=== PATIENT | male | born 1945 | race Caucasian/White ===

== ENCOUNTER 2020-03-25 12:22 | Emergency (ER) | payer MEDICARE, SELFPAY ==
[2020-03-25 12:31] VITALS: BP 156/59; PULSE 69; RESP 18; TEMP 36.9; O2SAT 94; BMI 47.0
--- NOTE | 2020-03-25 12:41 | ED_ITS ---
HPI - Back Pain/Injury General Chief Complaint: Back Pain/Injury Stated Complaint: lower back pain Time Seen by Provider: 03/25/20 12:41 History of Present Illness HPI Narrative: Patient complains of back pain after a fall 1 week ago, he has pre-existing compression fractures at L2 and L3 in his back and his pain is now in the same area but is worse he has no numbness or weakness no incontinence no changes to bowel or bladder, no other injury in the fall He is having problems with activities of daily life he does have a walker and a cane at home but cannot manipulate the walker in the bathroom or into the kitchen so he says he is able to make do with the cane, he has not taken any medication for the pain yet and the pain is moderate and comfortable when he lays down, but painful when he tries to change position or bend Related Data Previous Rx's Medication Instructions Recorded oxycodone 5 mg PO Q6H PRN #14 cap 03/25/20 Allergies Allergy/AdvReac Type Severity Reaction Status Date / Time naproxen [From Naprosyn] Allergy Mild UNKNOWN Verified 03/25/20 12:35 Review of Systems Review of Systems: No numbness no weakness no radiation of pain no paresthesias no abdominal pain no dysuria no incontinence no chest pain no abdominal pain no vomiting Yes all other systems are reviewed and are negative [facility] Past Medical History [facility] Narrative: Patient has medical history of diabetes and longstanding back pain with a history of a compression fracture sometime ago, as well as hypertension Source: nursing notes reviewed Medical History (Updated 03/25/20 @ 14:43 by POORNIMA Alarcon) Back fracture Diabetes Social History Social History Advance Directives: No Advance Directives Information Provided: No Physical Exam Vital Signs: Vital Signs: Last Vital Signs Temp 98.4 F 03/25/20 12:31 Pulse 69 03/25/20 12:31 Resp 18 03/25/20 12:31 BP 156/59 H 03/25/20 12:31 Pulse Ox 94 03/25/20 12:31 Body Mass Index 47.0 Patient is A&O x3, no acute distress and comfortable laying in a comfortable position but uncomfortable with standing up or changing position in the bed He is normocephalic atraumatic Neck is supple and nontender Chest wall is nontender Abdomen is soft nontender The back has lower lumbar tenderness including midline tenderness around L1-L2 area, no bruising to the skin no wounds to the skin, no CVA tenderness Extremities are full range of motion x4 without swelling or deformity, gait is uncomfortable he is limping due to his back pain Neuro is motor is 5/5 x4, sensation is intact, cranial nerves intact as tested, balance is normal, verbal interaction is normal Course Course Course Narrative: A urine was initially ordered but patient denied any discomfort with urination and did not have to urinate during his visit so that urine was cancelled The patient was discharged with analgesics Percocet for his back pain When he called his she was upset with the disposition as she felt he needed to be admitted, I had already had a discussion with the patient about whether he felt he could do his activities of daily living or if he felt he needed to go to a rehab so we would have assistance and access to physical therapy the patient said with his walker and his cane he can safely navigate and he is able to rise up from the bed on his own and does not want to go to rehab and wants to go home he is willing to try the Percocet to see if it helps him be more comfortable at home It is made clear he could return any time and that we can facilitate him entering a rehab for assistance with his back pain if needed Discharge Plan Discharge Clinical Impression: Compression fracture of lumbar vertebra Qualifiers: Encounter type: sequela Lumbar vertebra fracture level: L2 Qualified Code(s): S32.020S - Wedge compression fracture of second lumbar vertebra, sequela Patient Disposition: Home, Self-Care Additional Instructions: X-ray showed old compression fracture which was probably aggravated in your fall, no new acute fracture was seen If you take the oxycodone for pain, make sure to take the Colace and drink plenty of fluids as it can cause constipation You can take Tylenol with this, use extra-strength Tylenol Follow with your doctor for physical therapy and possible referral to a back specialist Return any time any worse condition or concerns Prescriptions: New oxycodone 5 mg capsule 5 mg PO Q6H PRN (Reason: pain) Qty: 14 RF: 0 Interventions: ED Discharge Assessment Last Done: 03/25/20 15:09 Discharge Date/Time: 03/25/20 15:10
--- NOTE | 2020-03-25 12:42 | XR_ITS ---
EXAMINATION: XR LUMBOSACRAL SPINE CLINICAL INFORMATION: Low back pain. Fall. COMPARISON: None TECHNIQUE: Three views of the lumbosacral spine. FINDINGS: There is normal lumbar lordosis. There is loss of L2 and L3 vertebral heights likely chronic compression fractures.. Rest of vertebral heights are normal. There is loss of disc height with vacuum disc phenomena at L1-L2 and L2-L3 disc levels with ventral spondylosis. No lytic process seen. XR/XR lumbar spine 2-3V IMPRESSION: [Impression fractures L2 and L3 vertebra with moderate ventral spondylosis and degenerative disc changes with vacuum disc phenomena 1-2 and L2-L3 disc levels. No acute fracture or subluxation seen.
== END 2020-03-25 15:10 | disposition home or self-care (01) ==
PROVIDERS: Emergency Provider Emergency Medicine; PCP Internal Medicine
DX: M54.5 Low back pain (principal); R29.6 Repeated falls; Z79.899 Other long term (current) drug therapy
CPT/HCPCS: 72100; 99283

== ENCOUNTER → 2022-07-07 13:25 | Outpatient (BNVA) | payer OTHER, SELFPAY | PROVIDERS: PCP Internal Medicine; Visit Provider Internal Medicine | DX: Z01.810 Encounter for preprocedural cardiovascular examination (principal); I45.2 Bifascicular block; I25.2 Old myocardial infarction; E11.9 Type 2 diabetes mellitus without complications; Z79.4 Long term (current) use of insulin | CPT/HCPCS: 93005; 99202 ==

== ENCOUNTER → 2022-07-23 14:00 | Outpatient (REF) | payer MEDICARE, SELFPAY ==
--- NOTE | 2022-07-23 14:04 | CA_ITS ---
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 Study Quality: Technically Difficult/Contrast ECG Rhythm: Sinus Conclusions: - 1. Technically limited study despite use of contrast agent 2. Normal LV systolic function with mild LVH with impaired relaxation filling pattern 3. Limited visualization of cardiac valves with cardiac valvular Doppler within normal limits Findings Procedure Information Contrast agent, definity, is being given per protocol without apparent complications. The quality of the study was technically difficult. Left Ventricle Normal left ventricular size and systolic function. There is mildly increased left ventricular wall thickness. The visually estimated ejection fraction is between 60-65%. Spectral Doppler is indicative of an impaired relaxation filling pattern. Right Ventricle Mildly increased right ventricular cavity size. Atria The left atrium was not well visualized. Interatrial shunt cannot be excluded. The right atrium was not well visualized. Aortic Valve The aortic valve was not well visualized. There is no aortic valve stenosis. There is no aortic valve regurgitation. Mitral Valve The mitral valve was not well visualized. There is no mitral valve regurgitation. There is no mitral valve stenosis. Pulmonic Valve The pulmonic valve was not well visualized. Tricuspid Valve The tricuspid valve was not well visualized. Tricuspid regurgitation envelope is inadequate for calculation of right ventricular systolic pressure. Great Vessels The aorta was not well visualized. The pulmonary artery was not well visualized. Venous The inferior vena cava was not well visualized. Pericardium/Pleural The pericardium was not well visualized. Prior Study Comparison No significant change compared to prior study dated: 06/11/2018. Measurements 2D Linear Measurements IVSd: 1.41 0.6-0.9/0.6-1.0 cm LVIDd: 4.65 3.9-5.3/4.2-5.9 cm LVIDd Index: 2.00 2.4-3.2/2.2-3.1 cm/m2 LVIDs: 3.13 2.0-3.6 cm LVPWd: 1.11 0.7-1.1 cm LA Diam: 3.70 2.7-3.8/3.0-4.0 cm LAIDs Index: 1.59 1.5-2.3 cm/m2 LV Mass: 278.78 67-162/88-224 g LV Mass Index: 119.65 43-95/49-115 g/m2 LVOT Diam: 2.20 3.0+(-)1.3 cm Mitral Valve MV Pk E: 0.51 MV PK A: 0.88 MV Decel Time: 226.00 E/A: 0.60 E'Lateral: 4.03 E'Medial: 5.66 E/E' Med: 9.10 E/E' Lat: 12.80 PHT: 66.00 MVA PHT: 3.33 Decel [place]: 2.29 Aortic Valve AoV Pk Roe: 1.21 AoV Mn Roe: 0.84 AoV VTI: 0.22 AoV Pk Grad: 6.00 Aov Mn Grad: 3.00 GEOFF Cont.VTI: 2.71 LVOT LVOT Pk Roe: 0.78 LVOT Mn Roe: 0.51 LVOT VTI: 0.16 LVOT Pk Grad: 2.00 LVOT Mn Grad: 1.00 LVOT Diam: 2.20 LVOT Area: 3.80 Diastolic Function MV Pk E: 0.51 MV Pk A: 0.88 E/A: 0.60 E'Medial: 5.66 E/E' Med: 9.10 E' Laterial: 4.03 E/E' Lat: 12.80 Right Ventricle TAPSE (mm): 20.30 TVS' Roe: 10.50 Great Vessels Aorta Sinus of Valsalva: 3.99 2.0-3.[address] [place]: 2.78 1.7-3.4 cm Ao Asc: 3.90 2.1-3.4 cm Updated in Other Vendor System with Status of Final Fernando Moe MD electronically signed on 07/24/2022 5:20:39 PM with status of Final
== END ==
LOC: HO.CARD 14:00
PROVIDERS: PCP Internal Medicine; Visit Provider Internal Medicine
DX: Z01.810 Encounter for preprocedural cardiovascular examination (principal); I25.10 Atherosclerotic heart disease of native coronary artery without angina pectoris
CPT/HCPCS: 93306; Q9957

== ENCOUNTER 2022-09-22 12:40 | Outpatient (REF) | payer OTHER, SELFPAY ==
[2022-09-22 12:59] LABS: MANUAL DIFF FLAG NO
[2022-09-22 13:35] LABS: Basophils Absolute Auto 0.1 X10*3/uL (0.0-0.2); Basophils Percent Auto 0.6 % (0-2); Eosinophils Absolute Auto 0.2 X10*3/uL (0.0-0.4); Eosinophils Percent Auto 2.2 % (0-4); Hemoglobin 16.5 g/dl (14.0-18.0); Imm Gran Abs Auto 0.03 X10*3/uL (0.00-0.03); Imm Gran Pct Auto 0.3 % (0.0-0.4); Lymphocytes Absolute Auto 2.1 X10*3/uL (1.2-4.9); Lymphocytes Percent Auto 22.2 % (20-40); Mean Corpuscular Hemoglobin 30.8 pg (27.0-33.0); Mean Corpuscular Volume 93.5 fL (80.0-98.0); Mean Platelet Volume 10.6 fL (9.4-12.4); Monocytes Absolute Auto 0.7 X10*3/uL (0.1-1.2); Neutrophils Absolute Auto 6.2 x10*3/uL (2.0-8.3); Neutrophils Percent Auto 66.7 % (45-73); Platelet Count 244 X10*3/uL (160-400); Red Blood Count 5.35 X10*6/uL (4.60-5.80); Red Cell Distribution Width 13.1 % (11.0-16.0); White Blood Count 9.3 X10*3/uL (4.8-10.8)
[2022-09-22 13:58] LABS: INTERNATIONAL NORM RATIO 0.9 (0.9-1.1); Prothrombin Time 10.3 SEC (10.0-13.1)
[2022-09-22 14:23] LABS: Anion Gap 13 (12-20); Blood Urea Nitrogen 18 mg/dL (9-16); Calcium 9.5 mg/dL (8.4-10.2); Carbon Dioxide 24 mmol/L (22-29); Chloride 110 mmol/L (96-108); Estimated Glomerular Filt Rate > 60; Glucose Random 89 mg/dL (60-115); Potassium 4.7 mmol/L (3.3-5.1); Sodium 142 mmol/L (135-145)
== END 2022-09-22 12:41 | disposition home or self-care (01) ==
LOC: HO.LAB 12:40
PROVIDERS: PCP Internal Medicine; Visit Provider Internal Medicine
DX: E78.00 Pure hypercholesterolemia, unspecified (principal); I25.10 Atherosclerotic heart disease of native coronary artery without angina pectoris; I25.2 Old myocardial infarction
CPT/HCPCS: 36415; 80048; 85025; 85610

== ENCOUNTER → 2022-10-02 13:31 | Outpatient (BNVA) | payer OTHER, SELFPAY | PROVIDERS: PCP Internal Medicine; Visit Provider Internal Medicine | DX: Z01.810 Encounter for preprocedural cardiovascular examination (principal); I45.2 Bifascicular block; I25.10 Atherosclerotic heart disease of native coronary artery without angina pectoris; I10 Essential (primary) hypertension; I25.2 Old myocardial infarction; E11.9 Type 2 diabetes mellitus without complications; E78.5 Hyperlipidemia, unspecified; E78.00 Pure hypercholesterolemia, unspecified | CPT/HCPCS: 99212 ==

== ENCOUNTER 2022-11-17 13:40 | Outpatient (REF) | payer OTHER, SELFPAY ==
[2022-11-17 15:41] LABS: Alanine Aminotransferase 22 U/L (0-40); Albumin Level 3.7 g/dL (3.5-5.0); Alkaline Phosphatase 68 U/L (39-117); Aspartate Amino Transferase 17 U/L (5-37); Bilirubin Direct 0.2 mg/dL (0.0-0.5); Bilirubin Total 0.5 mg/dL (0.0-1.0); Cholesterol 115 mg/dL; HDL Cholesterol 44 mg/dL; LDL Cholesterol Calculated 48 mg/dl; Total Protein 6.5 g/dL (6.5-8.0); Triglycerides 119 mg/dL
== END 2022-11-17 13:41 | disposition home or self-care (01) ==
LOC: HO.LAB 13:40
PROVIDERS: PCP Internal Medicine; Visit Provider Internal Medicine
DX: I25.10 Atherosclerotic heart disease of native coronary artery without angina pectoris (principal); E78.5 Hyperlipidemia, unspecified; E78.00 Pure hypercholesterolemia, unspecified
CPT/HCPCS: 36415; 80061; 80076

== ENCOUNTER 2022-12-31 16:09 | Outpatient (REF) | payer OTHER, SELFPAY ==
[2022-12-31 18:14] LABS: Anion Gap 13 (12-20); Blood Urea Nitrogen 18 mg/dL (9-16); Calcium 9.4 mg/dL (8.4-10.2); Carbon Dioxide 25 mmol/L (22-29); Chloride 109 mmol/L (96-108); Estimated Glomerular Filt Rate > 60; Glucose Random 86 mg/dL (60-115); Potassium 4.6 mmol/L (3.3-5.1); Sodium 142 mmol/L (135-145)
[2023-01-01 11:47] LABS: Basophils Absolute Auto 0.1 X10*3/uL (0.0-0.2); Basophils Percent Auto 0.7 % (0-2); Eosinophils Absolute Auto 0.2 X10*3/uL (0.0-0.4); Eosinophils Percent Auto 2.3 % (0-4); Hematocrit 50.9 % (42.0-52.0); Hemoglobin 16.1 g/dl (14.0-18.0); Imm Gran Abs Auto 0.03 X10*3/uL (0.00-0.03); Imm Gran Pct Auto 0.3 % (0.0-0.4); Lymphocytes Absolute Auto 1.9 X10*3/uL (1.2-4.9); Lymphocytes Percent Auto 22.2 % (20-40); MANUAL DIFF FLAG NO; Mean Corpuscular HGB Conc 31.6 g/dl (31.0-36.0); Mean Corpuscular Hemoglobin 30.4 pg (27.0-33.0); Mean Platelet Volume 10.6 fL (9.4-12.4); Monocytes Absolute Auto 0.8 X10*3/uL (0.1-1.2); Monocytes Percent Auto 9.4 % (2-11); Neutrophils Absolute Auto 5.6 x10*3/uL (2.0-8.3); Neutrophils Percent Auto 65.1 % (45-73); Platelet Count 252 X10*3/uL (160-400); Red Cell Distribution Width 14.1 % (11.0-16.0); White Blood Count 8.6 X10*3/uL (4.8-10.8)
[2023-01-01 11:51] LABS: INTERNATIONAL NORM RATIO 0.9 (0.9-1.1)
== END 2022-12-31 16:10 | disposition home or self-care (01) ==
LOC: HO.HHCL 16:09
PROVIDERS: Visit Provider General Practice
DX: Z01.818 Encounter for other preprocedural examination (principal); I10 Essential (primary) hypertension
CPT/HCPCS: 36415; 80048; 85025; 85610

== ENCOUNTER 2023-03-11 15:00 | Outpatient (RCR) | payer OTHER, SELFPAY | END 2023-04-22 12:43 | disposition home or self-care (01) | LOC: HO.PT 15:00 | PROVIDERS: PCP Internal Medicine; Visit Provider Physician Assistant | DX: M53.3 Sacrococcygeal disorders, not elsewhere classified (principal) | CPT/HCPCS: 97110; 97162 ==

== ENCOUNTER 2023-05-12 13:54 | Outpatient (AMB) | payer OTHER, SELFPAY ==
--- NOTE | 2023-05-12 13:56 | MHC.OFFVIS ---
Intake Vital Signs 05/12/23 13:59 Height 5 ft 9 in Weight 266 lb 12.149 oz BMI 39.4 BP 118/68 Blood Pressure Location Lt brachial Position Sitting Pulse 103 H Intake Visit Reasons: R/S 6 month follow up Intake Note: 6 month follow up w/ EKG Accompanied by: Spouse Allergies naproxen [From Naprosyn] Allergy (Mild, Verified 05/12/23 13:59) UNKNOWN Medication List - Last Reconciled 05/12/23 by Man Fragoso MD aspirin (Adult Low Dose Aspirin) 81 mg PO DAILY finasteride 5 mg PO DAILY insulin NPH and regular human 100 unit/mL (70-30) (Novolin 70-30 FlexPen U-100 Insulin) 80 units subcut BID lisinopril 5 mg PO DAILY metformin 500 mg PO DAILY oxycodone 5 mg PO Q6H PRN rosuvastatin 40 mg PO DAILY HPI HPI Comments History of Present Illness Details Arnol returns for follow-up. Originally, seen in consultation regarding preoperative risk stratification for SI joint stabilization surgery. Based on prior documentation, history of non ST elevation myocardial infarction in 2007. At that time, stress testing had shown a possible inferior wall reversible defect. However, did not undergo cardiac catheterization. Multiple risk factors including obesity, sedentary lifestyle, diabetes on insulin. He is on lisinopril apparently for renal protection and not hypertension according to him. Due to back issues, cannot walk much. Minimal ambulation. Within that limitation, does not have any clear-cut cardiac symptoms like angina. Overall, he states that he feels fine from cardiac. Main issue still difficulty in the low back. [facility], [facility] Medical History (Updated 07/07/22 @ 16:12 by Man Fragoso MD) History of non-ST elevation myocardial infarction (NSTEMI) Bifascicular block Back fracture Diabetes Surgical History (Updated 05/12/23 @ 14:00 by Inocencia Childs) History of right hip replacement History of appendectomy H/O hernia repair Family History Mother Cancer Father Cancer Social History Alcohol intake: former Patient Tobacco Use Status: Former Tobacco user Quit Date: 2012 Years Smoked: 50 +/- Review of Systems Const All systems reviewed & are unremarkable except as noted in HPI and below Reports as per HPI and Reports no additional complaints Eyes Reports as per HPI and Denies no additional complaints ENT Denies no additional complaints and Reports as per HPI Card Reports as per HPI, Reports no additional complaints, Denies acrocyanosis, Denies chest pain, Denies leg edema, Denies lightheadedness, Denies palpitations and Denies dyspnea Resp Reports as per HPI, Denies no additional complaints and Denies dyspnea GI Reports as per HPI and Denies no additional complaints Reports no additional complaints and Reports as per HPI Musc Reports no additional complaints and Reports as per HPI Skin/Breast Reports system reviewed and no additional complaints, except as documented Neuro Reports no additional complaints and Reports as per HPI Psych Reports no additional complaints and Reports as per HPI Endo Reports no additional complaints, Reports as per HPI and Denies palpitations Hans/Lymph Reports no additional complaints and Reports as per HPI Aller/Immun Reports no additional complaints and Reports as per HPI Physical Exam Vital Signs: Last Vital Signs Pulse 103 H 05/12/23 13:59 BP 118/68 05/12/23 13:59 BMI result Body Mass Index 39.4 Const General: comfortable and no acute distress Orientation/consciousness: patient oriented x3 HEENT Other: Unremarkable Head: Yes normal to inspection Neck Neck: Yes normal visual inspection Chest Chest palpation & inspection: normal inspection of the chest Resp Auscultation: clear to auscultation bilaterally Cardio Palpation: normal PMI Heart sounds: S1 normal heart sound present, S2 normal heart sound present, no gallops, no murmurs and no rubs GI Palpation (GI): Soft to palpation Back/Spine/Pelvis Other: unremarkable Skin General skin exam: no rashes or lesions noted Neuro General: patient oriented x3 Extrem General: Yes normal to inspection Psych Mental Status: mental status grossly normal Office Procedures EKG Details: EKG with sinus tachycardia at 01:03/Min; right bundle-branch block pattern left anterior fascicular block. Similar to prior. [id number], Complete Assessment & Plan Assessment & Plan (1) Coronary artery disease: Code(s): I25.10 - Atherosclerotic heart disease of [place] coronary artery without angina pectoris (2) History of non-ST elevation myocardial infarction (NSTEMI): Code(s): I25.2 - Old myocardial infarction (3) Bifascicular block: Code(s): I45.2 - Bifascicular block Plan EKG with chronic bifascicular block. Echocardiogram with LVEF of 60-65%. No significant valvular issues. Cardiac catheterization with chronic total occlusion of the dominant proximal RCA. Bridging collaterals filling distal RCA to PDA. Mild to moderate disease in the LAD. [id number] collaterals filling PDA/PLV. Overall, stable coronary disease. No ongoing symptoms. Continue long-term aspirin. Continue statins. Cholesterol level seems well controlled. We discussed any symptoms from progressive heart block in case it happens including presyncope extra and he understands. Discussed with family who came for appointment. Coding Level of Care Code Est Pt Level 4 (98495) Diagnoses Coronary artery disease I25.10 History of non-ST elevation myocardial infarction (NSTEMI) I25.2 Bifascicular block I45.2 CPT Codes EKG - CPT: 18865-[id number], Complete ([id number])
[2023-05-12 13:59] VITALS: BP 118/68; PULSE 103; BMI 39.4
== END 2023-05-12 14:17 | disposition home or self-care (01) ==
PROVIDERS: PCP Internal Medicine; Visit Provider Internal Medicine
DX: I25.10 Atherosclerotic heart disease of native coronary artery without angina pectoris (principal); I25.2 Old myocardial infarction; I45.2 Bifascicular block
CPT/HCPCS: 93010; 99214

== ENCOUNTER → 2023-05-12 13:54 | Outpatient (BNVA) | payer OTHER, SELFPAY | PROVIDERS: PCP Internal Medicine; Visit Provider Internal Medicine | DX: I25.10 Atherosclerotic heart disease of native coronary artery without angina pectoris (principal); I45.2 Bifascicular block; I25.2 Old myocardial infarction; Z79.82 Long term (current) use of aspirin; Z79.899 Other long term (current) drug therapy | CPT/HCPCS: 93005; 99212 ==

== ENCOUNTER 2024-05-26 13:06 | Outpatient (AMB) | payer OTHER, SELFPAY ==
--- NOTE | 2024-05-26 13:09 | MHC.OFFVIS ---
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 Required: No Allergies naproxen [From Naprosyn] Allergy (Mild, Verified 05/26/24 13:15) UNKNOWN Medication List - Last Reconciled 05/26/24 by Ernestina Hassan, [employer] aspirin (Adult Low Dose Aspirin) 81 mg PO DAILY finasteride 5 mg PO DAILY insulin NPH and regular human 100 unit/mL (70-30) (Novolin 70-30 FlexPen U-100 Insulin) 80 units subcut BID lisinopril 5 mg PO DAILY metformin 500 mg PO DAILY naproxen 500 mg PO BID PRN nitroglycerin mg sublingual rosuvastatin 40 mg PO DAILY HPI HPI HS pt - pre op hip fusion/ [facility]: Details: Arnol is a 78-year-old male with past medical history morbid obesity, diabetes, hyperlipidemia, CAD with NSTEMI 2007, cardiac catheterization 09/2022 with EVENT MARKETING SPECIALIST of the proximal RCA with collaterals who presents for follow-up and preop cardiovascular clearance. Today he reports he has been feeling generally well. He does have chronic pain in his R hip and plans to have surgery to stabilize his SI joint next month. He had the same surgery on his left SI joint January 2023 without any known cardiac complications. He said he was hospitalized overnight then discharged. He ambulates with a cane. He admits to being mostly sedentary. When he walks or stands he can only tolerate 5 minutes at a time then has to sit due to pain. He has no cardiac concerns at this time. He denies chest discomfort at rest or during activity. No shortness of breath, PND, orthopnea or edema. No heart palpitations, presyncope, syncope. He has had issues with a blocked ear. He quit smoking in 2011. He has not drank any alcohol He reports compliance with all his meds. [facility] Medical History History of non-ST elevation myocardial infarction (NSTEMI) Bifascicular block Back fracture Diabetes Surgical History History of right hip replacement History of appendectomy H/O hernia repair Family History Mother Cancer Father Cancer Social History Alcohol intake: former Patient Tobacco Use Status: Former Tobacco user Years Smoked: 50 +/- Review of Systems Const All systems reviewed & are unremarkable except as noted in HPI and below ENT Details: blocked ear Denies dizziness Card Denies chest pain, Denies chest pain at rest, Denies chest pain with activity, Denies rapid heart rate, Denies pedal edema, Denies edema, Denies leg edema, Denies lightheadedness, Denies palpitations, Denies dyspnea, Denies dyspnea on exertion and Denies orthopnea Resp Denies cough, Denies dyspnea and Denies dyspnea on exertion GI Denies hematochezia and Denies change in stool character Musc Details: chronic back pain and uses cane Reports abnormal gait, Denies muscle weakness, Denies numbness, Denies radiating pain into limb, Denies stiffness and Denies tingling Neuro Reports abnormal gait, Denies dizziness, Denies numbness and Denies tingling Endo Denies palpitations Physical Exam Vital Signs: BMI result Body Mass Index 41.3 Const General: cooperative, healthy appearing, comfortable and no acute distress Orientation/consciousness: patient oriented x3 Neck Neck: Yes normal visual inspection Resp Effort & Inspection: normal respiratory effort Auscultation: clear to auscultation bilaterally, no rales, no rhonchi and no wheezes Cardio Rate: regular rate Rhythm: regular rhythm Heart sounds: S1 normal heart sound present, S2 normal heart sound present, no murmurs and no rubs Peripheral pulses: Peripheral pulses 2+ throughout GI Inspection: Yes normal to inspection Skin General skin exam: no rashes or lesions noted Neuro General: patient oriented x3 Extrem General: Yes normal to inspection, No no pedal edema and No calf tenderness Psych Appearance: grossly normal Mental Status: mental status grossly normal Speech and movement: Normal speech and movement present Office Procedures EKG Details: Today, read by me, SR, RBBB, LAFB, rate 97, QTc 482ms [id number], Complete Assessment & Plan Assessment & Plan (1) Coronary artery disease: Code(s): I25.10 - Atherosclerotic heart disease of [place] coronary artery without angina pectoris Category: Medical Plan: Hx CAD with NSTEMI 2007. He started following with our office in 2022 since preop cardiovascular clearance was needed. EKGs show chronic bifascicular block. Echocardiogram 07/23/22 with LVEF of 60-65%. No significant valvular issues. Cardiac catheterization 09/25/22 with chronic total occlusion of the dominant proximal RCA. Bridging collaterals filling distal RCA to PDA. Mild to moderate disease in the LAD. [id number] collaterals filling PDA/PLV. Today he reports no anginal symptoms. He is sedentary due to chronic right hip pain and ambulates with a cane. EKG done today showing normal sinus rhythm, right bundle branch block, left anterior fascicular block, rate 97, no significant change from prior EKG. Will continue med management for stable CAD. Continue aspirin indefinitely. Continue rosuvastatin with ideal LDL goal less than 70. He is not on beta-monty due to bifascicular block. He is on lisinopril for blood pressure control. Blood pressure today 114/62. Signs and symptoms of angina reviewed. Cardiology follow-up in 1 year, sooner if needed. (2) Bifascicular block: Code(s): I45.2 - Bifascicular block Category: Medical Plan: Chronic bifascicular block. EKG done today showing no significant change. Finding of bifascicular block discussed with him. He was asking about potential for future pacemaker. We did discuss this can not be excluded. (3) High cholesterol: Code(s): E78.00 - Pure hypercholesterolemia, unspecified Category: Medical Plan: [place] LDL goal less than 70. Labs done 11/17/2022 had shown LDL 48. He tells me that labs are followed by his PCP. Continue rosuvastatin. 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 He is hoping to be more ambulatory once his 2nd surgery is completed. (6) Preoperative cardiovascular examination: Code(s): Z01.810 - Encounter for preprocedural cardiovascular examination Category: Medical Plan: Preop for SI joint fusion at [facility] with Dr. Dennis. He can proceed with intermediate cardiac risk. Aspirin can be held if needed for the procedure then restart as soon as cleared by surgeon to do so. Continue rosuvastatin. Call/consult Cardiology if needed. Plan Time spent on chart review, documentation, interview assessment Coding Level of Care Code Est Pt Level 4 (74719) Complex EM visit Add On G2211 Diagnoses Coronary artery disease I25.10 Bifascicular block I45.2 High cholesterol E78.00 Diabetes mellitus with insulin therapy E11.9; Z79.4 Obesity E66.9 Preoperative cardiovascular examination Z01.810 CPT Codes EKG - CPT: 76286-[id number], Complete ([id number]) Time Spent (min) 30
[2024-05-26 13:10] VITALS: BP 114/62; PULSE 97; BMI 41.3
--- OUTSIDE RECORDS SUMMARY | 2024-05-26 13:12 | XMS_ITS | Encounter Summary ---
Author Organization [facility] Address [address] [place] [address] Care Team Providers Care Hotel Maintenance Worker Name Role Phone Kamilah Kincaid MD Primary Care Provide r Nathan Duvall MD Unavailable [phone] Man Fragoso MD Unavailable [phone] Encounter Details Date Type Department Care Team (Late st Contact Info) Description 01/12/2023 Scanned Document [facility] Neurosurgery [address] [phone] Social History Tobacco Use Types Packs/Day Years Used Date Smoking Tobacco: Former Cigarettes Q uit: 2012 Smokeless Tobacco: Never Alcohol Use Standard Drinks/Week Comments Never 0 (1 standard drink = 0.6 oz pur e alcohol) AUDIT-C Answer Date Recorded Q1: How often do you have a drink containing alcohol? Never 01/01/2023 Q2: How many drinks containi ng alcohol do you have on a typical day when you are drinking? Patient does not drink Q3: How often do you have si x or more drinks on one occasion? Never 01/01/2023 PHQ-2 Answer Date Recorded PHQ-2 Total Score 0 01/14/2023 Sex and Gender Information Value Date Recorded Sex Assigned at Male 11/27/2022 9:30 AM EDT Gender Identity Male 11/27/2022 9:30 AM EDT Sexual Orientation Heterosexual (straight) 11/27 9:30 AM EDT documented as of this encounter Plan of Treatment Upcoming Encounters Date Type Department Care Team (Late st Contact Info) Description 06/03/2024 1:00 PM EST Office Visit [facility] Neurosurgery [address] [phone] Shane Henriquez PA-C [address] [address] 06/21/2024 11:15 AM EDT Hospital Encounter [facility] Perioperative Surgical Services [address] [place] [address], [place] [phone] Kenny Dennis MD [address] [address] 06/21/2024 11:15 AM EDT - 06/21/2024 2:30 PM EDT Surgery [facility] Perioperative Surgical Services [address] [place] [address], [place] [phone] Kenny Dennis MD [address] [address] FIXATION SACRO ILLIAC JOINT-LEFT 07/08/2024 1:00 PM EDT Office Visit [facility] Neurosurgery [address] [phone] Shane Henriquez PA-C [address] [place] [phone] 09/23/2024 1:00 PM EDT Office Visit [facility] Neurosurgery [address] [phone] Shane Henriquez PA-C [address] [place] [phone] Scheduled Procedures Name Priority Associated Diagnoses Date/Ti me FIXATION SACRO ILLIAC JOINT Sacroiliac joint dysfunction 06/21/2024 11:15 AM EDT documented as of this encounter Visit Diagnoses Not on filedocumented in this encounter Care Teams Hotel Maintenance Worker Relationship Specialty Start Date End Date Kamilah Kincaid MD [address] [place] [address] PCP - General Internal Medicine 03/05/22 Nathan Duvall MD [address] [place] [address] Physician Psychiatry, General 03/05/22 Man Fragoso MD [address] [place] [address] Internal Medicine 04/12/24 documented as of this encounter
--- OUTSIDE RECORDS SUMMARY | 2024-05-26 13:12 | XMS_ITS ---
Author Name [facility] Organization Unknown History of Medication Use Medication Directions Dispensed Refills Start Date End Date Stat us finasteride (PROSCAR) 5 MG tablet Take 1 tablet (5 mg total) by mouth every morning. active Insulin Syringe-Needle U-100 (INSULIN SYRINGE 1CC/31GX5/16 ) 31G X 5/16 1 ML Misc 2 times a day. as directed 05/08/2021 active senna-docusate (SENNA-S) 8.6-50 MG Take 2 tablets by mouth nightly. 01/15/2023 02/15/2023 active lisinopril (PRINIVIL,ZeSTRIL) 10 MG tablet Take 1 tablet (10 mg total) by mouth every morning. 03/17/2022 active melatonin 3 MG Tab tablet Take 4 tablets (12 mg total) by mouth nightly. active finasteride (PROPECIA) 1 MG tablet Take 1 tablet (1 mg total) by mouth daily. 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
--- OUTSIDE RECORDS SUMMARY | 2024-05-26 13:12 | XMS_ITS | Encounter Summary ---
Author Organization [employer] Address [address] [facility] 7[address] [place] [address] Care Team Providers Care Supervisor Chassis Assembly Name Role Phone Kamilah Kincaid MD Primary Care Provide r Encounter Details Date Type Department Care Team (Late Contact Info) Description 08/12/2022 Telephone [facility] MEDICINE [address] [place] [phone] Kamilah Kincaid MD [address] [place] [address] [phone] Social History Tobacco Use Types Packs/Day Years Used Date Smoking Tobacco: Former Cigarettes Smokeless Tobacco: Never Alcohol Use Standard Drinks/Week Comments Never 0 (1 standard drink = 0.6 oz pur e alcohol) PHQ-2 Answer Date Recorded Patient Health Questionnaire-2 Score 0 04/17/2022 Depression Answer Date Recorded Patient Health Questionnaire-2 Score 0 04/17/2022 Sex and Gender Information Value Date Recorded Sex Assigned at Male 02/10/2022 10:22 AM EDT Legal Sex Male 10:22 AM EDT Gender Identity Male 02/10/2022 10:22 AM EDT Sexual Orientation Straight 02/10/2022 10 :22 AM EDT documented as of this encounter Plan of Treatment Upcoming Encounters Date Type Department Care Team (Late st Contact Info) Description 06/08/2024 2:15 PM EST Office Visit [facility] MEDICINE [address] [place] [phone] Kamilah Kincaid MD [address] [place] [address] [phone] documented as of this encounter Visit Diagnoses Not on filedocumented in this encounter Care Teams Supervisor Chassis Assembly Relationship Specialty Start Date End Date Kamilah Kincaid MD [address] [place] [address] PCP - General Family Medicine 12/23/17 documented as of this encounter
--- OUTSIDE RECORDS SUMMARY | 2024-05-26 13:12 | XMS_ITS | Clinical Summary ---
Author Organization [employer] Address [address] [facility] 7[address] [place] [address] Care Team Providers Care House Piping Inspector Name Role Phone Kamilah Kincaid MD Primary Care Provide r Allergies No known active allergies Medications Lidocaine 4 % patch use one daily 021 Active finasteride (Proscar) 5 MG tablet Take 5 mg by mouth daily. 016 Active BinaxNOW COVID-19 Ag Home Test kit TEST DIRECTED TODAY 022 Active bisacodyl (Dulcolax) 5 MG EC tablet take 2 tablet by oral route every day 018 Active acetaminophen (Tylenol 8 Hour) 650 MG ER tablet Take 650 mg by mouth as needed. 022 Active glucose 4 g chewable tabletIndicatio ns:Type 2 diabetes mellitus with hypoglycemia without coma, with long-term current use of insulin (CMS/[facility]) Chew 4 tablets (16 g) if needed for low blood sugar. 50 tablet 12 023 Active metFORMIN (Glucophage) 500 MG tablet TAKE 1 TABLET BY MOUTH EVERY MORNING AND 2 TABLETS EVERY EVENING 270 tablet 1 023 Active rosuvastatin (Crestor) 40 MG tablet Take 40 mg by mouth in the morning. 023 Active aspirin 81 MG EC tablet Take 81 mg by mouth. 023 Active Blood Glucose Monitoring Suppl (FreeStyle Lite) deviceIndicatio ns:Type 2 diabetes mellitus with hypoglycemia without coma, with long-term current use of insulin (CMS/HCC) Inject under the skin 2 times daily. Use to monitor blood glucose twice daily 1 each 023 Active naproxen (Naprosyn) 500 MG tablet TAKE 1 TABLET BY MOUTH TWICE DAILY NEEDED FOR PAIN 180 tablet 024 Active insulin NPH-insulin regular (HumuLIN 70/30) (70-30) 100 UNIT/ML injectionIndica tions:Type 2 diabetes mellitus without complication, with long-term current use of insulin (CMS/HCC) ADMINISTER 65 UNITS SUBCUTANEOUSLY TWICE DAILY WITH BREAKFAST AND WITH DINNER 40 mL 1 024 Active insulin syringe-needle U-100 (BD Insulin Syringe U/F) 31G X 5/16 1 mL misc Use twice a day as instructed 100 each 12 024 2024 Active FREESTYLE LITE test strip TEST BLOOD SUGAR TWICE DAILY BEFORE MEALS 50 strip 11 024 Active NovoLIN 70/30 (70-30) 100 UNIT/ML injectionIndica tions:Type 2 diabetes mellitus without complication, with long-term current use of insulin (CMS/HCC) ADMINISTER 65 UNITS UNDER THE SKIN TWICE DAILY WITH BREAKFAST AND WITH DINNER 40 mL 1 024 Active lisinopril 10 MG tablet TAKE 1 TABLET(10 MG) BY MOUTH EVERY DAY IN THE MORNING 90 tablet 1 024 Active nitroglycerin (Nitrostat) 0.4 MG SL tabletIndicatio ns:History of [place] (myocardial infarction) PLACE 1 TABLET (0.4MG) BY SUNLINGUAL ROUTE AT 1ST SIGN OF ATTACK; MAY REPEAT EVERY 5 MINUTES UNTIL RELIEF; IF PAIN PERSISTS AFTER 3 TABLETS IN 15 MINUTES, PROMPT MEDICAL ATTENTION IS RECOMMENDED. 25 tablet 1 025 Active nitroglycerin (Nitrostat) 0.4 MG SL tabletIndicatio ns:History of [place] (my[place] infarction) PLACE 1 TABLET (0.4MG) BY SUNLINGUAL ROUTE AT 1ST SIGN OF ATTACK; MAY REPEAT EVERY 5 MINUTES UNTIL RELIEF; IF PAIN PERSISTS AFTER 3 TABLETS IN 15 MINUTES, PROMPT MEDICAL ATTENTION IS RECOMMENDED. 25 tablet 1 023 2024 Discontinued(R eorder (will not trigger notification to Pharmacy)) Active Problems Problem Noted Date Diagnosed Date Clogged ear, left 12/08/2023 Assessment & Plan (12/08/2023 3:46 PM EDT): Patient reports he has an appointment on 02/2024, I advise not to miss his appointment Excessive ear wax, bilateral 06/10/2023 Pre-operative exam 12/31/2022 Assessment & Plan (01/04/2023 7:37 PM EDT): Pt is moderate risk for orthopedic surgery. EKG with stable bifasicular block. Hold insulin day of surgery, hold Lisinopril day of surgery Pain management per ortho team, not on any chronic opioids History of [place] (my[place] infarction) 06/26/2022 Diabetes mellitus 05/15/2022 Assessment & Plan (12/08/2023 11:47 AM EDT): Diabetes is: controlled - Lab Results Component Value Date HGBA1C 6.0 06/10/2023 HGBA1C 5.6 06/26/2022 HGBA1C 4.8 10/15/2021 HGBA1C 4.8 10/15/2021 - Lab Results Component Value Date CREATININE 0.82 12/31/2022 -Changes: None - Diabetic eye exam:pending - Diabetic foot exam:pending - Continue lifestyle modifications - Continue current medications - Follow up: 3 months Assessment & Plan (06/12/2023 5:09 PM EST): Diabetes is: controlled - Lab Results Component Value Date HGBA1C 6.0 06/10/2023 HGBA1C 5.6 06/26/2022 HGBA1C 4.8 10/15/2021 HGBA1C 4.8 10/15/2021 - Lab Results Component Value Date CREATININE 0.82 12/31/2022 -Changes: none - Diabetic eye exam:up to date - Diabetic foot exam:up to date - Continue lifestyle modifications - Continue current medications - Follow up: 3 months Disorder of sacrum 04/25/2021 Assessment & Plan (06/18/2022 9:14 AM EST): Surgery planned for later in the month, sacral fusion Attend pre-op June 26, 2022 Medication list revised to remove out of date and duplicate medications Polyp of colon 08/24/2017 Overview (12/31/2022): repeat screening colonoscopy in 2020 repeat screening colonoscopy in 2020 repeat screening colonoscopy in 2020 Hypertension 03/02/2012 Assessment & Plan (12/08/2023 3:46 PM EDT): Patient reports BP 120/75mmhg C/w same medication regimen and interventions Assessment & Plan (06/12/2023 5:08 PM EST): - Aerobic exercise to reduce BP. Initial goal of 30 min walk 3-5x/week. Increase as tolerated. - low-sodium diet (goal: <2g/day) and heart healthy diet such as DASH to reduce BP and prevent ASCVD. - Home BP monitoring 1-2 x day with goal of <140/90. - Seek immediate medical attention for chest pain, palpitations, SOB, syncope, or sudden changes in mental status. - Do not change or discontinue current prescriptions without first consulting health care provider Chronic low back pain 10/13/2011 Erectile dysfunction 10/13/2011 Severe obesity (BMI 35.0-39.9) with comorbidity 10/13/2011 Resolved Problems Problem Noted Date Diagnosed Date Resolved Date Occult blood in stools 04/17/202206/18 Shoulder joint pain 09/14/2017 01/01/20 23 Hyperlipidemia 06/04/2012 06/18/2022 Diabetes mellitus type 2, uncomplicated 10/13/2011 06/26/2022 Assessment & Plan (06/18/2022 9:14 AM EST): Fasting blood glucoses reportedly < 120 Continue current insulin regimen plus Metformin Encounters Date Type Department Care Team Description 05/05/2024 Refill [facility] [address] [place] [address] Kamilah Kincaid MD History of [place] (my[place] infarction) 05/03/2024 Telephone [facility] [address] [place], [place] [phone] Kamilah Kincaid MD PRE-OP 04/09/2024 Refill [facility] [address] [place], [place] [phone] Kamilah Kincaid MD 03/28/2024 Telephone [facility] [address] [place] [phone] Kamilah Kincaid MD FYI 03/25/2024 Refill [facility] [address] [place], [place] [phone] Kamilah Kincaid MD Type 2 diabetes mellitus without complication, with long-term current use of insulin ([facility]) from Last 3 Months Immunizations Name Administration Dates Next Due Influenza, High Dose Seasona l, Preservative Free 02/02/2019,02/21/2018,03/23/2017,01/19 Influenza, IIV3, injectable 03/06/2014,1 04/16/2010,01/14/2010,02/07,01/27/2007 Influenza, Split (incl. colby fied surface antigen) 03/09/2013,03/02/2012 Nicole SARS-CoV-2 Vaccination 06/27/2020 Novel [id number], preservative-free 02/23/2009 Pneumococcal Conjugate PCV 13 05/13/2016 Pneumococcal Polysaccharide PPSV23 12/07/2012 Rabies, intramuscular 03/24/2014 Tdap 09/01/2012 Zoster, live 02/01/2014 Social History Tobacco Use Types Packs/Day Years Used Date Smoking Tobacco: Former Cigarettes Smokeless Tobacco: Never Tobacco Cessation:Counseling Given: Not Answered Alcohol Use Standard Drinks/Week Comments Never 0 (1 standard drink = 0.6 oz pur e alcohol) PHQ-2 Answer Date Recorded Patient Health Questionnaire-2 Score 0 04/17/2022 Housing Stability Answer Date Recorded What is your housing situation today? I have ric cristhian 01/28/[address] you li ve. Do you have problems with any of the following? None of the above 01/28/2023 Food Insecurity Answer Date Recorded Within the past 12 months, y ou worried that your food would run out before you got money to buy more: Never True 01/28/2023 Within the past 12 months,th e food you bought just didn't last and you didn't have enough money to get more: Never True Transportation Answer Date Recorded In the past 12 months, has l ack of transportation kept you from medical appts, meetings, work or from getting things needed for daily living? No 01/28/2023 Utilities Answer Date Recorded In the past 12 months, has t he electric, gas, oil or water company threatened to shut off services in your home? No 01/28/2023 Depression Answer Date Recorded Patient Health Questionnaire-2 Score 0 04/17/2022 Sex and Gender Information Value Date Recorded Sex Assigned at Male 02/10/2022 10:22 AM EDT Legal Sex Male 10:22 AM EDT Gender Identity Male 02/10/2022 10:22 AM EDT Sexual Orientation Straight 02/10/2022 10 :22 AM EDT Last Filed Vital Signs Vital Sign Reading Time Taken Comments Blood Pressure 151/81 06/10/2023 3:05 PM EST Pulse 89 06/10/2023 3:05 PM EST Temperature 36.1 ??C (97 ??F) 06/10/2023 3:05 PM EST Respiratory Rate 16 06/10/2023 3:05 PM EST Oxygen Saturation 98% 06/10/2023 3:05 PM EST Inhaled Oxygen Concentration - - Weight 123 kg (270 lb 3.2 oz) 06/10/2023 3:05 PM EST Height 175.3 cm (5' 9 ) 06/10/2023 3:05 PM EST Body Mass Index 39.9 06/10/2023 3:05 PM EST Plan of Treatment Upcoming Encounters Date Type Department Care Team (Late st Contact Info) Description 06/08/2024 2:15 PM EST Office Visit [facility] [address] [place] [address] Kamilah Kincaid MD [address] [place] [address] Health Maintenance Due Date Last Done Comments Diabetes: Foot Exam 10/20/1955 Eye Exam 10/20/1955 Alcohol/Substance Use Screening 1957 Hepatitis C Screening 10/20/1963 Diabetes: Urine Protein Screening 1964 Zoster Vaccines (2 of 3) 03/29/2014 02/01/2014 RSV Patients and Patients Aged 60 years or older (1 - 1-dose 75+ series) 2020 DTaP/Tdap/Td Vaccines (2 - Td or Tdap) 09/01/2022 09/01/2012 Depression Screening 04/17/2023 04/17/2022, 04/17/19 SDOH Screening 04/17/2023 04/17/2022 Lipid Panel 11/18/2023 11/17/2022, 06/11, 10/15/2021 Diabetes: Hemoglobin A1C 12/09/2023 024, 06/26/2022, 10/15/2021 COVID-19 Vaccine ( season) 2023 04/11/2021, 06/27/2020 Influenza Vaccine (#1) 2023 9, 02/21/2018, 03/23/2017, Additional history exists Tobacco Screening 01/01/2024 12/31/2022 Pneumococcal Vaccine: 50+ Years Completed 05/13/2016, 12/07/2012 HIB Vaccines Aged Out No longer eligi ble based on patient's age to complete this topic HPV Vaccines Aged Out No longer eligi ble based on patient's age to complete this topic Hepatitis A Vaccines Aged Out No long er eligible based on patient's age to complete this topic Hepatitis B Vaccines Aged Out No long er eligible based on patient's age to complete this topic IPV Vaccines Aged Out No longer eligi ble based on patient's age to complete this topic Meningococcal Vaccine Aged Out No jeevan tomás eligible based on patient's age to complete this topic RSV under 20 months Aged Out No longe r eligible based on patient's age to complete this topic Rotavirus Vaccines Aged Out No longer eligible based on patient's age to complete this topic Procedures Procedure Name Priority Date/Time Associated Diagnosis Comments POCT GLYCATED HEMOGLOBIN, TOTAL Routine 06/10/2023 3:07 PM EST Type 2 diabetes mellitus with hypoglycemia without coma, with long-term current use of insulin ([facility]) LIPID PANEL, STANDARD Routine 11/17/2022 1:55 PM EDT from Last 3 Months or Most Recently Relevant to Health Maintenance Results * POCT HGB A1C (06/10/2023 3:07 PM EST) Hemoglobin A1C 6.0 4.0 - 6.0 % QC Media Lot # [id number] Lot# Expiration Date Blood 06/10/2023 3:07 PM EST us Kamilah Gtz MD POINT OF CARE TEST EN TER/EDIT ORDERABLES Final Result * Lipid Panel, Standard (11/17/2022 1:55 PM EDT) Triglycerides 119 mg/dL [facility] Comment:Desirable Triglyceri de: less than 150 mg/dLBorderline High Triglyceride 150-199 mg/dLHigh Triglyceride: 200-499 mg/dLVery High Triglyceride: greater than or equal to 5OO mg/dL Cholesterol 115 mg/dL [facility] Comment:Desirable Cholestero l: less than 200 mg/dLBorderline High Cholesterol: 200-239 mg/dLHigh Cholesterol: greater than 239 mg/dL LDL Cholesterol Calculated 48 mg/dl [facility] Comment:Desirable LDL: less than 100 mg/dLNear Optimal/Above Optimal LDL: 110- 129 mg/dLBorderline High LDL: 130-159 mg/dLHigh LDL: 160-189 mg/dLVery High LDL: greater than or equal to 190 mg/dL HDL Cholesterol 44 mg/dL [facility] Comment:Desirable HDL: great er than 40 mg/dL Note: This HDL assay may give artificially low results in patients with liver disease. 11/17/2022 1:55 PM EDT 11/17/2022 1:55 PM EDT us Generic External Data Provider LAB BLOOD ORDERAB LES Final Result [facility] [address] [place] [phone] from Last 3 Months or Most Recently Relevant to Health Maintenance Insurance [facility] Care Teams House Piping Inspector Relationship Specialty Start Date End Date Kamilah Kincaid MD [address] [place] [id number] PCP - General Family Medicine 12/23/17
--- OUTSIDE RECORDS SUMMARY | 2024-05-26 13:12 | XMS_ITS | Encounter Summary ---
Author Organization [facility] Address [address] [place] [address] Care Team Providers Care Reel Hooker Name Role Phone Kamilah Kincaid MD Primary Care Provide r Nathan Duvall MD Unavailable [phone] Man Fragoso MD Unavailable [phone] Encounter Details Date Type Department Care Team (Late Contact Info) Description 01/09/[address] [facility] Neurosurgery [address] [phone] Social History Tobacco Use Types [...] more drinks on one occasion? Never 01/01/2023 Sex and Gender Information Value Date Recorded Sex Assigned at Male 11/27/2022 9:30 AM EDT Gender Identity Male 11/27/2022 9:30 AM EDT Sexual Orientation Heterosexual (straight) 11/27 9:30 AM EDT documented as of this encounter Plan of Treatment Upcoming Encounters Date Type Department Care Team (Late Contact Info) Description 06/03/2024 1:00 PM EST Office Visit [facility] Neurosurgery [address] [phone] Shane Henriquez PA-C [address] [address] 06/21/2024 11:15 AM EDT Hospital Encounter [facility] Services [address] [place] [address], [place] [phone] Kenny Dennis MD [address] [address] 06/21/2024 11:15 AM EDT - 06/21/2024 2:30 PM EDT Surgery [facility] Services [address] [place] [address], [place] [phone] Kenny Dennis MD [address] [address] FIXATION SACRO ILLIAC JOINT-LEFT 07/08/2024 1:00 PM EDT Office Visit [facility] Neurosurgery [address] [phone] Shane Henriquez PA-C [address] [address] 09/23/2024 1:00 PM EDT Office Visit [facility] Neurosurgery [address] [phone] Shane Henriquez PA-C [address] [place] [phone] Scheduled Procedures Name Priority Associated Diagnoses Date/Ti me FIXATION SACRO ILLIAC JOINT Sacroiliac joint dysfunction 06/21/2024 11:15 AM EDT documented as of this encounter Visit Diagnoses Not on filedocumented in this encounter Care Teams Reel Hooker Relationship Specialty Start Date End Date Kamilah Kincaid MD [address] [place] [address] PCP - General Internal Medicine 03/05/22 Nathan Duvall MD [address] [place] [address] Physician Psychiatry, General 03/05/22 Man Fragoso MD [address] [place] [address] Internal Medicine 04/12/24 documented as of this encounter
--- OUTSIDE RECORDS SUMMARY | 2024-05-26 13:13 | XMS_ITS | Encounter Summary ---
Author Organization [facility] Address [address] [place] [address] Care Team Providers Care Estimate Clerk Name Role Phone Kamilah Kincaid MD Primary Care Provide r Nathan Duvall MD Unavailable [phone] Man Fragoso MD Unavailable [phone] Encounter Details Date Type Department Care Team (Late st Contact Info) Description 03/07/2024 Scanned Document [facility] Neurosurgery [address] [phone] [place] [address] Social History Tobacco Use Types Packs/Day Years [...] Description 06/03/2024 1:00 PM EST Office Visit [facility] Neurosurgery [address] [phone] Shane Henriquez PA-C [address] [address] 06/21/2024 11:15 AM EDT Hospital Encounter [facility] Perioperative Surgical Services [address] [place] [phone] Kenny Dennis MD [address] [phone] 06/21/2024 11:15 AM EDT - 06/21/2024 2:30 PM EDT Surgery [facility] Perioperative Surgical Services [address] [place] [address], [place] [phone] Kenny Dennis MD [address] [place] [address] [phone] FIXATION SACRO ILLIAC JOINT-LEFT 07/08/2024 1:00 PM EDT Office Visit [facility] Neurosurgery [address] [phone] Shane Henriquez PA-C [address] [address] 09/23/2024 1:00 PM EDT Office Visit [facility] Neurosurgery [address] [phone] Shane Henriquez PA-C [address] [address] Scheduled Procedures Name Priority Associated Diagnoses Date/Ti me FIXATION SACRO ILLIAC JOINT Sacroiliac joint dysfunction 06/21/2024 11:15 AM EDT documented as of this encounter Visit Diagnoses Not on filedocumented in this encounter Care Teams Estimate Clerk Relationship Specialty Start Date End Date Kamilah Kincaid MD [address] [place] [address] PCP - General Internal Medicine 03/05/22 Nathan Duvall MD [address] [place] [address] Physician Psychiatry, General 03/05/22 Man Fragoso MD [address] [place] [address] Internal Medicine 04/12/24 documented as of this encounter
--- OUTSIDE RECORDS SUMMARY | 2024-05-26 13:13 | XMS_ITS | Encounter Summary ---
Author Organization [facility] Address [address] [place] [address] Care Team Providers Care Braille Coder Name Role Phone Kamilah Kincaid MD Primary Care Provide r Nathan Duvall MD Unavailable [phone] Man Fragoso MD Unavailable [phone] Encounter Details Date Type Department Care Team (Late st Contact Info) Description 03/16/2023 Scanned Document [facility] Neurosurgery [address] [phone] Social History Tobacco Use Types [...] Description 06/03/2024 1:00 PM EST Office Visit [facility] Neurosurgery [address] [phone] Shane Henriquez PA-C [address] [address] 06/21/2024 11:15 AM EDT Hospital Encounter [facility] Perioperative Surgical Services [address] [place] [address], [place] [phone] Kenny Dennis MD [address] [address] 06/21/2024 11:15 AM EDT - 06/21/2024 2:30 PM EDT Surgery [facility] Perioperative Surgical Services [address] [place] [address], [place] [phone] Kenny Dennis MD [address] [address] FIXATION SACRO ILLIAC JOINT-LEFT 07/08/2024 1:00 PM EDT Office Visit [facility] Neurosurgery [address] [phone] Shane Henriquez PA-C [address] [place] [address] 09/23/2024 1:00 PM EDT Office Visit [facility] Neurosurgery [address] [phone] Shane Henriquez PA-C [address] [place] [address] [phone] Scheduled Procedures Name Priority Associated Diagnoses Date/Ti me FIXATION SACRO ILLIAC JOINT Sacroiliac joint dysfunction 06/21/2024 11:15 AM EDT documented as of this encounter Visit Diagnoses Not on filedocumented in this encounter Care Teams Braille Coder Relationship Specialty Start Date End Date Kamilah Kincaid MD [address] [place] [address] PCP - General Internal Medicine 03/05/22 Nathan Duvall MD [address] [place] [address] Physician Psychiatry, General 03/05/22 Man Fragoso MD [address] [place] [address] Internal Medicine 04/12/24 documented as of this encounter
--- OUTSIDE RECORDS SUMMARY | 2024-05-26 13:13 | XMS_ITS | Encounter Summary ---
Author Organization [facility] Address [address] [place] [address] Care Team Providers Care 4Th Grade Math Teacher Name Role Phone Kamilah Kincaid MD Primary Care Provide r Nathan Duvall MD Unavailable [phone] Man Fragoso MD Unavailable [phone] Encounter Details Date Type Department Care Team (Late st Contact Info) Description 03/14/2024 Scanned Document [facility] Neurosurgery [address] [phone] [place] [address] Social History Tobacco Use Types Packs/Day Years [...] Description 06/03/2024 1:00 PM EST Office Visit [facility] Neurosurgery [address] [phone] Shane Henriquez PA-C [address] [address] 06/21/2024 11:15 AM EDT Hospital Encounter [facility] Perioperative Surgical Services [address] [place] [address] [phone] Kenny Dennis MD [address] [phone] 06/21/2024 11:15 AM EDT - 06/21/2024 2:30 PM EDT Surgery [facility] Perioperative Surgical Services [address] [place] [address], [place] [phone] Kenny Dennis MD [address] [place] [address] [phone] FIXATION SACRO ILLIAC JOINT-LEFT 07/08/2024 1:00 PM EDT Office Visit [facility] Neurosurgery [address] [phone] Shane Henriquez PA-C [address] [address] 09/23/2024 1:00 PM EDT Office Visit [facility] Neurosurgery [address] [phone] Shane Henriquez PA-C [address] [address] Scheduled Procedures Name Priority Associated Diagnoses Date/Ti me FIXATION SACRO ILLIAC JOINT Sacroiliac joint dysfunction 06/21/2024 11:15 AM EDT documented as of this encounter Visit Diagnoses Not on filedocumented in this encounter Care Teams 4Th Grade Math Teacher Relationship Specialty Start Date End Date Kamilah Kincaid MD [address] [place] [address] PCP - General Internal Medicine 03/05/22 Nathan Duvall MD [address] [place] [address] Physician Psychiatry, General 03/05/22 Man Fragoso MD [address] [place] [address] Internal Medicine 04/12/24 documented as of this encounter
--- OUTSIDE RECORDS SUMMARY | 2024-05-26 13:13 | XMS_ITS | Encounter Summary ---
Author Organization [facility] Address [address] [place] [address] Care Team Providers Care Hospice Volunteer Name Role Phone Kamilah Kincaid MD Primary Care Provide r Nathan Duvall MD Unavailable [phone] Man Fragoos MD Unavailable [phone] Encounter Details Date Type Department Care Team (Late st Contact Info) Description 04/22/2023 Scanned Document [facility] Neurosurgery [address] [phone] Social History Tobacco Use Types [...] Description 06/03/2024 1:00 PM EST Office Visit [facility] Neurosurgery [address] [phone] Shane Henriquez PA-C [address] [address] 06/21/2024 11:15 AM EDT Hospital Encounter [facility] Perioperative Surgical Services [address] [place] [address], [place] [phone] Kenny Dennis MD [address] [address] 06/21/2024 11:15 AM EDT - 06/21/2024 2:30 PM EDT Surgery [facility] Perioperative Surgical Services [address] [place] [address], [place] [phone] Kenny Dennis MD [address] [address] FIXATION SACRO ILLIAC JOINT-LEFT 07/08/2024 1:00 PM EDT Office Visit [facility] Neurosurgery [address] [phone] Shane Henriquez PA-C [address] [place] [address] 09/23/2024 1:00 PM EDT Office Visit [facility] Neurosurgery [address] [phone] Shane Henriquez PA-C [address] [place] [address] [phone] Scheduled Procedures Name Priority Associated Diagnoses Date/Ti me FIXATION SACRO ILLIAC JOINT Sacroiliac joint dysfunction 06/21/2024 11:15 AM EDT documented as of this encounter Visit Diagnoses Not on filedocumented in this encounter Care Teams Hospice Volunteer Relationship Specialty Start Date End Date Kamilah Kincaid MD [address] [place] [address] PCP - General Internal Medicine 03/05/22 Nathan Duvall MD [address] [place] [address] Physician Psychiatry, General 03/05/22 Man Fragoso MD [address] [place] [address] Internal Medicine 04/12/24 documented as of this encounter
--- OUTSIDE RECORDS SUMMARY | 2024-05-26 13:13 | XMS_ITS | Encounter Summary ---
Author Organization [employer] Address [address] [facility] 7t [place] [address] Care Team Providers Care Business Banking Sales Assistant Name Role Phone Kamilah Kincaid MD Primary Care Provide r Reason for Visit * Reason Onset Date Comments Paperwork/Forms 07/07/2022 Encounter Details Date Type Department Care Team ([facility] st Contact Info) Description 07/07/2022 Telephone [facility] MEDICINE [address] [place] [address] Kamilah Kincaid MD [address] [place] [address] Paperwork/Forms Social History Tobacco Use Types Packs/Day Years [...] Orientation Straight 02/10/2022 10 :22 AM EDT COVID-19 Exposure Response Date Recorded In the last 10 days, have yo u been in contact with someone who was confirmed or suspected to have Coronavirus/COVID-19? No / Unsure 06/25/2022 7:25 PM EDT documented as of this encounter Miscellaneous Notes * Telephone Encounter - Mary Eubanks - 07/07/2022 3:26 PM EDT Tc from pt requesting a call regarding paperwork regarding visit on 06/26/[address] Sulma De Santiago. Pt states that Paperwork of that visit were never fax over for his appt with [facility] today. Please contact pt at [phone] documented in this encounter Plan of Treatment Upcoming Encounters Date Type Department Care Team (Late st Contact Info) Description 06/08/2024 2:15 PM EST Office Visit [facility] MEDICINE [address] [place] [address] Kamilah Kincaid MD [address] [place] [address] documented as of this encounter Visit Diagnoses Not on filedocumented in this encounter Care Teams Business Banking Sales Assistant Relationship Specialty Start Date End Date Kamilah Kincaid MD [address] [place] [address] [phone] PCP - General Family Medicine 12/23/17 documented as of this encounter
--- OUTSIDE RECORDS SUMMARY | 2024-05-26 13:13 | XMS_ITS | Encounter Summary ---
Author Organization [facility] Address [address] [place] [address] Care Team Providers Care Director Of Programming Name Role Phone Kamilah Kincaid MD Primary Care Provide r Nathan Duvall MD Unavailable [phone] Man Fragoso MD Unavailable [phone] Encounter Details Date Type Department Care Team (Late st Contact Info) Description 03/14/2024 Scanned Document [facility] Neurosurgery [address] [phone] [place] [address] Social History Tobacco Use Types Packs/Day Years [...] Description 06/03/2024 1:00 PM EST Office Visit [facility] Neurosurgery [address] [phone] Shane Henriquez PA-C [address] [address] 06/21/2024 11:15 AM EDT Hospital Encounter [facility] Perioperative Surgical Services [address] [place] [phone] Kenny Dennis MD [address] [phone] 06/21/2024 11:15 AM EDT - 06/21/2024 2:30 PM EDT Surgery [facility] Perioperative Surgical Services [address] [place] [address], [place] [phone] Kenny Dennis MD [address] [place] [address] [phone] FIXATION SACRO ILLIAC JOINT-LEFT 07/08/2024 1:00 PM EDT Office Visit [facility] Neurosurgery [address] [phone] Shane Henriquez PA-C [address] [address] 09/23/2024 1:00 PM EDT Office Visit [facility] Neurosurgery [address] [phone] Shane Henriquez PA-C [address] [address] Scheduled Procedures Name Priority Associated Diagnoses Date/Ti me FIXATION SACRO ILLIAC JOINT Sacroiliac joint dysfunction 06/21/2024 11:15 AM EDT documented as of this encounter Visit Diagnoses Not on filedocumented in this encounter Care Teams Director Of Programming Relationship Specialty Start Date End Date Kamilah Kincaid MD [address] [place] [address] PCP - General Internal Medicine 03/05/22 Nathan Duvall MD [address] [place] [address] Physician Psychiatry, General 03/05/22 Man Fragoso MD [address] [place] [address] Internal Medicine 04/12/24 documented as of this encounter
--- OUTSIDE RECORDS SUMMARY | 2024-05-26 13:13 | XMS_ITS | Data Portability ---
Author Organization [place] - [facility] Address [address] [place] [phone] Care Team Providers Care Speech Pathology Assistant Name Role Phone DANNY TOLBERT Primary Care Provider [phone] Assessment Encounter Date Assessment Date Assessment LastModified by Organization Details LastModified Time 02/18/2024 02/18/2024 Audiometric testing today was compared to his last audiogram from 1 year ago. This shows moderate to moderately severe sensorineural hearing loss bilaterally with minimal asymmetry. His speech discrimination is still in pretty good shape overall. He should be doing quite well with properly fitted amplification. His current devices did not appear to fit in his ears very well. Patient may benefit from different hearing aid dome tip, or perhaps even consideration of a custom fit earmold. His amplification technology is very good quality and is unlikely to need to be changed. Patient's asked whether she should they should just come to our office to get amplification technology. We currently do not have the means for programming Nabor devices. I have recommended that they do what they can with their current hearing stenographer and if they are unable to get good results they could either find another audiology group that services Nabor devices or they could consider getting new technology through our audiology group. They are in agreement with this plan. [email or web address] Not available 02/18/2024 17:59:01 Plan of Treatment Reminders Order Date Submit Date Provider Last Modified By Organization Details Last Modified Time Details Appointments None record ed. Lab None record ed. Referral None record ed. Procedures None record ed. Surgeries None record ed. Imaging None record ed. Medication Orders None record ed. Patient TargetsNo targets recorded. Patient InstructionsNo instructions recorded. Reason for Referral None Reported. Results Created Date Observation Date Name Description Value Unit Range Abnormal Flag Note LastModifiedBy Organization Detail LastModifiedTime 02/22/20 audio gram No observ ation record ed. BARCODE Not Available 2023 14:20:00 02/23/2003/03/2023 audio gram No observ ation record ed. [email or web address] Not Available 02/11 13:39:45 Result Notes None recorded. Problems Name Problem SNOMED Code Status Onset Date Resolution Date Notes Provider Name and Address Organization Details Recorded Time Sensorineur al hearing loss of bilateral ears 265224623 Active 2023 Dorcas alcaraz [place] - [facility] 16:30:42 Impacted cerumen in left ear [id number] 101 Active 2023 NIRAJ HANNAH MD [address] [place] [address], [phone], [facility] - [facility] 17:59:39 Problem Notes None recorded. Procedures Surgical History Date Name Laterality Status Provider Name and Address Organization Details Recorded Time Comp Audio with Tymps (30854 & 53618) completed Dorcas Collazo [place] - [facility] 02/18/2024 16:30:36 Cerumen removal with microscope left completed NIRAJ HANNAH MD [address] [place] [address], [phone], [facility] - [facility] 02/18/2024 17:57:01 Imaging Results Imaging Date Name Status LastModified by Organiz ation Details LastModified Time 02/22/2024 audiogram completed BAR[facility] Information no t available 02/22/2024 14:20:00 03/03/2023 audiogram completed [email or web address] Information n ot available 02/23/2024 13:39:45 Procedure Notes None recorded. Medical Equipment None Reported. Allergies No known drug allergies Medications Name Sig Start Date Stop Date Status Note LastModified by Organization Details LastModified Time neomycin-po lymyxin-hyd rocort 3.5 mg/mL-10,00 0 unit/mL-1 % ear solution INSTILL 5 DROPS IN THE LEFT EAR DAILY 02/17 completed Not Available Not Available Not Available Novolin 70/30 U-100 Insulin 100 unit/mL subcutaneou s suspension ADMINISTE R 65 UNITS UNDER THE SKIN TWICE DAILY WITH BREAKFAST AND WITH DINNER active Not Available Not Available No t Available Ear Wax Removal Drops 6.5 % INSTILL 5 DROPS INTO EACH EAR TWICE DAILY FOR 5 DAYS 02/17 completed Not Available Not Available Not Available lisinopril 10 mg tablet active Not Available Not Available Not Available insulin syringe U-100 with needle 1 mL 31 gauge x 08/26 USE TWICE DAILY DIRECTED active Not Available Not Available No t Available naproxen 500 mg tablet TAKE 1 TABLET BY MOUTH TWICE DAILY NEEDED FOR PAIN active Not Available Not Available No t Available neomycin-po lymyxin-hyd rocort 3.5 mg-10,000 unit/mL-1 % ear drops,susp INSTILL 5 DROPS IN THE LEFT EAR EVERY DAY 02/17 completed Not Available Not Available Not Available rosuvastati n 40 mg tablet TAKE 1 TABLET BY MOUTH DAILY active Not Available Not Available No t Available FreeStyle Lite Strips TEST BLOOD SUGAR TWICE DAILY BEFORE MEALS active Not Available Not Available No t Available Vitals Date Recorded Body height Body mass index (BMI) Body weight Provider Name and Address Organization Details Last Updated DateTime 02/18/2024 175.26 cm 39.9 kg/m2 842015.94 g Jazmin Benjamin [place] - [facility] 02/18/2024 15:56:04 Social History None recorded. Functional Status None recorded. Mental Status None recorded. Family History Nothing Reported. Medical History Condition Response Diabetes Y Hyperlipidemia Y Hypertension Y Past Encounters Encounter ID Performer Location Encounter Start Date Encounter Closed Date Diagnosis/Indication Diagnosis SNOMED-CT Code Diagnosis ICD10 Code Diagnosis Note [id number] NIRAJ HANNAH MD [facility] [address] [phone] 02/18/2024 15:32:56 02/19/2024 07:45:49 Sensorineural hearing loss of bilateral ears 355140868 H90.3 Audiologic al evaluation results: Right ear: {{Normal N ormal through 2 kHz Mild* Moderate M oderately- severe Sev ere Profou nd}} {{hearing sloping to a mild slopi ng to a moderate s loping to moderately severe slo ping to severe* sl oping to profound f lat high frequency low frequency mid frequency cookie bite smith curve}} {{with sen sorineural hearing loss with* cond uctive hearing loss with mixed hearing loss with}} {{excellen t* good fa ir poor no measurable }} word recognitio n. Left ear: {{Normal N ormal through 2 kHz Mild* Moderate M oderately- severe Sev ere Profou nd}} {{hearing sloping to a mild slopi ng to a moderate s loping to moderately severe slo ping to severe* sl oping to profound f lat high frequency low frequency mid frequency cookie bite smith curve}} {{with sen sorineural hearing loss with* cond uctive hearing loss with mixed hearing loss with}} {{excellen t good* fa ir poor no measurable }} word recognitio n. Tympanomet ry: Right Ear:{{Type A* Type As Type Ad Type C Type C, shallow & rounded Ty pe B Type B with large volume Cou ld not maintain a hermetic seal}} Left Ear:{{Type A* Type As Type Ad Type C Type C, shallow & rounded Ty pe B Type B with large volume Cou ld not maintain a hermetic seal}} Impacted c erumen in left ear [id number] 698515 H61.22 Health Concerns Section Related Observation LastModified by Organization Detai ls LastModified Time None Recorded Concern Status LastModified by Organization Details LastModified Time None Recorded Advance Directives Directive None Recorded Payers Encounter Date Sequence Insurance Name Policy Number Policy Flores Covered Member ID Flores Member ID Guarantor Name 02/18/2024 1 [facility] - DOS ON OR AFTER 2022 - [employer] OPTIONS AND ONE CARE (MEDICARE REPLACEMENT/ADV ANTAGE - PPO) Arnol Rhodes [id number] Arnol Rhodes Notes Date Note Type Note Provider Name and Address Organization Details Recorded Time 02/18/2024 text/html 78-year-old male who comes in today accompanied by his for evaluation of his hearing. He began noticing worsening hearing loss about a year ago and was seen by Dr. Holliday. He was noted to have bilateral moderate sensorineural hearing loss. He ended up getting a pair of BTE Nabor hearing aids from a planogrammer in [facility]. He has been very unhappy with the amplification results. He has been back for 1 attempt at reprogramming without much success. He is frustrated by the continued problems with hearing. NIRAJ HANNAH MD [address] [place] [address], [place], [phone], [facility] - [facility] 02/18/2024 17:59:58
--- OUTSIDE RECORDS SUMMARY | 2024-05-26 13:13 | XMS_ITS | Clinical Summary ---
Author Organization [facility] Address [address] [place] [address] Care Team Providers Care Metal Machinist Name Role Phone Kamilah Kincaid MD Primary Care Provide r Nathan Duvall MD Unavailable [phone] Man Fragoso MD Unavailable Allergies No known active allergies Medications Medication Sig Dispensed Refills Start Date End Date Status NovoLIN 70/30 (70-30) 100 UNIT/ML injection 0.8 mL (80 Units total) every morning before breakfast. Took 75 units this AM 04/16/2022 Active lisinopril (PRINIVIL,ZeSTRIL ) 10 MG tablet Take 1 tablet (10 mg total) by mouth every morning. 03/17/2022 Active metFORMIN (GLUCOPHAGE-XR) 500 MG 24 hr tablet 1 tablet (500 mg total) nightly. 03/16/2022 Active FREESTYLE LITE strip USE DIRECTED TO CHECK BLOOD SUGAR TWICE DAILY BEFORE MEALS. 05/04/2022 Active glucose blood (FREESTYLE LITE) test strip 05/08/2021 Active glucose blood (FREESTYLE LITE) test strip USE DIRECTED TO CHECK BLOOD SUGAR TWICE DAILY BEFORE MEALS. 04/07/2022 Active glucose 4 GM chewable tablet Chew 4 tablets (16 g total). 05/11/2022 Active COVID-19 At Home Antigen Test (BinaxNOW COVID-19 Ag Home Test) Kit TEST DIRECTED TODAY 10/23/2021 Active Continuous Blood Gluc Sensor (FreeStyle Cb 2 Sensor) Misc Use per package instructions 05/11/2022 Active Continuous Blood Gluc Loom Fixer (FreeStyle Cb 2 [place]) Device Use per package instruction 05/11/2022 Active acetaminophen (TYLENOL) 650 MG CR tablet Take 1 tablet (650 mg total) by mouth 3 times daily (every 8 hours) as needed. 08/20/2021 Active finasteride (PROSCAR) 5 MG tablet Take 1 tablet (5 mg total) by mouth every morning. Active rosuvastatin (CRESTOR) 40 MG tablet Take 1 tablet (40 mg total) by mouth nightly. Active melatonin 3 MG Tab tablet Take 4 tablets (12 mg total) by mouth nightly. Active aspirin enteric coated (ECOTRIN LOW STRENGTH) 81 MG EC tabletIndications :Sacroiliac instability Take 1 tablet (81 mg total) by mouth daily. Do not start before January 24, 2023. 1 tablet 01/24/2023 Active oxyCODONE (ROXICODONE) 5 MG immediate release tabletIndications :Sacroiliac instability Take 1 tablet (5 mg total) by mouth every 4 (four) hours as needed for severe pain or moderate pain. Max Daily Amount: 30 mg 42 tablet 01/15/2023 Active senna-docusate (SENNA-S) 8.6-50 MGIndications:Sac roiliac instability Take 2 tablets by mouth nightly. 60 tablet 01/15/2023 Active Insulin Syringe-Needle U-100 (INSULIN SYRINGE 1CC/31GX5/16 ) 31G X 5/16 1 ML Misc 2 times a day. as directed 02/18/2024 Active naproxen (NAPROSYN) 500 MG tablet Take 1 tablet (500 mg total) by mouth 2 (two) times a day as needed. Active FINASTERIDE PO Take 5 mg by mouth 4 (four) times a week. 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 Diabetes mellitus 05/15/2022 Occult blood in stools 04/17/2022 Disorder of sacrum 04/25/2021 Shoulder joint pain 09/14/2017 Polyp of colon 08/24/2017 Overview (05/15/2022): repeat screening colonoscopy in 2020 repeat screening colonoscopy in 2020 Hyperlipidemia 06/04/2012 Hypertension 03/02/2012 Chronic low back pain 10/13/2011 Diabetes mellitus type 2, uncomplicated 10/13/19 12 Erectile dysfunction 10/13/2011 Obesity 10/13/2011 Encounters Date Type Department Care Team Description 05/20/2024 Telephone [facility] Neurosurgery [address] [place] [address] Kenny Dennis MD 05/03/2024 Scanned Document [facility] Neurosurgery [address] [place] [address] Kenny Dennis MD 05/03/2024 Scanned Document [facility] Neurosurgery [address] [place] [address] Kenny Dennis MD 04/25/2024 Telephone [facility] Neurosurgery [address] [place] [address] Kenny Dennis MD 04/21/2024 Telephone [facility] Neurosurgery [address] [place] [address] Kenny Dennis MD 04/18/2024 Orders Only [facility] Neurosurgery [address] [place] [address] Kenny Dennis MD 04/12/2024 2:30 PM EST Ancillary Procedure [facility] Radiology [address] [place] [address] Provider, File Room 04/12/2024 Telephone [facility] Neurosurgery [address] [place] [address] Kenny Dennis MD Advice Only 04/12/2024 Orders Only [facility] Neurosurgery [address] [place] [address] ProviderCooper MD 03/21/2024 Telephone [facility] [address] [place] [address] Rocky Mcgovern MA Advice Only 03/18/2024 Scanned Document [facility] Neurosurgery [address] [place] [address] Neurosurgery, Scan 03/14/2024 Scanned Document [facility] Neurosurgery [address] [place] [address] Rocky Mcgovern MA 03/14/2024 Telephone [facility] Neurosurgery [address] [place] [address] Rocky Mcgovern MA Advice Only 03/14/2024 Scanned Document [facility] Neurosurgery [address] [place] [address] Rocky Mcgovern MA 03/07/2024 Scanned Document [facility] Neurosurgery [address] [place] [address] Jazmin Jeffrey MA 03/01/2024 6:45 AM EST Ancillary Procedure [facility] Radiology [address] [place] [address] Provider, File Room 02/29/2024 3:30 PM EST Office Visit [facility] Neurosurgery [address] [place] [address] Kenny Dennis MD Sacroiliac instability (Primary Dx) 02/29/2024 Travel from Last 3 Months Social History Tobacco Use Types Packs/Day Years Used Date Smoking Tobacco: Former Cigarettes Q uit: 2012 Smokeless Tobacco: Never Tobacco Cessation:Counseling Given: Not [...] Orientation Heterosexual (straight) 11/27 9:30 AM EDT Last Filed Vital Signs Vital Sign Reading Time Taken Comments Blood Pressure 115/71 02/29/2024 3:44 PM EST Pulse 94 02/29/2024 3:44 PM EST Temperature 36.5 ??C (97.7 ??F) 01/15/2023 10:00 AM E DT Respiratory Rate 17 01/15/2023 10:00 AM EDT Oxygen Saturation 94% 02/29/2024 3:44 PM EST Inhaled Oxygen Concentration - - Weight 122 kg (270 lb) 02/29/2024 3:44 PM EST Height 175.3 cm (5' 9 ) 02/29/2024 3:44 PM EST Body Mass Index 39.87 02/29/2024 3:44 PM EST Plan of Treatment Upcoming Encounters Date Type Department Care Team (Late st Contact Info) Description 06/03/2024 1:00 PM EST Office Visit [facility] Neurosurgery [address] [address] Shane Henriquez PA-C [address] [place] [address] 06/21/2024 11:15 AM EDT Hospital Encounter [facility] Perioperative Surgical Services [address] [place] [phone] Kenny Dennis MD [address] [place] [address] 06/21/2024 11:15 AM EDT - 06/21/2024 2:30 PM EDT Surgery [facility] Perioperative Surgical Services [address] [place] [address] Kenny Dennis MD [address] [address] FIXATION SACRO ILLIAC JOINT-LEFT 07/08/2024 1:00 PM EDT Office Visit [facility] Neurosurgery [address] [address] Shane Henriquez PA-C [address] [address] 09/23/2024 1:00 PM EDT Office Visit [facility] Neurosurgery [address] [phone] Shane Henriquez PA-C [address] [address] Scheduled Procedures Name Priority Associated Diagnoses Date/Ti me FIXATION SACRO ILLIAC JOINT Sacroiliac joint dysfunction 06/21/2024 11:15 AM EDT Health Maintenance Due Date Last Done Comments Hepatitis C Virus Screening 1945 Creatinine with GFR 10/20/1955 Foot Exam 10/20/1955 Lipid Panel 10/20/1955 Ophthalmology Exam 10/20/1955 Microalbumin/Creatinine Ratio Urine 10/20/1963 DTaP/Tdap/Td Vaccines (1 - Tdap) 1964 Pneumococcal Vaccines 50+ (1 of 2 - PCV) 1964 Zoster (Shingles) Vaccine (1 of 2) 10/20/1995 RSV Vaccine 60 years and older and Patients (1 - 1-dose 75+ series) 2020 Hemoglobin A1C 07/17/2023 01/15/2023 Influenza Vaccine 11/12/2023 02/02/2019, , 03/23/2017, Additional history exists COVID-19 Vaccine (2 - season) 2023 06/27/2020 Hepatitis B Vaccines Aged Out No long er eligible based on patient's age to complete this topic Medical Devices Implanted Type Area Jinriksha Driver Device Identifier Shelf Expiration Date Model / Serial / Lot [id number] System Spinal Fixation 55mm 7mm Ifuse Implant Sys 3ang - [id number] Implanted:Qty: 1 on 01/14/2023 by Kenny Dennis MD at [facility] Spine Right: Sacrum [employer] 06/14/2027 [id number] / / [id number] Ifuse- Torq Implanted:Qty: 1 on 01/14/2023 by Kenny Dennis MD at [facility] Right: Sacrum [employer] [id number] / / Ifuse- Torq Implanted:Qty: 1 on 01/14/2023 by Kenny Dennis MD at [facility] Right: Sacrum [employer] [id number] / / Procedures Procedure Name Priority Date/Time Associated Diagnosis Comments CT PELVIS W/O CONTRAST Routine 04/12/2024 4:[address] PELVIS W W/O CONTRAST Routine 04/12/2024 4:[address] PELVIS W/O CONTRAST Routine 04/12/2024 4:08 PM EST OBI ARCHIVE FOR REFERENCE ONLY CT Routine 04/12/2024 2:30 PM EST OBI ARCHIVE FOR REFERENCE ONLY MR Routine 03/01/2024 6:45 AM EST HEMOGLOBIN A1C WITH ESTIMATED AVERAGE GLUCOSE Routine 01/15/2023 5:46 AM EDT from Last 3 Months or Most Recently Relevant to Health Maintenance Results * CT Pelvis without IV contrast (04/12/2024 4:08 PM EST) Only the most recent of2 resultswithin the time period is included. Anatomical Region Laterality Modality Pelvis Computed Tomogra phy External Provider MD [facility]ARY CT ORDERABLES * CT Pelvis with and without IV contrast (04/12/2024 4:08 PM EST) Anatomical Region Laterality Modality Pelvis Computed Tomogra phy External Provider MD CLEARY CT ORDERABLES * OBI Archive for reference only CT (04/12/2024 2:30 PM EST) Narrative ELVA - 04/12/2024 2:29 PM EST This order has been auto-finalized and does not contain a result. File Room Provider IMG DIGITIZE FILMS Performing Organization Address City/[facility] Co de Phone Number ELVA [phone] * OBI Archive for reference only MR (03/01/2024 6:45 AM EST) Narrative ELVA - 03/01/2024 6:44 AM EST This order has been auto-finalized and does not contain a result. File Room Provider IMG DIGITIZE FILMS Performing Organization Address [facility] de Phone Number ELVA [phone] * Hemoglobin A1c with Estimated Average Glucose (01/15/2023 5:46 AM EDT) Hemoglobin A1C 5.5 <5.7 % 01/15/2023 7:19 AM EDT [facility] Comment: A1c% ? Interpretation 5.7 - 6.0 ?Increase risk of diabetes 6.1 - 6.4 ?Higher risk of diabetes > or = 6.5 ?? Consistent with diabetes Diabetes Care, 33(Supp 1):S1-S61, 2010 Estimated Average Glucose 111 mg/dL 01/15/2023 7:19 AM EDT [facility] Blood specimen (specimen) Blood specimen / Unknown 01/15/2023 5:46 AM EDT 01/15/2023 6:14 AM EDT [facility] BLOOD ORDERABLES Performing Organization Address City/[facility] Co de Phone Number HOSPITAL LAB See Below [facility] [address] [place] [address] from Last 3 Months or Most Recently Relevant to Health Maintenance Advance Directives * Full Code (Latest Code Status on File) Date Activated Date Inactivated Comments 01/14/2023 7:54 PM * Full Code Date Activated Date Inactivated Comments 01/14/2023 11:39 AM 01/14/2023 7:54 PM Care Teams Metal Machinist Relationship Specialty Start Date End Date Kamilah Kincaid MD [address] [place] [address] PCP - General Internal Medicine 03/05/22 Nathan Duvall MD [address] [place] [address] Physician Psychiatry, General 03/05/22 Man Fragoso MD [address] [place] [address] Internal Medicine 04/12/24
--- OUTSIDE RECORDS SUMMARY | 2024-05-26 13:13 | XMS_ITS | Encounter Summary ---
Author Organization [facility] Address [address] [place] [address] Care Team Providers Care Lunch Wagon Operator Name Role Phone Kamilah Kincaid MD Primary Care Provide r Nathan Duvall MD Unavailable Man Fragoso MD Unavailable [phone] Encounter Details Date Type Department Care Team (Late st Contact Info) Description 05/03/2024 Scanned Document [facility] Neurosurgery [address] [phone] Kenny Dennis MD [address] [place], [place] [phone] Social History Tobacco Use Types Packs/Day Years [...] Description 06/03/2024 1:00 PM EST Office Visit [facility] Neurosurgery [address] [address] Shane Henriquez PA-C [address] [address] 06/21/2024 11:15 AM EDT Hospital Encounter [facility] Perioperative Surgical Services [address] [place] [phone] Kenny Dennis MD [address] [phone] 06/21/2024 11:15 AM EDT - 06/21/2024 2:30 PM EDT Surgery [facility] Perioperative Surgical Services [address] [place] [phone] Kenny Dennis MD [address] [place] [address] FIXATION SACRO ILLIAC JOINT-LEFT 07/08/2024 1:00 PM EDT Office Visit [facility] Neurosurgery [address] [phone] Shane Henriquez PA-C [address] [phone] 09/23/2024 1:00 PM EDT Office Visit [facility] Neurosurgery [address] [address] Shane Henriquez PA-C [address] [address] Scheduled Procedures Name Priority Associated Diagnoses Date/Ti me FIXATION SACRO ILLIAC JOINT Sacroiliac joint dysfunction 06/21/2024 11:15 AM EDT documented as of this encounter Visit Diagnoses Not on filedocumented in this encounter Care Teams Lunch Wagon Operator Relationship Specialty Start Date End Date Kamilah Kincaid MD [address] [place] [address] PCP - General Internal Medicine 03/05/22 Nathan Duvall MD [address] [place] [address] Physician Psychiatry, General 03/05/22 Man Fragoso MD [address] [place] [address] Internal Medicine 04/12/24 documented as of this encounter
--- OUTSIDE RECORDS SUMMARY | 2024-05-26 13:13 | XMS_ITS | Encounter Summary ---
Author Organization [facility] Address [address] [place] [address] Care Team Providers Care Urgent Care Physician Name Role Phone Kamilah Kincaid MD Primary Care Provide r Nathan Duvall MD Unavailable [phone] Man Fragoso MD Unavailable [phone] Encounter Details Date Type Department Care Team (Late st Contact Info) Description 05/03/2024 Scanned Document [facility] Neurosurgery [address] [phone] Kenny Dennis MD [address] [place], [place] [phone] Social History Tobacco Use Types Packs/Day Years [...] Description 06/03/2024 1:00 PM EST Office Visit [facility] Neurosurgery [address] [address] Shane Henriquez PA-C [address] [address] 06/21/2024 11:15 AM EDT Hospital Encounter [facility] Perioperative Surgical Services [address] [place] [phone] Kenny Dennis MD [address] [phone] 06/21/2024 11:15 AM EDT - 06/21/2024 2:30 PM EDT Surgery [facility] Perioperative Surgical Services [address] [place] [phone] Kenny Dennis MD [address] [place] [address] FIXATION SACRO ILLIAC JOINT-LEFT 07/08/2024 1:00 PM EDT Office Visit [facility] Neurosurgery [address] [phone] Shane Henriquez PA-C [address] [phone] 09/23/2024 1:00 PM EDT Office Visit [facility] Neurosurgery [address] [phone] Shane Henriquez PA-C [address] [address] Scheduled Procedures Name Priority Associated Diagnoses Date/Ti me FIXATION SACRO ILLIAC JOINT Sacroiliac joint dysfunction 06/21/2024 11:15 AM EDT documented as of this encounter Visit Diagnoses Not on filedocumented in this encounter Care Teams Urgent Care Physician Relationship Specialty Start Date End Date Kamilah Kincaid MD [address] [place] [address] PCP - General Internal Medicine 03/05/22 Nathan Duvall MD [address] [place] [address] Physician Psychiatry, General 03/05/22 Man Fragoso MD [address] [place] [address] Internal Medicine 04/12/24 documented as of this encounter
--- OUTSIDE RECORDS SUMMARY | 2024-05-26 13:13 | XMS_ITS | Encounter Summary ---
Author Organization [employer] [facility] Address [address] [facility] 7[address] [place] [address] Care Team Providers Care Neuro Ophthalmologist Name Role Phone Kamilah Kincaid MD Primary Care Provide r Reason for Visit * Reason Onset Date Comments Med Refill 05/05/2024 Encounter Details Date Type Department Care Team (Late st Contact Info) Description 05/05/2024 Refill [facility] CHC MED & PEDS [address] [place] [address] Kamilah Kincaid MD [address] [place] [address] History of [place] (myocardial infarction) Social History Tobacco Use Types Packs/Day Years Used Date Smoking Tobacco: Former Cigarettes Smokeless Tobacco: Never Alcohol Use Standard Drinks/Week Comments Never 0 (1 standard drink = 0.6 oz pur e alcohol) PHQ-2 Answer Date Recorded Patient Health Questionnaire-2 Score 0 04/17/2022 Housing Stability Answer Date Recorded What is your housing situation today? I have ric morrow 01/28/[address] you li [...] Description 06/08/2024 2:15 PM EST Office Visit [facility] MEDICINE [address] [place] [address] Kamilah Kincaid MD [address] [place] [address] documented as of this encounter Visit Diagnoses Diagnosis History of [place] (myocardial infarction) Old myocardial infarction documented in this encounter Care Teams Neuro Ophthalmologist Relationship Specialty Start Date End Date Kamilah Kincaid MD [address] [place] [address] [phone] PCP - General Family Medicine 12/23/17 documented as of this encounter
--- OUTSIDE RECORDS SUMMARY | 2024-05-26 13:13 | XMS_ITS | Encounter Summary ---
Author Organization [facility] [facility] Address [address] [facility] 7t [place] [address] Care Team Providers Care Firesetter Name Role Phone Kamilah Kincaid MD Primary Care Provide r Reason for Visit * Reason Onset Date Comments PRE-OP 05/03/2024 Encounter Details Date Type Department Care Team ([facility] st Contact Info) Description 05/03/2024 Telephone [facility] MEDICINE [address] [place] [address] Kamilah Kincaid MD [address] [place] [address] PRE-OP Social History Tobacco Use Types Packs/Day Years [...] AM EDT documented as of this encounter Miscellaneous Notes * Telephone Encounter - Mackenzie Hunter - 05/04/2024 2:06 PM EST Facility agreed to inform pt of pre op appointment scheduled on 06/08/24 with PCP Teddy Appointment reminder letter mailed * Telephone Encounter - Nicky Silvestre - 05/03/2024 11:09 AM EST Date of Surgery: 06/22 Surgical procedure being done: Left sacroiliac joint fixation Type of anesthesia: general anesthesia Lab needed: Yes EKG: No Surgeon's name: Kenny Dennis Facility name: [facility] Surgeon's office number: Surgeon's office fax number: [phone] Contact name (person you spoke with): Serge Last office note from surgeon requested: Yes documented in this encounter Plan of Treatment Upcoming Encounters Date Type Department Care Team (Late st Contact Info) Description 06/08/2024 2:15 PM EST Office Visit [facility] MEDICINE [address] [place], [place] [phone] Kamilah Kincaid MD [address] [place] [address] documented as of this encounter Visit Diagnoses Not on filedocumented in this encounter Care Teams Firesetter Relationship Specialty Start Date End Date Kamilah Kincaid MD [address] [place] [address] PCP - General Family Medicine 12/23/17 documented as of this encounter
--- OUTSIDE RECORDS SUMMARY | 2024-05-26 13:13 | XMS_ITS | Encounter Summary ---
Author Organization [facility] Address [address] [place] [address] Care Team Providers Care Machine Precision Etcher Name Role Phone Kamilah Kincaid MD Primary Care Provide r Nathan Duvall MD Unavailable [phone] Man Fragoso MD Unavailable [phone] Encounter Details Date Type Department Care Team (Late st Contact Info) Description 10/15/2022 Scanned Document [facility] Neurosurgery [address] [phone] Social History Tobacco Use Types Packs/Day Years Used Date Smoking Tobacco: Former Cigarettes Q uit: 2012 Smokeless Tobacco: Never Alcohol Use Standard Drinks/Week Comments Never 0 (1 standard drink = 0.6 oz pur e alcohol) Sex and Gender Information Value Date Recorded Sex Assigned at Male 11/27/2022 9:30 AM EDT Gender Identity Male 11/27/2022 9:30 AM EDT Sexual Orientation Heterosexual (straight) 11/27 9:30 AM EDT documented as of this encounter Plan of Treatment Upcoming Encounters Date Type Department Care Team (Late st Contact Info) Description 06/03/2024 1:00 PM EST Office Visit [facility] Neurosurgery [address] [phone] Shane Henriquez PA-C [address] [place] [phone] 06/21/2024 11:15 AM EDT Hospital Encounter [facility] Perioperative Surgical Services [address] [facility] [address] Kenny Dennis MD [address] [address] 06/21/2024 11:15 AM EDT - 06/21/2024 2:30 PM EDT Surgery [facility] Perioperative Surgical Services [address] [facility] [address] Kenny Dennis MD 35 [facility] [address] [place] [address] FIXATION SACRO ILLIAC JOINT-LEFT 07/08/2024 1:00 PM EDT Office Visit [facility] Neurosurgery [address] [phone] Shane Henriquez PA-C [address] [address] 09/23/2024 1:00 PM EDT Office Visit [facility] Neurosurgery [address] [place] [address] Shane Henriquez PA-C [address] [place] [address] Scheduled Procedures Name Priority Associated Diagnoses Date/Ti me FIXATION SACRO ILLIAC JOINT Sacroiliac joint dysfunction 06/21/2024 11:15 AM EDT documented as of this encounter Visit Diagnoses Not on filedocumented in this encounter Care Teams Machine Precision Etcher Relationship Specialty Start Date End Date Kamilah Kincaid MD [address] [place] [address] PCP - General Internal Medicine 03/05/22 Nathan Duvall MD [address] [place] [address] Physician Psychiatry, General 03/05/22 Man Fragoso MD [address] [place] [address] Internal Medicine 04/12/24 documented as of this encounter
--- OUTSIDE RECORDS SUMMARY | 2024-05-26 13:13 | XMS_ITS | Encounter Summary ---
Author Organization [facility] Address [address] [place] [address] Care Team Providers Care Marine Engineering Consultant Name Role Phone Kamilah Kincaid MD Primary Care Provide r Nathan Duvall MD Unavailable [phone] Man Fragoso MD Unavailable [phone] Encounter Details Date Type Department Care Team (Late st Contact Info) Description 05/20/2024 Telephone [facility] Neurosurgery [address] [phone] Kenny Dennis MD [address] [place] [address] Social History Tobacco Use Types Packs/Day Years [...] encounter Miscellaneous Notes * Telephone Encounter - Sisi Valerio - 05/20/2024 10:53 AM EST Contacted patient and advised him that we need to move his surgery date to 06/21/24. Patient verbalized understanding. documented in this encounter Plan of Treatment Upcoming Encounters Date Type Department Care Team (Late st Contact Info) Description 06/03/2024 1:00 PM EST Office Visit [facility] Neurosurgery [address] [phone] Shane Henriquez PA-C [address] [place] [address] 06/21/2024 11:15 AM EDT Hospital Encounter [facility] Perioperative Surgical Services [address] [place] [phone] Kenny Dennis MD [address] [place] [address] 06/21/2024 11:15 AM EDT - 06/21/2024 2:30 PM EDT Surgery [facility] Perioperative Surgical Services [address] [place] [phone] Kenny [place] MD [address] [place] [address] FIXATION SACRO ILLIAC JOINT-LEFT 07/08/2024 1:00 PM EDT Office Visit [facility] Neurosurgery [address] [phone] Shane Henriquez PA-C [address] [address] 09/23/2024 1:00 PM EDT Office Visit [facility] Neurosurgery [place] 35 [facility] [address] [place] [address] Shane Henriquez PA-C 35 [facility] 5 [place] [address] Scheduled Procedures Name Priority Associated Diagnoses Date/Ti me FIXATION SACRO ILLIAC JOINT Sacroiliac joint dysfunction 06/21/2024 11:15 AM EDT documented as of this encounter Visit Diagnoses Not on filedocumented in this encounter Care Teams Marine Engineering Consultant Relationship Specialty Start Date End Date Kamilah Kincaid MD [address] [place] [address] PCP - General Internal Medicine 03/05/22 Nathan Duvall MD [address] [place] [address] Physician Psychiatry, General 03/05/22 Man Fragoso MD [address] [place] [address] Internal Medicine 04/12/24 documented as of this encounter
--- OUTSIDE RECORDS SUMMARY | 2024-05-26 13:13 | XMS_ITS | Encounter Summary ---
Author Organization [facility] Address [address] [place] [address] Care Team Providers Care Brush Operator Name Role Phone Kamilah Kincaid MD Primary Care Provide r Nathan Duvall MD Unavailable [phone] Man Fragoso MD Unavailable [phone] Encounter Details Date Type Department Care Team (Late Contact Info) Description 03/18/2024 Scanned Document [facility] Neurosurgery [address] [place] [phone] Neurosurgery, Scan Social History Tobacco Use Types Packs/Day Years [...] [facility] Neurosurgery [address] [phone] Shane Henriquez PA-C [address] 353996 06/21/2024 11:15 AM EDT Hospital Encounter [facility] Perioperative Surgical Services [address] [place] [address], [place] [phone] Kenny [place] MD [address] [address] 06/21/2024 11:15 AM EDT - 06/21/2024 2:30 PM EDT Surgery [facility] Perioperative Surgical Services [address] [place] [address], [place] [address] Kenny [place] MD [address] 359186 FIXATION SACRO ILLIAC JOINT-LEFT 07/08/2024 1:00 PM EDT Office Visit [facility] Neurosurgery [address] [phone] Shane Henriquez PA-C [address] [phone] 09/23/2024 1:00 PM EDT Office Visit [facility] Neurosurgery [address] [phone] Shane Henriquez PA-C [address] [phone] Scheduled Procedures Name Priority Associated Diagnoses Date/Ti me FIXATION SACRO ILLIAC JOINT Sacroiliac joint dysfunction 06/21/2024 11:15 AM EDT documented as of this encounter Visit Diagnoses Not on filedocumented in this encounter Care Teams Brush Operator Relationship Specialty Start Date End Date Kamilah Kincaid MD [address] [place] [address] PCP - General Internal Medicine 03/05/22 Nathan Duvall MD [address] [place] [address] Physician Psychiatry, General 03/05/22 Man Fragoso MD [address] [place] [address] Internal Medicine 04/12/24 documented as of this encounter
--- OUTSIDE RECORDS SUMMARY | 2024-05-26 13:13 | XMS_ITS | Encounter Summary ---
Author Organization [facility] Address [address] [place] [address] Care Team Providers Care Technical Sales Representatives Name Role Phone Kamilah Kincaid MD Primary Care Provide r Nathan Duvall MD Unavailable [phone] Man Fragoso MD Unavailable [phone] Encounter Details Date Type Department Care Team (Late st Contact Info) Description 04/29/2023 Scanned Document [facility] Neurosurgery [address] [phone] Social History Tobacco Use Types [...] Description 06/03/2024 1:00 PM EST Office Visit [facility] Neurosurgery [address] [phone] Shane Henriquez PA-C [address] [address] 06/21/2024 11:15 AM EDT Hospital Encounter [facility] Perioperative Surgical Services [address] [place] [address], [place] [phone] Kenny [place] MD [address] [address] 06/21/2024 11:15 AM EDT - 06/21/2024 2:30 PM EDT Surgery [facility] Perioperative Surgical Services [address] [place] [address], [place] [phone] Kenny [place] MD [address] [address] FIXATION SACRO ILLIAC JOINT-LEFT 07/08/2024 1:00 PM EDT Office Visit [facility] Neurosurgery [address] [phone] Shane Henriquez PA-C [address] [place] [address] 09/23/2024 1:00 PM EDT Office Visit [facility] Neurosurgery [address] [phone] Shane Henriquez PA-C [address] [place] [address] 368446 Scheduled Procedures Name Priority Associated Diagnoses Date/Ti me FIXATION SACRO ILLIAC JOINT Sacroiliac joint dysfunction 06/21/2024 11:15 AM EDT documented as of this encounter Visit Diagnoses Not on filedocumented in this encounter Care Teams Technical Sales Representatives Relationship Specialty Start Date End Date Kamilah Kincaid MD [address] [place] [address] PCP - General Internal Medicine 03/05/22 Nathan Duvall MD [address] [place] [address] Physician Psychiatry, General 03/05/22 Man Fragoso MD [address] [place] [address] Internal Medicine 04/12/24 documented as of this encounter
--- OUTSIDE RECORDS SUMMARY | 2024-05-26 13:13 | XMS_ITS | Encounter Summary ---
Author Organization [facility] Address [address] [place] [address] Care Team Providers Care Commercial Maintenance Technician Name Role Phone Kamilah Kincaid MD Primary Care Provide r Nathan Duvall MD Unavailable [phone] Man Fragoso MD Unavailable [phone] Encounter Details Date Type Department Care Team (Late Contact Info) Description 06/20/2022 Scanned Document [facility] Neurosurgery [address] [phone] Neurosurgery, Scan Social History Tobacco Use Types [...] Orientation Heterosexual (straight) 11/27 9:30 AM EDT COVID-19 Exposure Response Date Recorded In the last 10 days, have yo u been in contact with someone who was confirmed or suspected to have Coronavirus/COVID-19? No / Unsure 06/23/2022 4:30 PM EDT documented as of this encounter Plan of Treatment Upcoming Encounters Date Type Department Care Team (Late Contact Info) Description 06/03/2024 1:00 PM EST Office Visit [facility] Neurosurgery [address] [phone] Shane Henriquez PA-C 35 [facility] 5 [place] [address] 06/21/2024 11:15 AM EDT Hospital Encounter [facility] Perioperative Surgical Services 80 [facility] [phone] Kenny [place] MD [address] [address] 06/21/2024 11:15 AM EDT - 06/21/2024 2:30 PM EDT Surgery [facility] Perioperative Surgical Services [address] [place] [address], [place] [address] Kenny [place] MD [address] [address] FIXATION SACRO ILLIAC JOINT-LEFT 07/08/2024 1:00 PM EDT Office Visit [facility] Neurosurgery [address] [phone] Shane Henriquez PA-C [address] [address] 09/23/2024 1:00 PM EDT Office Visit [facility] Neurosurgery [address] [place] [address] [phone] Shane Henriquez PA-C 35 [facility] 5 [place] [address] Scheduled Procedures Name Priority Associated Diagnoses Date/Ti me FIXATION SACRO ILLIAC JOINT Sacroiliac joint dysfunction 06/21/2024 11:15 AM EDT documented as of this encounter Visit Diagnoses Not on filedocumented in this encounter Care Teams Commercial Maintenance Technician Relationship Specialty Start Date End Date Kamilah Kincaid MD [address] [place] [address] PCP - General Internal Medicine 03/05/22 Nathan Duvall MD [address] [place] [address] Physician Psychiatry, General 03/05/22 Man Fragoso MD [address] [place] [address] Internal Medicine 04/12/24 documented as of this encounter
== END 2024-05-26 13:45 | disposition home or self-care (01) ==
PROVIDERS: PCP Internal Medicine; Visit Provider Nurse Practitioner Family
DX: I25.10 Atherosclerotic heart disease of native coronary artery without angina pectoris (principal); I45.2 Bifascicular block; E78.00 Pure hypercholesterolemia, unspecified; E11.9 Type 2 diabetes mellitus without complications; Z79.4 Long term (current) use of insulin; E66.9 Obesity, unspecified; Z01.810 Encounter for preprocedural cardiovascular examination
CPT/HCPCS: 93010; 99214; G2211

== ENCOUNTER → 2024-05-26 13:06 | Outpatient (BNVA) | payer OTHER, SELFPAY | PROVIDERS: PCP Internal Medicine; Visit Provider Nurse Practitioner Family | DX: Z01.810 Encounter for preprocedural cardiovascular examination (principal); I25.10 Atherosclerotic heart disease of native coronary artery without angina pectoris; I45.2 Bifascicular block; E78.00 Pure hypercholesterolemia, unspecified; E11.9 Type 2 diabetes mellitus without complications; E66.9 Obesity, unspecified; Z79.4 Long term (current) use of insulin; Z68.41 Body mass index [BMI] 40.0-44.9, adult | CPT/HCPCS: 93005; 99212 ==

== ENCOUNTER 2024-06-08 15:28 | Outpatient (REF) | payer OTHER, SELFPAY ==
[2024-06-08 16:18] LABS: MANUAL DIFF FLAG NO
[2024-06-08 16:19] LABS: Basophils Absolute Auto 0.1 X10*3/uL (0.0-0.2); Basophils Percent Auto 0.5 % (0-2); Eosinophils Absolute Auto 0.2 X10*3/uL (0.0-0.4); Eosinophils Percent Auto 1.5 % (0-4); Hematocrit 47.2 % (42.0-52.0); Hemoglobin 15.8 g/dl (14.0-18.0); Imm Gran Abs Auto 0.04 X10*3/uL (0.00-0.03); Imm Gran Pct Auto 0.4 % (0.0-0.4); Lymphocytes Absolute Auto 1.7 X10*3/uL (1.2-4.9); Lymphocytes Percent Auto 16.5 % (20-40); Mean Corpuscular HGB Conc 33.5 g/dl (31.0-36.0); Mean Corpuscular Hemoglobin 30.7 pg (27.0-33.0); Mean Corpuscular Volume 91.8 fL (80.0-98.0); Mean Platelet Volume 9.8 fL (9.4-12.4); Monocytes Absolute Auto 0.9 X10*3/uL (0.1-1.2); Monocytes Percent Auto 8.5 % (2-11); Neutrophils Absolute Auto 7.6 x10*3/uL (2.0-8.3); Neutrophils Percent Auto 72.6 % (45-73); Platelet Count 259 X10*3/uL (160-400); Red Blood Count 5.14 X10*6/uL (4.60-5.80); Red Cell Distribution Width 13.2 % (11.0-16.0); White Blood Count 10.5 X10*3/uL (4.8-10.8)
[2024-06-08 16:29] LABS: INTERNATIONAL NORM RATIO 0.9 (0.9-1.1); Prothrombin Time 10.7 SEC (10.9-12.4)
[2024-06-08 16:30] LABS: Anion Gap 11 (12-20); Blood Urea Nitrogen 23 mg/dL (9-16); Calcium 9.3 mg/dL (8.4-10.2); Carbon Dioxide 22 mmol/L (22-29); Chloride 113 mmol/L (96-108); Cholesterol 125 mg/dL (<200); Estimated Glomerular Filt Rate > 60; Glucose Random 65 mg/dL (60-115); HDL Cholesterol 40 mg/dL (>40); LDL Cholesterol Calculated 55 mg/dL (<100); Potassium 4.4 mmol/L (3.3-5.1); Sodium 142 mmol/L (135-145); Triglycerides 152 mg/dL (<150)
[2024-06-08 16:31] LABS: Partial Thromboplastin Time 28.9 SEC (26.0-36.8)
[2024-06-08 16:42] LABS: Estimated Average Glucose 126 mg/dL; Hemoglobin A1C 173.9661 umol/L
[2024-06-08 17:27] LABS: Reflex LDLD? No
--- OUTSIDE RECORDS SUMMARY | 2024-06-08 19:00 | XMS_ITS | Encounter Summary ---
Author Organization [facility] Address [address] [place] [address] Care Team Providers Care Detonator Assembler Name Role Phone Kamilah Kincaid MD Primary Care Provide r Nathan Duvall MD Unavailable [phone] Man Fragoso MD Unavailable Marquis Luo RN Unavailable Encounter Details Date Type Department Care Team ([facility] Contact Info) Description 01/12/2023 Scanned Document [facility] Neurosurgery [address] [phone] Social History Tobacco Use Types [...] Upcoming Encounters Date Type Department Care Team (Paulette Contact Info) Description 06/21/2024 11:15 AM EDT Hospital Encounter Perioperative Surgical Services 80 [facility] [place] [address] Kenny [place] MD 35 [facility] 5 [place] [address] 06/21/2024 11:15 AM EDT - 06/21/2024 2:30 PM EDT Surgery Perioperative Surgical Services 80 [facility] [place] [address] Kenny [place] MD 35 [facility] 5 [place], [place] [phone] FIXATION SACRO ILLIAC JOINT-LEFT 07/05/2024 11:00 AM EDT Office Visit [facility] Neurosurgery [address] 5 [place] [phone] Cele Jean PA-C 35 [facility] 5 [place], [place] [phone] 09/27/2024 2:30 PM EDT Office Visit [facility] Neurosurgery [address] [phone] Cele Jean PA-C [address] [place] [address] Scheduled Procedures Name Priority Associated Diagnoses Date/Ti me FIXATION SACRO ILLIAC JOINT Sacroiliac joint dysfunction 06/21/2024 11:15 AM EDT documented as of this encounter Visit Diagnoses Not on filedocumented in this encounter Care Teams Detonator Assembler Relationship Specialty Start Date End Date Kamilah Kincaid MD [address] [place] [address] PCP - General Internal Medicine 03/05/22 Nathan Duvall MD [address] [place] [address] Physician Psychiatry, General 03/05/22 Man Fragoso MD [address] [address] Internal Medicine 04/12/24 Marquis Luo, RN 35 [place] [address] Nurse Navigator Surgery, Neurosurgery 06/03/24 documented as of this encounter
--- OUTSIDE RECORDS SUMMARY | 2024-06-08 19:00 | XMS_ITS | Encounter Summary ---
Author Organization [employer] Address 75 [facility] 7t [place] [address] Care Team Providers Care Transfer Station Operator Name Role Phone Kamilah Kincaid MD Primary Care Provide r Encounter Details Date Type Department Care Team (Late Contact Info) Description 08/12/2022 Telephone [facility] MEDICINE [address] [place] [address] [phone] Kamilah Kincaid MD [address] [place] [address] [phone] Social History Tobacco Use Types Packs/Day Years [...] Care Team (Late st Contact Info) Description 09/07/2024 2:00 PM EDT Telemedicine [facility] MEDICINE [address] [place] [phone] Kamilah Kincaid MD [address] [place] [address] [phone] documented as of this encounter Visit Diagnoses Not on filedocumented in this encounter Care Teams Transfer Station Operator Relationship Specialty Start Date End Date Kamilah Kincaid MD 230 [place] [address] PCP - General Family Medicine 12/23/17 documented as of this encounter
--- OUTSIDE RECORDS SUMMARY | 2024-06-08 19:01 | XMS_ITS | Encounter Summary ---
Author Organization [facility] Address [address] [place] [address] Care Team Providers Care Electricity Trading Analyst Name Role Phone Kamilah Kincaid MD Primary Care Provide r Nathan Duvall MD Unavailable Man Fragoso MD Unavailable [phone] Marquis Luo RN Unavailable Encounter Details Date Type Department Care Team (Late st Contact Info) Description 01/09/2023 Scanned Document [facility] Neurosurgery [address] [phone] Social History Tobacco Use Types [...] Care Team (Late st Contact Info) Description 06/21/2024 11:15 AM EDT Hospital Encounter [facility] Perioperative Surgical Services 80 [place] [phone] Kenny [place] MD [address] [address] 06/21/2024 11:15 AM EDT - 06/21/2024 2:30 PM EDT Surgery [facility] Perioperative Surgical Services 80 [place] [address] Kenny [place] MD 35 [facility] 5 [place] [address] FIXATION SACRO ILLIAC JOINT-LEFT 07/05/2024 11:00 AM EDT Office Visit [facility] Neurosurgery [address] [phone] Cele Jean PA-C [address] [address] 09/27/2024 2:30 PM EDT Office Visit [facility] Neurosurgery [address] 5 [place] [address] Cele Jean PA-C [address] [place] [address] Scheduled Procedures Name Priority Associated Diagnoses Date/Ti me FIXATION SACRO ILLIAC JOINT Sacroiliac joint dysfunction 06/21/2024 11:15 AM EDT documented as of this encounter Visit Diagnoses Not on filedocumented in this encounter Care Teams Electricity Trading Analyst Relationship Specialty Start Date End Date Kamilah Kincaid MD [address] [place] [address] PCP - General Internal Medicine 03/05/22 Nathan Duvall MD 76 [place] [address] Physician Psychiatry, General 03/05/22 Man Fragoso MD [address] [place] [address] Internal Medicine 04/12/24 Marquis Luo, RN [address] [place] [address] Nurse Navigator Surgery, Neurosurgery 06/03/24 documented as of this encounter
--- OUTSIDE RECORDS SUMMARY | 2024-06-08 19:01 | XMS_ITS | Encounter Summary ---
Author Organization [employer] Address 75 [facility] 7t [place] [address] Care Team Providers Care Appraiser Name Role Phone Kamilah Kincaid MD Primary Care Provide r Encounter Details Date Type Department Care Team (Latest Contact Info) Description 06/08/2024 Travel Social History Tobacco Use Types Packs/Day Years Used Date Smoking Tobacco: Former Cigarettes Passive Smoke Exposure: Past Smokeless Tobacco: Never Alcohol Use Standard Drinks/Week Comments Never 0 (1 standard drink = 0.6 oz pur e alcohol) PHQ-2 Answer Date Recorded Patient Health Questionnaire-2 Score 0 04/17/2022 Housing Stability Answer Date Recorded What is your housing situation today? I have ric morrow 06/08/[address] you li ve. Do you have problems with any of the following? None of the above 06/08/2024 Food Insecurity Answer Date Recorded Within the past 12 months, y ou worried that your food would run out before you got money to buy more: Never True 06/08/2024 Within the past 12 months,th e food you bought just didn't last and you didn't have enough money to get more: Never True Transportation Answer Date Recorded In the past 12 months, has l ack of transportation kept you from medical appts, meetings, work or from getting things needed for daily living? No 06/08/2024 Utilities Answer Date Recorded In the past 12 months, has t he electric, gas, oil or water company threatened to shut off services in your home? No 06/08/2024 Depression Answer Date Recorded Patient Health Questionnaire-2 Score 0 04/17/2022 Internet Access Answer Date Recorded Internet Access Q1 No 06/08/2024 Internet Access Q2 I do not want or need it 05/15 Sex and Gender Information Value Date Recorded Sex Assigned at Male 02/10/2022 10:22 AM EDT Legal Sex Male 10:22 AM EDT Gender Identity Male 02/10/2022 10:22 AM EDT Sexual Orientation Straight 02/10/2022 10 :22 AM EDT documented as of this encounter Plan of Treatment Upcoming Encounters Date Type Department Care Team (Late st Contact Info) Description 09/07/2024 2:00 PM EDT Telemedicine [facility] MEDICINE [address] [place] [address] Kamilah Kincaid MD [address] [place] [address] documented as of this encounter Visit Diagnoses Not on filedocumented in this encounter Care Teams Appraiser Relationship Specialty Start Date End Date Kamilah Kincaid MD [address] [place] [address] PCP - General Family Medicine 12/23/17 documented as of this encounter
--- OUTSIDE RECORDS SUMMARY | 2024-06-08 19:01 | XMS_ITS | Encounter Summary ---
Author Organization [facility] Address [address] [place] [address] Care Team Providers Care Manager Demand Name Role Phone Kamilah Kincaid MD Primary Care Provide r Nathan Duvall MD Unavailable [phone] Man Fragoso MD Unavailable [phone] Marquis Luo RN Unavailable Encounter Details Date Type Department Care Team (Late st Contact Info) Description 10/15/2022 Scanned Document [facility] Neurosurgery [address] [place] [phone] Social History Tobacco Use Types Packs/Day [...] 06/21/2024 11:15 AM EDT Hospital Encounter [facility] Perioperative Surgical Services 80 [place] [phone] Kenny [place] MD 35 [facility] 5 [place] [address] 06/21/2024 11:15 AM EDT - 06/21/2024 2:30 PM EDT Surgery [facility] Perioperative Surgical Services [address] [place] [phone] Kenny [place] MD 35 [facility] [address] [place] [address] FIXATION SACRO ILLIAC JOINT-LEFT 07/05/2024 11:00 AM EDT Office Visit [facility] Neurosurgery [address] [place] [address] Cele Jean PA-C 35 [facility] [address] 5 [place] [address] 09/27/2024 2:30 PM EDT Office Visit [facility] Neurosurgery [address] [address] Cele Jean PA-C 35 [facility] [address] 5 [place] [address] Scheduled Procedures Name Priority Associated Diagnoses Date/Ti me FIXATION SACRO ILLIAC JOINT Sacroiliac joint dysfunction 06/21/2024 11:15 AM EDT documented as of this encounter Visit Diagnoses Not on filedocumented in this encounter Care Teams Manager Demand Relationship Specialty Start Date End Date Kamilah Kincaid MD [address] [place] [address] PCP - General Internal Medicine 03/05/22 Nathan Duvall MD [address] [place] [address] Physician Psychiatry, General 03/05/22 Man Fragoso MD [address] [place] [address] Internal Medicine 04/12/24 Marquis Luo RN [address] [place] [address] Nurse Navigator Surgery, Neurosurgery 06/03/24 documented as of this encounter
--- OUTSIDE RECORDS SUMMARY | 2024-06-08 19:01 | XMS_ITS | Encounter Summary ---
Author Organization [facility] Address [address] [place] [address] Care Team Providers Care Contact Center Rep Name Role Phone Kamilah Kincaid MD Primary Care Provide r Nathan Duvall MD Unavailable [phone] Man Fragoso MD Unavailable [phone] aMrquis Luo RN Unavailable Encounter Details Date Type Department Care Team (Late st Contact Info) Description 05/03/[address] [facility] Neurosurgery [address] 5 [place] [phone] Kenny [place] MD 35 [facility] 5 [place] [address] Social History Tobacco Use Types Packs/Day Years [...] [facility] [address] [place] [address], [place] [address] Kenny [place] MD 35 [facility] [address] 5 [place] [address] 06/21/2024 11:15 AM EDT - 06/21/2024 2:30 PM EDT Surgery [facility] Perioperative Surgical Services [address] [place] [address], [place] [address] Kenny [place] MD 35 [facility] [address] 5 [place] [address] FIXATION SACRO ILLIAC JOINT-LEFT 07/05/2024 11:00 AM EDT Office Visit [facility] Neurosurgery [address] 5 [place] [phone] Cele Jean PA-C 35 [facility] [address] 5 [place] [address] 09/27/2024 2:30 PM EDT Office Visit [facility] Neurosurgery [address] 5 [place] [address] Cele Jean PA-C 35 [facility] 5 [place] [address] Scheduled Procedures Name Priority Associated Diagnoses Date/Ti me FIXATION SACRO ILLIAC JOINT Sacroiliac joint dysfunction 06/21/2024 11:15 AM EDT documented as of this encounter Visit Diagnoses Not on filedocumented in this encounter Care Teams Contact Center Rep Relationship Specialty Start Date End Date Kamilah Kincaid MD [address] [place] [address] PCP - General Internal Medicine 03/05/22 Nathan Duvall MD [address] [place] [address] Physician Psychiatry, General 03/05/22 Man Fragoso MD [address] [place] [address] Internal Medicine 04/12/24 Marquis Luo, RN [address] [place] [address] Nurse Navigator Surgery, Neurosurgery 06/03/24 documented as of this encounter
--- OUTSIDE RECORDS SUMMARY | 2024-06-08 19:01 | XMS_ITS | Encounter Summary ---
Author Organization Formerly [facility] Address [address] [place] [address] Care Team Providers Care Adult Secondary Education Instructor Name Role Phone Kamilah Kincaid MD Primary Care Provide r Nathan Duvall MD Unavailable [phone] Man Fragoso MD Unavailable [phone] Encounter Details Date Type Department Care Team (Late st Contact Info) Description 05/20/2024 Telephone [facility] Neurosurgery [address] [phone] Kenny Dennis MD [address] [place] [address] Social History Tobacco Use Types Packs/Day Years [...] Miscellaneous Notes * Telephone Encounter - Sisi Swetha Valerio - 05/20/2024 10:53 AM EST Contacted patient and advised him that we need to move his surgery date to 06/21/24. Patient verbalized understanding. documented in this encounter Plan of Treatment Upcoming Encounters Date Type Department Care Team (Late st Contact Info) Description 06/21/2024 11:15 AM EDT Hospital Encounter [facility] Perioperative Surgical Services [address] [place] [address] [phone] Kenny Dennis MD [address] [address] 06/21/2024 11:15 AM EDT - 06/21/2024 2:30 PM EDT Surgery [facility]ioperative Surgical Services [address] [place] [address], [place] [phone] Kenny Dennis MD [address] [place] [address] FIXATION SACRO ILLIAC JOINT-LEFT 07/05/2024 11:00 AM EDT Office Visit [facility] Neurosurgery [address] [phone] Cele Jean PA-C [address] [address] 09/27/2024 2:30 PM EDT Office Visit [facility] Neurosurgery [address] [phone] Cele Jean PA-C [address] [place] [address] Scheduled Procedures Name Priority Associated Diagnoses Date/Ti me FIXATION SACRO ILLIAC JOINT Sacroiliac joint dysfunction 06/21/2024 11:15 AM EDT documented as of this encounter Visit Diagnoses Not on filedocumented in this encounter Care Teams Adult Secondary Education Instructor Relationship Specialty Start Date End Date Kamilah Kincaid MD [address] [place] [phone] PCP - General Internal Medicine 03/05/22 Nathan Duvall MD [address] [place] [address] Physician Psychiatry, General 03/05/22 Man Fragoso MD [address] [place] [address] Internal Medicine 04/12/24 documented as of this encounter
--- OUTSIDE RECORDS SUMMARY | 2024-06-08 19:01 | XMS_ITS | Encounter Summary ---
Author Organization [facility] Address [address] [place] [address] Care Team Providers Care Chest Pain Coordinator Name Role Phone Kamilah Kincaid MD Primary Care Provide r Nathan Duvall MD Unavailable [phone] Man Fragoso MD Unavailable [phone] Marquis Luo RN Unavailable Encounter Details Date Type Department Care Team ([facility] st Contact Info) Description 03/14/2024 Scanned Document [facility] Neurosurgery [address] [phone] Rocky Mcgovern MA [address] [place] [phone] Social History Tobacco Use Types Packs/Day Years [...] Description 06/21/2024 11:15 AM EDT Hospital Encounter [facility] Perioperative Surgical Services [address] [place] [address], [place] [phone] Kenny Dennis MD 35 [facility] [address] [place] [address] 06/21/2024 11:15 AM EDT - 06/21/2024 2:30 PM EDT Surgery [facility]operative [facility] Services [address] [place] [address], [place] [address] Kenny Dennis MD 35 [facility] [address] [place] [address] FIXATION SACRO ILLIAC JOINT-LEFT 07/05/2024 11:00 AM EDT Office Visit [facility] Neurosurgery [address] [place] [phone] Cele Jean PA-C 35 [facility] [address] [place] [address] 09/27/2024 2:30 PM EDT Office Visit [facility] Neurosurgery [address] [place] [address] Cele Jean PA-C 35 [facility] [address] [place] [address] Scheduled Procedures Name Priority Associated Diagnoses Date/Ti me FIXATION SACRO ILLIAC JOINT Sacroiliac joint dysfunction 06/21/2024 11:15 AM EDT documented as of this encounter Visit Diagnoses Not on filedocumented in this encounter Care Teams Chest Pain Coordinator Relationship Specialty Start Date End Date Barciona Gtz, Melanie, MD [address] [place] [phone] PCP - General Internal Medicine 03/05/22 Nathan Duvall MD [address] [place] [address] Physician Psychiatry, General 03/05/22 Man Fragoso MD [address] [place] [address] Internal Medicine 04/12/24 Marquis Luo, RN [address] [place] [phone] Nurse Navigator Surgery, Neurosurgery 06/03/24 documented as of this encounter
--- OUTSIDE RECORDS SUMMARY | 2024-06-08 19:01 | XMS_ITS | Encounter Summary ---
Author Organization [facility] Address [address] [place] [address] Care Team Providers Care New Order Clerk Name Role Phone Kamilah Kincaid MD Primary Care Provide r Nathan Duvall MD Unavailable [phone] Man Fragoso MD Unavailable Marquis Luo RN Unavailable Encounter Details Date Type Department Care Team (Late st Contact Info) Description 05/03/2024 Scanned Document [facility] Neurosurgery [address] [place] [phone] Kenny Dennis MD 35 [facility] [address] [place] [address] Social History Tobacco Use Types Packs/Day Years [...] Description 06/21/2024 11:15 AM EDT Hospital Encounter [facility] Perioperative Surgical Services [address] [place] [address], [place] [phone] Kenny Dennis MD 35 [facility] [address] [place] [address] 06/21/2024 11:15 AM EDT - 06/21/2024 2:30 PM EDT Surgery [facility] Perioperative Surgical Services [address] [place] [address], [place] [address] Kenny Dennis MD 35 [facility] [address] [place] [address] FIXATION SACRO ILLIAC JOINT-LEFT 07/05/2024 11:00 AM EDT Office Visit [facility] Neurosurgery [address] [place] [phone] Cele Jean PA-C 35 [facility] [address] [place] [address] 09/27/2024 2:30 PM EDT Office Visit [facility] Neurosurgery [address] [place] [address] Cele Jean PA-C 35 [facility] [address] [place] [address] Scheduled Procedures Name Priority Associated Diagnoses Date/Ti me FIXATION SACRO ILLIAC JOINT Sacroiliac joint dysfunction 06/21/2024 11:15 AM EDT documented as of this encounter Visit Diagnoses Not on filedocumented in this encounter Care Teams New Order Clerk Relationship Specialty Start Date End Date Kamilah Kincaid MD [address] [place] [address] PCP - General Internal Medicine 03/05/22 Nathan Duvall MD [address] [place] [address] Physician Psychiatry, General 03/05/22 Man Fragoso MD [address] [place] [address] Internal Medicine 04/12/24 Marquis Luo, RN [address] [place] [phone] Nurse Navigator Surgery, Neurosurgery 06/03/24 documented as of this encounter
--- OUTSIDE RECORDS SUMMARY | 2024-06-08 19:01 | XMS_ITS | Clinical Summary ---
Author Organization [employer] Address [address] [facility] [address] [place] [address] Care Team Providers Care Planning And Analysis Manager Name Role Phone Kamilah Kincaid MD Primary [...] coma, with long-term current use of insulin (CMS/[facility]) Chew 4 tablets (16 g) if [...] TWICE DAILY BEFORE MEALS 50 strip 11 Active lisinopril 10 MG tablet TAKE 1 TABLET(10 MG) BY MOUTH EVERY DAY IN THE MORNING 90 tablet 1 024 Active nitroglycerin (Nitrostat) 0.4 MG SL tabletIndicatio ns:History of VT (myocardial infarction) PLACE 1 TABLET (0.4MG) BY SUNLINGUAL ROUTE AT 1ST SIGN OF ATTACK; MAY REPEAT EVERY 5 MINUTES UNTIL RELIEF; IF PAIN PERSISTS AFTER 3 TABLETS IN 15 MINUTES, PROMPT MEDICAL ATTENTION IS RECOMMENDED. 25 tablet 1 025 Active NovoLIN 70/30 (70-30) 100 UNIT/ML injectionIndica tions:Type 2 diabetes mellitus without complication, with long-term current use of insulin (CMS/HCC) ADMINISTER 65 UNITS UNDER THE SKIN TWICE DAILY WITH BREAKFAST AND WITH DINNER 40 mL 1 025 Active semaglutide (Ozempic) 2 MG/1.5ML solution pen-injectorInd ications:Type 2 diabetes mellitus with hyperglycemia, with long-term current use of insulin (CMS/HCC) Inject 0.25 mg under the skin 1 (one) time per week. 1 each 12 025 Active NovoLIN 70/30 (70-30) 100 UNIT/ML injectionIndica tions:Type 2 diabetes mellitus without complication, with long-term current use of insulin (CMS/HCC) ADMINISTER 65 UNITS UNDER THE SKIN TWICE DAILY WITH BREAKFAST AND WITH DINNER 40 mL 1 024 2024 Discontinued Active Problems Problem Noted Date Diagnosed Date Preop cardiovascular exam 06/08/2024 Assessment & Plan (06/08/2024 4:47 PM EST): RCRI score is 0 which means at 3.9% risk Surgery should proceed as scheduled Patient should be n.p.o. before the procedure Insulin dose should be reduced at least to half of the dose before the procedure Patient should take his blood pressure medication the day of the procedure with a small sip of water Clogged ear, left 12/08/2023 Assessment & Plan [...] not on any chronic opioids History of VT (myocardial infarction) 06/26/2022 Diabetes mellitus 05/15/2022 Assessment & Plan (06/08/2024 4:46 PM EST): Diabetes is: controlled - Lab Results Component Value Date HGBA1C 6.0 06/08/2024 HGBA1C 6.2 (A) 06/08/2024 HGBA1C 6.0 06/10/2023 - Lab Results Component Value Date CREATININE 0.81 06/08/2024 -Changes: I will start patient on Ozempic with the goal of lowering his insulin dose and then discontinue it - Diabetic eye exam: Up-to-date - Diabetic foot exam: Pending - Continue lifestyle modifications - Continue current medications - Follow up: 3 months Assessment & Plan (12/08/2023 11:47 AM EDT): [...] in 2020 Hypertension 03/02/2012 Assessment & Plan (06/08/2024 4:44 PM EST): I advised: - low-sodium diet (goal: <2g/day) and heart healthy diet such as DASH to reduce BP and prevent ASCVD. - Home BP monitoring 1-2 x day with goal of <140/90. - Seek immediate medical attention for chest pain, palpitations, SOB, syncope, or sudden changes in mental status. - Do not change or discontinue current prescriptions without first consulting health care provider Assessment & Plan (12/08/2023 3:46 PM EDT): [...] stools 04/17/202206/18 Shoulder joint pain 09/14/2017 01/01/20 Hyperlipidemia 06/04/2012 06/18/2022 Diabetes mellitus type 2, uncomplicated 10/13/2011 06/26/2022 Assessment & Plan (06/18/2022 9:14 AM EST): Fasting blood glucoses reportedly < 120 Continue current insulin regimen plus Metformin Encounters Date Type Department Care Team Description 06/08/2024 2:15 PM EST Office Visit [facility] [address] [place] [phone] Kamilah Kincaid MD Preop cardiovascular exam (Primary Dx); Type 2 diabetes mellitus with hyperglycemia, with long-term current use of insulin ([facility]); Primary hypertension 06/08/2024 Travel 06/08/2024 Telephone [facility] [address] [place] [address] [phone] Kamilah Kincaid MD 05/30/2024 Refill [facility] [address], [place] [phone] Kamilah Kincaid MD Type 2 diabetes mellitus without complication, with long-term current use of insulin (CMS/HCC) 05/05/2024 Refill [facility] [address], [place] [phone] Kamilah Kincaid MD History of VT (myocardial infarction) 05/03/2024 Telephone [facility] [address] [facility], [place] [phone] Kamilah Kincaid MD PRE-OP 04/09/2024 Refill [facility] [address], [place] [phone] Kamilah Kincaid MD 03/28/2024 Telephone [facility] [address] [facility], [place] [phone] Kamilah Kincaid MD FYI 03/25/2024 Refill [facility] [address], [place] [phone] Kamilah Kincaid MD Type 2 diabetes mellitus without complication, with long-term current use of insulin ([facility]) from Last 3 Months Immunizations Name Administration Dates Next Due Influenza, High Dose Seasona l, Preservative Free 02/02/2019,02/21/2018,03/23/2017,01/19 Influenza, IIV3, injectable 03/06/2014,1 04/16/2010,01/14/2010,02/07,01/27/2007 Influenza, Split (incl. colby fied surface antigen) 03/09/2013,03/02/2012 Nicole SARS-CoV-2 Vaccination 06/27/2020 Novel [id number], preservative-free 02/23/2009 Pneumococcal Conjugate PCV 13 05/13/2016 Pneumococcal Polysaccharide PPSV23 12/07/2012 Rabies, intramuscular 03/24/2014 Tdap 09/01/2012 Zoster, live 02/01/2014 Social History Tobacco Use Types Packs/Day Years Used Date Smoking Tobacco: Former Cigarettes Passive Smoke Exposure: Past Smokeless Tobacco: Never Tobacco Cessation:Counseling Given: Not [...] Sign Reading Time Taken Comments Blood Pressure 133/75 06/08/2024 2:31 PM EST Pulse 96 06/08/2024 2:31 PM EST Temperature 36.5 ??C (97.7 ??F) 06/08/2024 2:31 PM ES T Respiratory Rate 16 06/08/2024 2:31 PM EST Oxygen Saturation 98% 06/10/2023 3:05 PM EST Inhaled Oxygen Concentration - - Weight 128 kg (283 lb) 06/08/2024 2:31 PM EST Height 175.3 cm (5' 9 ) 06/08/2024 2:31 PM EST Body Mass Index 41.79 06/08/2024 2:31 PM EST Plan of Treatment Upcoming Encounters Date Type Department Care Team (Late st Contact Info) Description 09/07/2024 2:00 PM EDT Telemedicine [facility] [address] [place] [phone] Kamilah Kincaid MD [address] [place] [phone] Health Maintenance Due Date Last Done Comments Diabetes: Foot Exam 10/20/1955 Eye Exam 10/20/1955 Alcohol/Substance Use Screening 1957 Hepatitis C Screening 10/20/1963 Zoster Vaccines (2 of 3) 03/29/2014 02/01/2014 RSV Patients and Patients Aged 60 years or older (1 - 1-dose 75+ series) 2020 DTaP/Tdap/Td Vaccines (2 - Td or Tdap) 09/01/2022 09/01/2012 Depression Screening 04/17/2023 04/17/2022, 04/17/19 23 COVID-19 Vaccine (3 - season) 2023 04/11/2021, 06/27/2020 Influenza Vaccine (#1) 2023 9, 02/21/2018, 03/23/2017, Additional history exists Diabetes: Hemoglobin A1C 12/06/2024 025, 06/08/2024, 06/10/2023, Additional history exists Diabetes: Urine Protein Screening 06/08/2025 06/08/2024 Lipid Panel 06/08/2025 06/08/2024, 08/0 10/2022, 06/26/2022, Additional history exists SDOH Screening 06/08/2025 06/08/2024 Tobacco Screening 06/08/2025 06/08/2024 Pneumococcal Vaccine: 50+ Years Completed 05/13/2016, 12/07/2012 [...] Procedure Name Priority Date/Time Associated Diagnosis Comments ALBUMIN, RANDOM URINE W/CREATININE Routine 06/08/2024 3:31 PM EST Type 2 diabetes mellitus with hyperglycemia, with long-term current use of insulin ([facility]) LIPID PANEL, STANDARD Routine 06/08/2024 3:31 PM EST Type 2 diabetes mellitus with hyperglycemia, with long-term current use of insulin ([facility]) APTT Routine 06/08/2024 3:31 PM EST Preop cardiovascular exam PROTHROMBIN TIME-INR Routine 06/08/2024 3:31 PM EST Preop cardiovascular exam BASIC METABOLIC PANEL Routine 06/08/2024 3:31 PM EST Preop cardiovascular exam CBC WITH AUTO DIFFERENTIAL Routine 06/08/2024 3:31 PM EST Preop cardiovascular exam HEMOGLOBIN A1C Routine 06/08/2024 3:31 PM EST Type 2 diabetes mellitus with hyperglycemia, with long-term current use of insulin ([facility]) POCT GLYCATED HEMOGLOBIN, TOTAL Routine 06/08/2024 2:36 PM EST Type 2 diabetes mellitus with hyperglycemia, with long-term current use of insulin ([facility]) POCT GLUCOSE Routine 06/08/2024 2:35 PM EST Type 2 diabetes mellitus with hyperglycemia, with long-term current use of insulin ([facility]) from Last 3 Months Results * Albumin, Random Urine W/Creatinine (06/08/2024 3:31 PM EST) Creatinine, Urine 188.70 mg/dL [facility] Microalbumin Urine 17.0 mg/L [facility] Microalbum Creatinine Ratio Ur 9.0 <30 ug/mg cr [facility] Comment:Albumin/Creatinine R atio Reference Ranges: Normal: < 30 ug/mg creatinine Microalbuminuria: 30 - 300 ug/mg creatinineClinical Albuminuria: > 300 ug/mg creatinine Urine (Urine, Random) 06/08/2024 3:31 PM EST 06/08/2024 4:20 PM EST us Kamilah Gtz MD LAB URINE ORDERABLES Final Result [facility] [address] [place] [phone] * (ABNORMAL) CBC auto differential (06/08/2024 3:31 PM EST) White Blood Count 10.5 4.8 - 10.8 X10*3/uL [facility] Red Blood Count 5.14 4.60 - 5.80 X10*6/uL [facility] Hemoglobin 15.8 14.0 - 18.0 g/dl [facility] Hematocrit 47.2 42.0 - 52.0 % [facility] Mean Corpuscular Volume 91.8 80.0 - 98.0 fL [facility] Mean Corpuscular Hemoglobin 30.7 27.0 - 33.0 pg [facility] Mean Corpuscular HGB Conc 33.5 31.0 - 36.0 g/dl [facility] Red Cell Distribution Width 13.2 11.0 - 16.0 % [facility] Platelet Count 259 160 - 400 X10*3/uL [facility] Mean Platelet Volume 9.8 9.4 - 12.4 fL [facility] Neutrophils Percent Auto 72.6 45 - 73 % [facility] Imm Gran Pct Auto 0.4 0.0 - 0.4 % [facility] Lymphocytes Percent Auto 16.5(L) 20 - 40 % [facility] Monocytes Percent Auto 8.5 2 - 11 % [facility] Eosinophils Percent Auto 1.5 0 - 4 % [facility] Basophils Percent Auto 0.5 0 - 2 % [facility] NRBC Pct Auto 0.0 0.0 - 0.2 /100WBC [facility] Neutrophils Absolute Auto 7.6 2.0 - 8.3 x10*3/uL [facility] Imm Gran Abs Auto 0.04(H) 0.00 - 0.03 X10*3/uL [facility] Lymphocytes Absolute Auto 1.7 1.2 - 4.9 X10*3/uL [facility] Monocytes Absolute Auto 0.9 0.1 - 1.2 X10*3/uL [facility] Eosinophils Absolute Auto 0.2 0.0 - 0.4 X10*3/uL [facility] Basophils Absolute Auto 0.1 0.0 - 0.2 X10*3/uL [facility] NRBC Abs Auto 0.000 0.0 - 0.012 X10*3/uL [facility] Blood Venous blood specimen / Unknown 06/08/2024 3:31 PM EST 06/08/2024 4:15 PM EST us Kamilah Gtz MD LAB BLOOD ORDERABLES Final Result Performing Organization Address City/[facility]/ZIP Co de Phone Number [facility] [address] [place] [phone] * Partial Thromboplastin Time, Activated (APTT) (06/08/2024 3:31 PM EST) Partial Thromboplastin Time 28.9 26.0 - 36.8 SEC [facility] Comment:For information rega rding the monitoring of direct thrombininhibitors, please refer to Pharmacy. Blood Venous blood specimen / Unknown 06/08/2024 3:31 PM EST 06/08/2024 4:15 PM EST us Kamilah Gtz MD LAB BLOOD ORDERABLES Final Result Performing Organization Address [facility] Co de Phone Number [facility] [address] [place] [address] [phone] * (ABNORMAL) Prothrombin Time-INR (06/08/2024 3:31 PM EST) Prothrombin Time 10.7(L) 10.9 - 12.4 SEC [facility] INTERNATIONAL NORM RATIO 0.9 0.9 - 1.1 [facility] Comment:INTERNATIONAL NORMAL IZED RATIO (INR) REFERENCE RANGES Reference RangeFor patients not on anticoagulant therapy: 0.9 - 1.1INR ranges for oral anticoagulanttherapy:For prevention and treatment of venous thrombosis and pulmonary embolism: 2.0 - 3.0For acute myocardial infarction with aspirin therapy: 2.0 - 3.0For acute myocardial infarction without aspirin therapy: 3.0 - 4.0For patients with mechanical prosthetic heart valves: 2.5 - 3.5 Blood Venous blood specimen / Unknown 06/08/2024 3:31 PM EST 06/08/2024 4:15 PM EST Kamilah Gtz MD LAB BLOOD ORDERABLES Final Result Performing Organization Address City/State/[facility] Co de Phone Number [facility] [address] [place] [phone] * Hemoglobin A1c (06/08/2024 3:31 PM EST) Hemoglobin A1c 6.0 <6.0 % [facility] Comment:Hemoglobin A1C Refer ence Range Adults: 4.8 - 6.0 % Non diabetic: < 6.0 % Goal: < 7.0 %Additional Action Suggested: > 8.0 %Note: Hemoglobin A1c results are invalid for patients with abnormal amounts of HbF. Blood transfusions may impact the HbA1c concentration in the patient sample. Estimated Average Glucose 126 mg/dL [facility] Comment:eAG = Estimated ave rage glucose which is %A1C expressed asaverage glucose, using the formula of the Z1Z-PqecttfNzfextp Glucose study (ADAG), Diabetes Care, Vol.31,#8,2007 Blood Venous blood specimen / Unknown 06/08/2024 3:31 PM EST 06/08/2024 4:15 PM EST Kamilah Gtz MD LAB BLOOD ORDERABLES Final Result Performing Organization Address [facility]/ZIP Co de Phone Number [facility] [address] [place] [phone] * (ABNORMAL) Lipid Panel, Standard (06/08/2024 3:31 PM EST) Triglycerides 152(H) <150 mg/dL [facility] Comment:Desirable Triglyceri de: less than 150 mg/dLBorderline High Triglyceride 150-199 mg/dLHigh Triglyceride: 200-499 mg/dLVery High Triglyceride: greater than or equal to 5OO mg/dL Cholesterol 125 <200 mg/dL [facility] Comment:Desirable Cholestero l: less than 200 mg/dLBorderline High Cholesterol: 200-239 mg/dLHigh Cholesterol: greater than 239 mg/dL LDL Cholesterol Calculated 55 <100 mg/dL [facility] Comment:Desirable LDL: less than 100 mg/dLNear Optimal/Above Optimal LDL: 110- 129 mg/dLBorderline High LDL: 130-159 mg/dLHigh LDL: 160-189 mg/dLVery High LDL: greater than or equal to 190 mg/dL HDL Cholesterol 40(L) >40 mg/dL [facility] Comment:Desirable HDL: great er than 40 mg/dL Note: This HDL assay may give artificially low results in patients with liver disease. Blood Venous blood specimen / Unknown 06/08/2024 3:31 PM EST 06/08/2024 4:15 PM EST us Kamilah Gtz MD LAB BLOOD ORDERABLES Final Result Performing Organization Address City/[facility]/ZIP Co de Phone Number [facility] [address] [place] [phone] * (ABNORMAL) Basic Metabolic Panel (06/08/2024 3:31 PM EST) Sodium 142 135 - 145 mmol/L [facility] Potassium 4.4 3.3 - 5.1 mmol/L [facility] Chloride 113(H) 96 - 108 mmol/L [facility] Carbon Dioxide 22 22 - 29 mmol/L [facility] Anion Gap 11(L) 12 - 20 [facility] Urea Nitrogen (BUN) 23(H) 9 - 16 mg/dL [facility] Creatinine, Serum 0.81 0.5 - 1.4 mg/dL [facility] Estimated Glomerular Filt Rate >60 [facility] Comment:Chronic Kidney Disea se: Estimated GFR < 60 mL/min/1.95t5Xumbmd Kidney Disease: Estimated GFR < 15 mL/min/1.73m2 Glucose 65 60 - 115 mg/dL [facility] Calcium 9.3 8.4 - 10.2 mg/dL [facility] Blood Venous blood specimen / Unknown 06/08/2024 3:31 PM EST 06/08/2024 4:15 PM EST Kamilah Gtz MD LAB BLOOD ORDERABLES Final Result Performing Organization Address City/State/[facility] Co de Phone Number [facility] [address] [place] [phone] * (ABNORMAL) POCT HGB A1C (06/08/2024 2:36 PM EST) Pathologist [facility] Hemoglobin A1C 6.2(A) 4.0 - 6.0 % QC Media Lot # [id number] Lot# Expiration Date Blood 06/08/2024 2:36 PM EST Kamilah Gtz MD POINT OF CARE TEST ENTER/EDIT ORDERABLES Edited Result - Final * POCT Glucose (06/08/2024 2:35 PM EST) Glucose Blood, POC 80 60 - 200 mg/dL QC Media Lot # [id number] Lot# Expiration Date [id number] Blood Capillary blood specimen / Unknown 06/08/2024 2:35 PM EST Kamilah Gtz MD POINT OF CARE TEST EN TER/EDIT ORDERABLES Final Result from Last 3 Months Insurance [facility] Care Teams Planning And Analysis Manager Relationship Specialty Start Date End Date Kamilah Kincaid MD [address] [place] [phone] PCP - General Family Medicine 12/23/17
--- OUTSIDE RECORDS SUMMARY | 2024-06-08 19:01 | XMS_ITS | Encounter Summary ---
Author Organization [facility] Address [address] [place] [address] Care Team Providers Care Wheel Roller Name Role Phone Kamilah Kincaid MD Primary Care Provide r Nathan Duvall MD Unavailable [phone] Man Fragoso MD Unavailable [phone] Marquis Luo RN Unavailable Encounter Details Date Type Department Care Team (Late st Contact Info) Description 06/03/2024 Documentation [facility] Neurosurgery [place] [address] [facility] [address] [place] [phone] Marquis Luo RN 35 [facility] [address] [place] [address] Social History Tobacco Use Types Packs/Day Years [...] AM EDT documented as of this encounter Progress Notes * Marquis Luo RN - 06/03/2024 1:00 PM EST Arnol Rhodes was seen in the office today for his preop appointment. He was provided with his surgical pre/post op educational packet. Provided with my bio card and contact information, so he canreach out with any questions or concerns. documented in this encounter Plan of Treatment Upcoming Encounters Date Type Department Care Team (Late st Contact Info) Description 06/21/2024 11:15 AM EDT Hospital Encounter [facility] Perioperative Surgical Services [address] [place] [address] [phone] Kenny Dennis MD [address] [address] 06/21/2024 11:15 AM EDT - 06/21/2024 2:30 PM EDT Surgery [facility] Perioperative Surgical Services [address] [place] [address] [phone] Kenny Dennis MD [address] [place] [phone] FIXATION SACRO ILLIAC JOINT-LEFT 07/05/2024 11:00 AM EDT Office Visit [facility] Neurosurgery [address] [phone] Cele Jean PA-C [address] [place] [address] 09/27/2024 2:30 PM EDT Office Visit [facility] Neurosurgery [address] [phone] Cele Jean PA-C [address] [place] [address] [facility] [address] [place] [address] Scheduled Procedures Name Priority Associated Diagnoses Date/Ti me FIXATION SACRO ILLIAC JOINT Sacroiliac joint dysfunction 06/21/2024 11:15 AM EDT documented as of this encounter Visit Diagnoses Not on filedocumented in this encounter Care Teams Wheel Roller Relationship Specialty Start Date End Date Kamilah Kincaid MD [address] [place] [phone] PCP - General Internal Medicine 03/05/22 Nathan Duvall MD [address] [place] [phone] Physician Psychiatry, General 03/05/22 Man Fragoso MD [address] [place] [phone] Internal Medicine 04/12/24 Marquis Luo RN [facility] 5 [place] [address] Nurse Navigator Surgery, Neurosurgery 06/03/24 documented as of this encounter
--- OUTSIDE RECORDS SUMMARY | 2024-06-08 19:01 | XMS_ITS | Encounter Summary ---
Author Organization [facility] Address [address] [place] [address] Care Team Providers Care Rn Radiology Name Role Phone Kamilah Kincaid MD Primary Care Provide r Nathan Duvall MD Unavailable [phone] Man Fragoso MD Unavailable [phone] Marquis Luo RN Unavailable Encounter Details Date Type Department Care Team (Latest Contact Info) Description 06/03/2024 Travel Social History Tobacco Use Types Packs/Day [...] Description 06/21/2024 11:15 AM EDT Hospital Encounter [facility] Perioperative Surgical Services [address] [place] [address] Kenny Dennis MD 35 [facility] [place] [address] [place] [address] 06/21/2024 11:15 AM EDT - 06/21/2024 2:30 PM EDT Surgery [facility] Perioperative Surgical Services [address] [place] [phone] Kenny Dennis MD 35 [facility] [address] [place] [address] FIXATION SACRO ILLIAC JOINT-LEFT 07/05/2024 11:00 AM EDT Office Visit [facility] Neurosurgery [address] [phone] Cele Jean PA-C 35 [facility] 5 [place] [address] 09/27/2024 2:30 PM EDT Office Visit [facility] Neurosurgery [address] [phone] Cele Jean PA-C [address] [address] Scheduled Procedures Name Priority Associated Diagnoses Date/Ti me FIXATION SACRO ILLIAC JOINT Sacroiliac joint dysfunction 06/21/2024 11:15 AM EDT documented as of this encounter Visit Diagnoses Not on filedocumented in this encounter Care Teams Rn Radiology Relationship Specialty Start Date End Date Kamilah Kincaid MD [address] [place] [phone] PCP - General Internal Medicine 03/05/22 Nathan Duvall MD [address] [place] [phone] Physician Psychiatry, General 03/05/22 Man Fragoso MD [address] [place] [phone] Internal Medicine 04/12/24 Marquis Luo RN [address] [place] [address] Nurse Navigator Surgery, Neurosurgery 06/03/24 documented as of this encounter
--- OUTSIDE RECORDS SUMMARY | 2024-06-08 19:01 | XMS_ITS | Encounter Summary ---
Author Organization [employer] Address [address] [facility] [address]t [place] [address] Care Team Providers Care Assistant Chief Engineer Name Role Phone Kamilah Kincaid MD Primary Care Provide r Reason for Visit * Reason Comments Med Refill Encounter Details Date Type Department Care Team ([facility] st Contact Info) Description 05/30/2024 Refill [facility] [address] [place] [address] Kamilah Kincaid MD [address] [place] [address] Type 2 diabetes mellitus without complication, with long-term current use of insulin ([facility]) Social History Tobacco Use Types Packs/Day Years [...] Info) Description 09/07/2024 2:00 PM EDT Telemedicine [facility] [address] [place] [phone] Kamilah Kincaid MD [address] [place] [address] documented as of this encounter Visit Diagnoses Diagnosis Type 2 diabetes mellitus without complication, with long-term current use of insulin ([facility]) documented in this encounter Care Teams Assistant Chief Engineer Relationship Specialty Start Date End Date Kamilah Kincaid MD [address] [place] [phone] PCP - General Family Medicine 12/23/17 documented as of this encounter
--- OUTSIDE RECORDS SUMMARY | 2024-06-08 19:01 | XMS_ITS | Encounter Summary ---
Author Organization Formerly [facility] Address [address] [id number] Care Team Providers Care Supervisor Meter [employer]air Shop Name Role Phone Kamilah Kincaid MD Primary Care Provide r Nathan Duvall MD Unavailable [phone] Man Fragoso MD Unavailable [phone] Marquis Luo RN Unavailable Encounter Details Date Type Department Care Team (Latest Contact Info) Description 06/03/2024 1:00 PM EST Office Visit [facility] Neurosurgery [place] [address] [facility] [address] [place] [address] Melvin Law PA-C [address] [place] [address] [place] [address] 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 Schedule POV documented in this encounter Progress Notes * Melvin Law PA-C - 06/03/2024 1:13 PM EST Subjective Patient ID: Arnol Rhodes is a 78 y.o. male here today for preop evaluation, preop teaching, andpreop consenting. The patient is scheduled to undergo left SI joint fixation/stabilization on 06/21/2024. The patient has a prior history of right sided SI joint fixation/stabilization on 01/14/2023. He didextremely well from that surgery. When he returned for a postop visit on 11/18/2023 he was bothered by some left-sided SI joint pain. Since that time he has completed a trial of conservative treatment including multiple left SI joint injections which have given him 80% relief of symptoms but not lasting and therefore he finally opted for definitive surgical intervention. Social History Socioeconomic History Marital status: Spouse name: Not on file Number of children: Not on file Years of education: Not on file Highest education level: Not on file Occupational History Not on file Tobacco Use Smoking status: Former Current packs/day: 0.00 Types: Cigarettes Quit date: 2011 Years since quittin.1 Smokeless tobacco: Never Substance and Sexual Activity Alcohol use: Never Drug use: Not Currently Types: Marijuana Sexual activity: Not on file Other Topics Concern Not on file Social History Narrative Not on file Social Determinants of Health Financial Resource Strain: Not on file Food Insecurity: Low Risk (01/28/2023) Received from [employer] Food Insecurity Within the past 12 months, you worried that your food would run out before you got money to buy more:: Never True Within the past 12 months,the food you bought just didn't last and you didn't have enough money to get more: : Never True Transportation Needs: Low Risk (01/28/2023) Received from [employer] Transportation In the past 12 months, has lack of transportation kept you from medical appts, meetings, work or from getting things needed for daily living? : No Physical Activity: Not on file Stress: Not on file Social Connections: Not on file Housing Stability: Low Risk (01/28/2023) Received from [employer] Housing Stability What is your housing situation today?: I have housing Think about the place you live. Do you have problems with any of the following? : None of the above No family history on file. Past Surgical History: Procedure Laterality Date APPENDECTOMY 1954 \\\\\\ FIXATION SACRO ILLIAC JOINT Right 01/14/2023 Procedure: FIXATION SACRO ILLIAC JOINT; Surgeon: Kenny Dennis MD; Location: Main OR; Service: Neurosurgery; Laterality: Right; HERNIA REPAIR 1990 REPAIR MENISCUS Review of Systems: Review of Systems Constitutional: Positive for activity change. HENT: Negative. Eyes: Negative. Respiratory: Negative. Cardiovascular: Negative. Musculoskeletal: Positive for back pain. Objective There were no vitals taken for this visit. Physical Exam Constitutional: Pt. is awake, and in no acute distress Pt. appears well- developed and well-nourished. HENT: Head: Normocephalic and atraumatic. Eyes: Conjunctivae are normal. Pupils are equal, round, and reactive to light. Nose: external nose normal Ears: external ears normal Pulmonary/Chest: Effort normal. Respirations non labored Neurological: Pt. is alert and oriented to person, place, and time. Skin: Skin is warm and dry. Psychiatric: Pt. has a normal mood and affect. Behavior is normal. 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 male presenting to the office today for preop evaluation, preop teaching, and preop consenting. The patient is scheduled to undergo left SI joint fixation/stabilization on 06/21/2024. Utilizing a lumbar spine model, I explained the risks of the procedure to the patient. I explained that an incision would be made in the left buttock region. I explained the basics of the dissection down through the skin, subcutaneous tissue, and muscle, to the spine. The trajectory will be identified with an x- ray (fluoroscopy). I explained the process of the placement of the SI joint fusion implants. The risks of the procedure were fully explained to the patient, and include, but are not limited to: Bleeding; infection; ongoing pain; new pain; bowel and/or vascular injury; radiation exposure; failure to improve and possible need for future lumbar surgery; wound healing issues; CSF (cerebro spinal fluid) leak which may require future operative repair; nerve root, spinal canal, or spinal nerve injury causing ongoing pain, numbness or tingling, and weakness, which may be permanent, bladder incontinence; paralysis, and paraplegia. We also discussed the risk of anesthesia, including DVT (deep vein thrombosis) pulmonary embolus, heart attack; stroke, and . After a discussion of the risks, the patient was offered the opportunity to ask questions, and these were answered to the best of my ability. The patient willingly accepts the risks and wishes to proceed with the procedure, therefore all surgical consents were duly signed. In summary, today I made the following recommendations: 1. Schedule POV The patient voiced understanding and agrees with the above plan. He was urged to call the office with any questions or concerns. During this visit, the time spent included the following: Examining the patient Chart review in preparation for the visit Documenting in the patient record Reviewing Labs & Radiology Melvin Law PA-C documented in this encounter Plan of Treatment Upcoming Encounters Date Type Department Care Team (Late st Contact Info) Description 06/21/2024 11:15 AM EDT Hospital Encounter [facility] Perioperative Surgical Services [address] [place] [phone] Kenny Dennis MD 35 [facility] [address] [place] [address] 06/21/2024 11:15 AM EDT - 06/21/2024 2:30 PM EDT Surgery [facility] Perioperative Surgical Services [address] [place] [address] Kenny Dennis MD 35 [facility] [address] [place] [address] FIXATION SACRO ILLIAC JOINT-LEFT 07/05/2024 11:00 AM EDT Office Visit [facility] Neurosurgery [address] [phone] Cele Jean PA-C [address] [address] 09/27/2024 2:30 PM EDT Office Visit [facility] Neurosurgery [address] [phone] Cele Jean PA-C [address] [address] Scheduled Procedures Name Priority Associated Diagnoses Date/Ti me FIXATION SACRO ILLIAC JOINT Sacroiliac joint dysfunction 06/21/2024 11:15 AM EDT documented as of this encounter Visit Diagnoses Diagnosis Sacroiliac joint dysfunction of right side- Primary S/P fusion of sacroiliac joint Sacroiliac joint dysfunction Nonallopathic lesion of sacral region, not elsewhere classified documented in this encounter Care Teams Supervisor [employer] Relationship Specialty Start Date End Date Kamilah Kincaid MD [address] [place] [address] PCP - General Internal Medicine 03/05/22 Nathan Duvall MD [address] [place] [address] Physician Psychiatry, General 03/05/22 Man Fragoso MD [address] [address] Internal Medicine 04/12/24 Marquis Luo, RN 35 [place] [address] Nurse Navigator Surgery, Neurosurgery 06/03/24 documented as of this encounter
--- OUTSIDE RECORDS SUMMARY | 2024-06-08 19:01 | XMS_ITS | Data Portability ---
Author Organization [place] [facility], Allergy Address [address] [place] [phone] Care Team Providers Care Catering Barista Name Role Phone DANNY TOLBERT Primary Care Provider [phone] Assessment Encounter Date Assessment Date Assessment LastModified [...] do what they can with their current public transit specialist and if they are unable to get good results they could either find another audiology group that services Nabor devices or they could consider getting new technology through our audiology group. They are in agreement with this plan. [email or web address] Not available 02/18/2024 17:59:01 Plan of Treatment [...] Sensorineur al hearing loss of bilateral ears [id number] Active 2023 Dorcas alcaraz MA - [facility] 16:30:42 Impacted cerumen in left ear [id number] 101 Active 2023 NIRAJ HANNAH MD [address] [place] [address], [phone], [facility] - [facility] 17:59:39 Problem Notes None recorded. Procedures Surgical History Date Name Laterality Status Provider Name and Address Organization Details Recorded Time Comp Audio with Tymps (06021 & 22518) completed Dorcas Collazo MA - [facility] 02/18/2024 16:30:36 Cerumen removal with microscope left completed NIRAJ HANNAH MD [address] [place] [address], [phone], [facility] - [facility] 02/18/2024 17:57:01 Imaging Results Imaging Date [...] Updated DateTime 02/18/2024 175.26 cm 39.9 kg/m2 407646.94 g Jazmin Benjamin MA - [facility] 02/18/2024 15:56:04 Social History None recorded. Functional Status None recorded. Mental Status None recorded. Family History Nothing Reported. Medical History Condition Response Diabetes Y Hyperlipidemia Y Hypertension Y Past Encounters Encounter ID Performer Location Encounter Start Date Encounter Closed Date Diagnosis/Indication Diagnosis SNOMED-CT Code Diagnosis ICD10 Code Diagnosis Note [id number] NIRAJ HANNAH MD [facility] [address] [phone] 02/18/2024 15:32:56 02/19/2024 07:45:49 Sensorineural hearing loss of bilateral ears 404952347 H90.3 Audiologic al evaluation results: Right ear: [...] seal}} Impacted c erumen in left ear [id number] 523901 H61.22 Health Concerns Section Related Observation LastModified by Organization Detai ls LastModified Time None Recorded Concern Status LastModified by Organization Details LastModified Time None Recorded Advance Directives Directive None Recorded Payers Encounter Date Sequence Insurance Name Policy Number Policy Flores Covered Member ID Flores Member ID Guarantor Name 02/18/2024 1 [facility] - DOS ON OR AFTER 2022 - RETIREMENT OPTIONS AND ONE CARE (MEDICARE REPLACEMENT/ADV ANTAGE - PPO) Arnol Rhodes [id number] Arnol Rhodes Notes Date Note Type Note [...] of BTE Nabor hearing aids from a watch parts inspector in [facility]. He has been very unhappy with the amplification results. He has been back for 1 attempt at reprogramming without much success. He is frustrated by the continued problems with hearing. NIRAJ HANNAH MD [address] [place] [address], [place], [phone], [facility] - [facility] 02/18/2024 17:59:58
--- OUTSIDE RECORDS SUMMARY | 2024-06-08 19:01 | XMS_ITS | Encounter Summary ---
Author Organization [facility] Address [address] [place] [address] Care Team Providers Care Pocket Maker Name Role Phone Kamilah Kincaid MD Primary Care Provide r Nathan Duvall MD Unavailable [phone] Man Fragoso MD Unavailable [phone] Marquis Luo RN Unavailable Encounter Details Date Type Department Care Team (Paulette Contact Info) Description 03/16/2023 Scanned Document [facility] Neurosurgery [address] [phone] Social History Tobacco Use Types [...] 06/21/2024 11:15 AM EDT Hospital Encounter [facility] Perioperative Surgical Services 80 [facility] [place] [address] Kenny Dennis MD 35 [facility] 5 [place] [address] 06/21/2024 11:15 AM EDT - 06/21/2024 2:30 PM EDT Surgery [facility] Perioperative Surgical Services 80 [facility] [place] [address] Kenny Dennis MD 35 [facility] 5 [place], [place] [phone] FIXATION SACRO ILLIAC JOINT-LEFT 07/05/2024 11:00 AM EDT Office Visit [facility] Neurosurgery [address] [place] [phone] Cele Jean PA-C 35 [facility] 5 [place], [place] [phone] 09/27/2024 2:30 PM EDT Office Visit [facility] Neurosurgery [address] [phone] Cele Jean PA-C [address] [place] [address] Scheduled Procedures Name Priority Associated Diagnoses Date/Ti me FIXATION SACRO ILLIAC JOINT Sacroiliac joint dysfunction 06/21/2024 11:15 AM EDT documented as of this encounter Visit Diagnoses Not on filedocumented in this encounter Care Teams Pocket Maker Relationship Specialty Start Date End Date Kamilah Kincaid MD [address] [place] [address] PCP - General Internal Medicine 03/05/22 Nathan Duvall MD [address] [place] [address] Physician Psychiatry, General 03/05/22 Man Fragoso MD [address] [address] Internal Medicine 04/12/24 Marquis Luo, RN 35 [place] [address] Nurse Navigator Surgery, Neurosurgery 06/03/24 documented as of this encounter
--- OUTSIDE RECORDS SUMMARY | 2024-06-08 19:01 | XMS_ITS | Encounter Summary ---
Author Organization [employer] Address 75 [facility] 7t [place] [address] Care Team Providers Care Uniformer Name Role Phone Kamilah Kincaid MD Primary Care Provide r Reason for Visit * Reason Onset Date Comments Paperwork/Forms 07/07/2022 Encounter Details Date Type Department Care Team ([facility] st Contact Info) Description 07/07/2022 Telephone [facility] MEDICINE [address] [place] [address] Kamilah Kincaid MD [address] [place] [address] Paperwork/Forms Social History Tobacco Use Types Packs/Day [...] never fax over for his appt with [facility] today. Please contact pt at [phone] documented in this encounter Plan of Treatment Upcoming Encounters Date Type Department Care Team (Late st Contact Info) Description 09/07/2024 2:00 PM EDT Telemedicine [facility] MEDICINE [address] [place] [address] Kamilah Kincaid MD [address] [place] [address] documented as of this encounter Visit Diagnoses Not on filedocumented in this encounter Care Teams Uniformer Relationship Specialty Start Date End Date Kamilah Kincaid MD [address] [place] [address] PCP - General Family Medicine 12/23/17 documented as of this encounter
--- OUTSIDE RECORDS SUMMARY | 2024-06-08 19:01 | XMS_ITS | Encounter Summary ---
Author Organization [facility] Address [address] [place] [address] Care Team Providers Care City Collector Name Role Phone Kamilah Kincaid MD Primary Care Provide r Nathan Duvall MD Unavailable [phone] Man Fragoso MD Unavailable [phone] Marquis Luo RN Unavailable Encounter Details Date Type Department Care Team (Late st Contact Info) Description 06/20/2022 Scanned Document [facility] Neurosurgery [address] [place] [phone] Neurosurgery, Scan Social History Tobacco Use [...] Description 06/21/2024 11:15 AM EDT Hospital Encounter [facility] Perioperative Surgical Services [address] [place] [address] Kenny Dennis MD 35 [facility] [address] [place] [address] 06/21/2024 11:15 AM EDT - 06/21/2024 2:30 PM EDT Surgery [facility] Perioperative Surgical Services [address] [place] [address] Kenny Dennis MD 35 [facility] [address] [place] [address] FIXATION SACRO ILLIAC JOINT-LEFT 07/05/2024 11:00 AM EDT Office Visit [facility] Neurosurgery [address] [place] [address] Cele Jean PA-C 35 [facility] 5 [place] [address] 09/27/2024 2:30 PM EDT Office Visit [facility] Neurosurgery [address] [address] Cele Jean PA-C [address] [address] Scheduled Procedures Name Priority Associated Diagnoses Date/Ti me FIXATION SACRO ILLIAC JOINT Sacroiliac joint dysfunction 06/21/2024 11:15 AM EDT documented as of this encounter Visit Diagnoses Not on filedocumented in this encounter Care Teams City Collector Relationship Specialty Start Date End Date Kamilah Kincaid MD [address] [place] [address] PCP - General Internal Medicine 03/05/22 Nathan Duvall MD [address] [place] [address] Physician Psychiatry, General 03/05/22 Man Fragoso MD [address] [place] [address] Internal Medicine 04/12/24 Marquis Luo RN [address] [place] [address] Nurse Navigator Surgery, Neurosurgery 06/03/24 documented as of this encounter
--- OUTSIDE RECORDS SUMMARY | 2024-06-08 19:01 | XMS_ITS | Encounter Summary ---
Author Organization [facility] Address [address] [place] [address] Care Team Providers Care Manager Engagement Name Role Phone Kamilah Kincaid MD Primary Care Provide r Nathan Duvall MD Unavailable [phone] Man Fragoso MD Unavailable Marquis Luo RN Unavailable Encounter Details Date Type Department Care Team ([facility] st Contact Info) Description 03/14/2024 Scanned Document [facility] Neurosurgery [address] [phone] Rocky Mcgovern MA [address] [place] [address] Social History Tobacco Use Types Packs/Day Years [...] Description 06/21/2024 11:15 AM EDT Hospital Encounter [facility] Perioperative Surgical Services [address] [place] [address], [place] [phone] Kenny Dennis MD 35 [facility] [address] [place] [address] 06/21/2024 11:15 AM EDT - 06/21/2024 2:30 PM EDT Surgery [facility] Perioperative Surgical Services [address] [place] [address], [place] [address] Kenny Dennis MD 35 [facility] [address] [place] [address] FIXATION SACRO ILLIAC JOINT-LEFT 07/05/2024 11:00 AM EDT Office Visit [facility] Neurosurgery [address] 5 [place] [address] Cele Jean PA-C 35 [facility] [address] [place] [address] 09/27/2024 2:30 PM EDT Office Visit [facility] Neurosurgery [address] [place] [address] Cele Jean PA-C 35 [facility] [address] [place] [address] Scheduled Procedures Name Priority Associated Diagnoses Date/Ti me FIXATION SACRO ILLIAC JOINT Sacroiliac joint dysfunction 06/21/2024 11:15 AM EDT documented as of this encounter Visit Diagnoses Not on filedocumented in this encounter Care Teams Manager Engagement Relationship Specialty Start Date End Date Barciona Gtz, Melanie, MD [address] [place] [address] PCP - General Internal Medicine 03/05/22 Nathan Duvall MD [address] [place] [address] Physician Psychiatry, General 03/05/22 Man Fragoso MD [address] [place] [address] Internal Medicine 04/12/24 Marquis Luo, RN [address] [place] [address] Nurse Navigator Surgery, Neurosurgery 06/03/24 documented as of this encounter
--- OUTSIDE RECORDS SUMMARY | 2024-06-08 19:01 | XMS_ITS | Encounter Summary ---
Author Organization [employer] Address [address] [facility] [address] [place] [address] Care Team Providers Care Pantograph Machine Operator Name Role Phone Kamilah Kincaid MD Primary Care Provide r Encounter Details Date Type Department Care Team (Latest Contact Info) Description 06/08/2024 2:15 PM EST Office Visit [facility] [address] [place] [address] Kamilah Kincaid MD [address] [place] [address] Preop cardiovascular exam (Primary Dx); Type 2 diabetes mellitus with hyperglycemia, with long-term current use of insulin ([facility]); Primary hypertension Social History Tobacco Use Types Packs/Day Years [...] 16 06/08/2024 2:31 PM EST Oxygen Saturation - - Inhaled Oxygen Concentration - - Weight 128 kg (283 lb) 06/08/2024 2:31 PM EST Height 175.3 cm (5' 9 ) 06/08/2024 2:31 PM EST Body Mass Index 41.79 06/08/2024 2:31 PM EST documented in this encounter Progress Notes * Kamilah Gtz MD - 06/08/2024 2:15 PM EST SUBJECTIVE: Arnol Rhodes is a 78 y.o. year old male who presents for Pre Op for Left sacroiliac joint fixation Arnol is here today for pre-operative evaluation. Reports no sx of CP, SOB, LAZAR, at rest or with exertion. No paroxsysmal nocturnal orthopnea, LE swelling or palpitations. No recent anticoagulant use, personal h/o coagulopathy. No allergies to iodine, latex or tape. Patient does report he is mainly sedentary, he can stand up for a few minutes and reports he has a lot of pain on his lower backs and hips that does not let him ambulate Acute Concerns: Dizziness (vertigo) symptoms: Patient reports he feels dizzy every time he rolls over in bed, he reports symptoms went away and that he will be monitoring and let me know if they come back Constipation is better Patient is interested to lower his insulin doses and start GLP1 Social History Social History Narrative Not on file Patient Active Problem List Diagnosis Chronic low back pain Disorder of sacrum Erectile dysfunction Hypertension Severe obesity (BMI 35.0-39.9) with comorbidity (CMS/HCC) Polyp of colon History of MT (myocardial infarction) Diabetes mellitus ([facility]) Pre-operative exam Excessive ear wax, bilateral Clogged ear, left Preop cardiovascular exam No family history on file. Review of Systems Constitutional: Negative. HENT: Negative. Respiratory: Negative. Cardiovascular: Negative. Musculoskeletal: Positive for arthralgias and back pain. OBJECTIVE: Vitals: 06/08/24 1431 BP: 133/75 BP Location: Left arm Patient Position: Sitting BP Cuff Size: Large adult Pulse: 96 Resp: 16 Temp: 97.7 ??F (36.5 ??C) TempSrc: Oral Weight: 283 lb (128 kg) Height: 5' 9 (1.753 m) Physical Exam Constitutional: Appearance: Normal appearance. Cardiovascular: Rate and Rhythm: Normal rate and regular rhythm. Pulmonary: Effort: Pulmonary effort is normal. Breath sounds: Normal breath sounds. Abdominal: General: Abdomen is flat. Palpations: Abdomen is soft. Musculoskeletal: Right lower leg: No edema. Left lower leg: No edema. Neurological: Mental Status: He is alert. Follow Up: Follow up in about 3 months (around 09/05/2024) for televisit. Current Outpatient Medications on File Prior to Visit Medication Sig Dispense Refill acetaminophen (Tylenol 8 Hour) 650 MG ER tablet Take 650 mg by mouth as needed. aspirin 81 MG EC tablet Take 81 mg by mouth. BinaxNOW COVID-19 Ag Home Test kit TEST DIRECTED TODAY bisacodyl (Dulcolax) 5 MG EC tablet take 2 tablet by oral route every day Blood Glucose Monitoring Suppl (FreeStyle Lite) device Inject under the skin 2 times daily. Use to monitor blood glucose twice daily 1 each 0 finasteride (Proscar) 5 MG tablet Take 5 mg by mouth daily. FREESTYLE LITE test strip TEST BLOOD SUGAR TWICE DAILY BEFORE MEALS 50 strip 11 glucose 4 g chewable tablet Chew 4 tablets (16 g) if needed for low blood sugar. 50 tablet 12 insulin NPH-insulin regular (HumuLIN 70/30) (70-30) 100 UNIT/ML injection ADMINISTER 65 UNITS SUBCUTANEOUSLY TWICE DAILY WITH BREAKFAST AND WITH DINNER 40 mL 1 insulin syringe-needle U-100 (BD Insulin Syringe U/F) 31G X 5/16 1 mL misc Use twice a day as instructed 100 each 12 Lidocaine 4 % patch use one daily lisinopril 10 MG tablet TAKE 1 TABLET(10 MG) BY MOUTH EVERY DAY IN THE MORNING 90 tablet 1 metFORMIN (Glucophage) 500 MG tablet TAKE 1 TABLET BY MOUTH EVERY MORNING AND 2 TABLETS EVERY EVENING 270 tablet 1 naproxen (Naprosyn) 500 MG tablet TAKE 1 TABLET BY MOUTH TWICE DAILY NEEDED FOR PAIN 180 tablet 0 nitroglycerin (Nitrostat) 0.[address] 1 TABLET (0.4MG) BY SUNLINGUAL ROUTE AT 1ST SIGN OF ATTACK; MAY REPEAT EVERY 5 MINUTES UNTIL RELIEF; IF PAIN PERSISTS AFTER 3 TABLETS IN 15 MINUTES, PROMPT MEDICAL ATTENTION IS RECOMMENDED. 25 tablet 1 NovoLIN 70/30 (70-30) 100 UNIT/ML injection ADMINISTER 65 UNITS UNDER THE SKIN TWICE DAILY WITH BREAKFAST AND WITH DINNER 40 mL 1 rosuvastatin (Crestor) 40 MG tablet Take 40 mg by mouth in the morning. No current facility-administered medications on file prior to visit. Problem List Items Addressed This Visit Diabetes mellitus ([facility]) Diabetes is: controlled - Lab Results Component [...] current medications - Follow up: 3 months Relevant Medications semaglutide (Ozempic) 2 MG/1.5ML solution pen-injector Other Relevant Orders POCT Glucose (Completed) POCT HGB A1C (Completed) Lipid Panel, Standard (Completed) Albumin, Random Urine W/Creatinine Preop cardiovascular exam - Primary RCRI score is 0 which means at 3.9% risk Surgery should proceed as scheduled Patient should be n.p.o. before the procedure Insulin dose should be reduced at least to half of the dose before the procedure Patient should take his blood pressure medication the day of the procedure with a small sip of water Relevant Orders CBC auto differential (Completed) Basic Metabolic Panel (Completed) Prothrombin Time-INR (Completed) Partial Thromboplastin Time, Activated (APTT) (Completed) Hypertension I advised: - low-sodium diet (goal: <2g/day) and heart healthy diet such as DASH to reduce BP and prevent ASCVD. - Home BP monitoring 1-2 x day with goal of <140/90. - Seek immediate medical attention for chest pain, palpitations, SOB, syncope, or sudden changes inmental status. - Do not change or discontinue current prescriptions without first consulting health care provider documented in this encounter Miscellaneous Notes * Assessment & Plan Note - Kamilah Gtz MD - 06/08/2024 4:47 PM EST Associated Problem(s): Preop cardiovascular exam RCRI score is 0 which means at 3.9% risk Surgery should proceed as scheduled Patient should be n.p.o. before the procedure Insulin dose should be reduced at least to half of the dose before the procedure Patient should take his blood pressure medication the day of the procedure with a small sip of water * Assessment & Plan Note - Kamilah Gtz MD - 06/08/2024 4:46 PM EST Associated Problem(s): Diabetes mellitus ([facility]) Diabetes is: controlled - Lab Results Component [...] current medications - Follow up: 3 months * Assessment & Plan Note - Kamilah Gtz MD - 06/08/2024 4:44 PM EST Associated Problem(s): Hypertension I advised: - low-sodium diet (goal: <2g/day) and heart healthy diet such as DASH to reduce BP and prevent ASCVD. - Home BP monitoring 1-2 x day with goal of <140/90. - Seek immediate medical attention for chest pain, palpitations, SOB, syncope, or sudden changes inmental status. - Do not change or discontinue current prescriptions without first consulting health care provider documented in this encounter Plan of Treatment Upcoming Encounters Date Type Department Care Team (Late st Contact Info) Description 09/07/2024 2:00 PM EDT Telemedicine [facility] [address] [place] [phone] Kamilah Kincaid MD [address] [place] [address] documented as of this encounter Procedures Procedure Name Priority Date/Time Associated Diagnosis Comments ALBUMIN, RANDOM URINE W/CREATININE Routine 06/08/2024 3:31 PM EST Type 2 diabetes mellitus with hyperglycemia, with long-term current use of insulin ([facility]) CBC WITH AUTO DIFFERENTIAL Routine 06/08/2024 3:31 PM EST Preop cardiovascular exam APTT Routine 06/08/2024 3:31 PM EST Preop cardiovascular exam PROTHROMBIN TIME-INR Routine 06/08/2024 3:31 PM EST Preop cardiovascular exam LIPID PANEL, STANDARD Routine 06/08/2024 3:31 PM EST Type 2 diabetes mellitus with hyperglycemia, with long-term current use of insulin ([facility]) BASIC METABOLIC PANEL Routine 06/08/2024 3:31 PM EST Preop cardiovascular exam POCT GLYCATED HEMOGLOBIN, TOTAL Routine 06/08/2024 2:36 PM EST Type 2 diabetes mellitus with hyperglycemia, with long-term current use of insulin ([facility]) POCT GLUCOSE Routine 06/08/2024 2:35 PM EST Type 2 diabetes mellitus with hyperglycemia, with long-term current use of insulin ([facility]) documented in this encounter Results * Albumin, Random Urine W/Creatinine (06/08/2024 3:31 PM EST) Creatinine, Urine 188.70 mg/dL [facility] Microalbumin Urine 17.0 mg/L [facility] Microalbum Creatinine Ratio Ur 9.0 <30 ug/mg cr [facility] Comment:Albumin/Creatinine R atio Reference Ranges: Normal: < 30 ug/mg creatinine Microalbuminuria: 30 - 300 ug/mg creatinineClinical Albuminuria: > 300 ug/mg creatinine Urine (Urine, Random) 06/08/2024 3:31 PM EST 06/08/2024 4:20 PM EST us Kamilah Gtz MD LAB URINE ORDERABLES Final Result [facility] [address] [place] [phone] * (ABNORMAL) Lipid Panel, Standard (06/08/2024 3:31 PM EST) Triglycerides 152(H) <150 mg/dL [facility] Comment:Desirable Triglyceri de: less than 150 mg/dLBorderline High Triglyceride 150-199 mg/dLHigh Triglyceride: 200-499 mg/dLVery High Triglyceride: greater than or equal to 5OO mg/dL Cholesterol 125 <200 mg/dL [facility] Comment:Desirable Cholestero l: less than 200 mg/dLBorderline High Cholesterol: 200-239 mg/dLHigh Cholesterol: greater than 239 mg/dL LDL Cholesterol Calculated 55 <100 mg/dL [facility] Comment:Desirable LDL: less than 100 mg/dLNear Optimal/Above Optimal LDL: 110- 129 mg/dLBorderline High LDL: 130-159 mg/dLHigh LDL: 160-189 mg/dLVery High LDL: greater than or equal to 190 mg/dL HDL Cholesterol 40(L) >40 mg/dL [facility] Comment:Desirable HDL: great er than 40 mg/dL Note: This HDL assay may give artificially low results in patients with liver disease. Blood Venous blood specimen / Unknown 06/08/2024 3:31 PM EST 06/08/2024 4:15 PM EST us Kamilah Gtz MD LAB BLOOD ORDERABLES Final Result Performing Organization Address [facility]/ZIP Co de Phone Number [facility] [address] [place] [phone] * Partial Thromboplastin Time, Activated (APTT) (06/08/2024 3:31 PM EST) Partial Thromboplastin Time 28.9 26.0 - 36.8 SEC [facility] Comment:For information rega rding the monitoring of direct thrombininhibitors, please refer to Pharmacy. Blood Venous blood specimen / Unknown 06/08/2024 3:31 PM EST 06/08/2024 4:15 PM EST us Kamilah Gtz MD LAB BLOOD ORDERABLES Final Result Performing Organization Address [facility] Co de Phone Number [facility] [address] [place] [phone] * (ABNORMAL) Prothrombin Time-INR (06/08/2024 3:31 PM EST) Prothrombin Time 10.7(L) 10.9 - 12.4 SEC [facility] INTERNATIONAL NORM RATIO 0.9 0.9 - 1.1 [facility] Comment:INTERNATIONAL NORMAL IZED RATIO (INR) REFERENCE [...] Gtz MD LAB BLOOD ORDERABLES Final Result [facility] [address] [place] [phone] * (ABNORMAL) Basic Metabolic Panel (06/08/2024 3:31 PM EST) Sodium 142 135 - 145 mmol/L [facility] Potassium 4.4 3.3 - 5.1 mmol/L [facility] Chloride 113(H) 96 - 108 mmol/L [facility] Carbon Dioxide 22 22 - 29 mmol/L [facility] Anion Gap 11(L) 12 - 20 [facility] Urea Nitrogen (BUN) 23(H) 9 - 16 mg/dL [facility] Creatinine, Serum 0.81 0.5 - 1.4 mg/dL [facility] Estimated Glomerular Filt Rate >60 [facility] Comment:Chronic Kidney Disea se: Estimated GFR < 60 mL/min/1.34b0Eavalk Kidney Disease: Estimated GFR < 15 mL/min/1.73m2 Glucose 65 60 - 115 mg/dL [facility] Calcium 9.3 8.4 - 10.2 mg/dL [facility] Blood Venous blood specimen / Unknown 06/08/2024 3:31 PM EST 06/08/2024 4:15 PM EST Kamilah Gtz MD LAB BLOOD ORDERABLES Final Result [facility] [address] [place] [phone] * (ABNORMAL) CBC auto differential (06/08/2024 3:31 PM EST) White Blood Count 10.5 4.8 - 10.8 X10*3/uL [facility] Red Blood Count 5.14 4.60 - 5.80 X10*6/uL [facility] Hemoglobin 15.8 14.0 - 18.0 g/dl [facility] Hematocrit 47.2 42.0 - 52.0 % [facility] Mean Corpuscular Volume 91.8 80.0 - 98.0 fL [facility] Mean Corpuscular Hemoglobin 30.7 27.0 - 33.0 pg [facility] Mean Corpuscular HGB Conc 33.5 31.0 - 36.0 g/dl [facility] Red Cell Distribution Width 13.2 11.0 - 16.0 % [facility] Platelet Count 259 160 - 400 X10*3/uL [facility] Mean Platelet Volume 9.8 9.4 - 12.4 fL [facility] Neutrophils Percent Auto 72.6 45 - 73 % [facility] Imm Gran Pct Auto 0.4 0.0 - 0.4 % [facility] Lymphocytes Percent Auto 16.5(L) 20 - 40 % [facility] Monocytes Percent Auto 8.5 2 - 11 % [facility] Eosinophils Percent Auto 1.5 0 - 4 % [facility] Basophils Percent Auto 0.5 0 - 2 % [facility] NRBC Pct Auto 0.0 0.0 - 0.2 /100WBC [facility] Neutrophils Absolute Auto 7.6 2.0 - 8.3 x10*3/uL [facility] Imm Gran Abs Auto 0.04(H) 0.00 - 0.03 X10*3/uL [facility] Lymphocytes Absolute Auto 1.7 1.2 - 4.9 X10*3/uL [facility] Monocytes Absolute Auto 0.9 0.1 - 1.2 X10*3/uL [facility] Eosinophils Absolute Auto 0.2 0.0 - 0.4 X10*3/uL [facility] Basophils Absolute Auto 0.1 0.0 - 0.2 X10*3/uL [facility] NRBC Abs Auto 0.000 0.0 - 0.012 X10*3/uL [facility] Blood Venous blood specimen / Unknown 06/08/2024 3:31 PM EST 06/08/2024 4:15 PM EST Kamilah Gtz MD LAB BLOOD ORDERABLES Final Result Performing Organization Address City/State/[facility] Co de Phone Number [facility] [address] [place] [phone] * (ABNORMAL) POCT HGB A1C (06/08/2024 2:36 PM EST) Hemoglobin A1C 6.2(A) 4.0 - 6.0 % QC Media Lot # [id number] Lot# Expiration Date Blood 06/08/2024 2:36 PM EST Kamilah Gtz MD POINT OF CARE TEST ENTER/EDIT ORDERABLES Edited Result - Final * POCT Glucose (06/08/2024 2:35 PM EST) Glucose Blood, POC 80 60 - 200 mg/dL [employer] Media Lot # [id number] Lot# Expiration Date [id number] Blood Capillary blood specimen / Unknown 06/08/2024 2:35 PM EST Result Sharmila Gtz MD POINT OF CARE TEST EN TER/EDIT ORDERABLES Final Result documented in this encounter Visit Diagnoses Diagnosis Preop cardiovascular exam- Primary Pre-operative cardiovascular examination Type 2 diabetes mellitus with hyperglycemia, with long-term current use of insulin ([facility]) Primary hypertension Unspecified essential hypertension documented in this encounter Care Teams Pantograph Machine Operator Relationship Specialty Start Date End Date Kamilah Kincaid MD [address] [place] [phone] PCP - General Family Medicine 12/23/17 documented as of this encounter
--- OUTSIDE RECORDS SUMMARY | 2024-06-08 19:01 | XMS_ITS | Encounter Summary ---
Author Organization [employer] Address [address] [facility] [address] [place] [address] Care Team Providers Care Mobile Home Set Up Person Name Role Phone Kamilah Kincaid MD Primary Care Provide r Reason for Visit * Reason Onset Date Comments PRE-OP 05/03/2024 Encounter Details Date Type Department Care Team ([facility] st Contact Info) Description 05/03/2024 Telephone [facility] [address] [place] [phone] Kamilah Kincaid MD [address] [place] [phone] PRE-OP Social History Tobacco Use Types Packs/Day [...] No Surgeon's name: Kenny Dennis Facility name: [facility] Surgeon's office number: Surgeon's office fax number: [phone] Contact name (person you spoke with): Serge Last office note from surgeon requested: Yes documented in this encounter Plan of Treatment Upcoming Encounters Date Type Department Care Team (Late st Contact Info) Description 09/07/2024 2:00 PM EDT Telemedicine [facility] [address] [place], [place] [phone] Kamilah Kincaid MD [address] [place] [phone] documented as of this encounter Visit Diagnoses Not on filedocumented in this encounter Care Teams Mobile Home Set Up Person Relationship Specialty Start Date End Date Kamilah Kincaid MD [address] [place] [address] PCP - General Family Medicine 12/23/17 documented as of this encounter
--- OUTSIDE RECORDS SUMMARY | 2024-06-08 19:01 | XMS_ITS | Clinical Summary ---
Author Organization [facility] Address [address] [place] [address] Care Team Providers Care Crabber Name Role Phone Kamilah Kincaid MD Primary Care Provide r Nathan Duvall MD Unavailable [phone] Man Fragoso MD Unavailable [phone] Marquis Luo RN Unavailable Allergies No known active allergies Medications Medication Sig Dispensed Refills Start Date End Date Status NovoLIN 70/30 (70-30) 100 UNIT/ML injection 1 mL (100 Units total) every morning before breakfast. Took [...] 4 tablets (16 g total). 05/11/2022 Active Continuous Blood Gluc Sensor (FreeStyle Cb 2 Sensor) Misc Use per package instructions 05/11/2022 Active Continuous Blood Gluc Caustic Loader (FreeStyle Cb 2 [place]) Device Use per package instruction 05/11/2022 Active acetaminophen (TYLENOL) 650 MG CR tablet Take 1 tablet (650 mg total) by mouth 3 times daily (every 8 hours) as needed. 08/20/2021 Active finasteride (PROSCAR) 5 MG tablet Take 1 tablet (5 mg total) by mouth nightly. 4 NIGHTS A WEEK Active rosuvastatin (CRESTOR) 40 MG tablet Take 1 tablet (40 mg total) by mouth nightly. Active melatonin 3 MG Tab tablet Take 4 tablets (12 mg total) by mouth nightly. Active aspirin enteric coated (ECOTRIN LOW STRENGTH) 81 MG EC tabletIndications :Sacroiliac instability Take 1 tablet (81 mg total) by mouth daily. Do not start before January 24, 2023. 1 tablet 01/24/2023 Active senna-docusate (SENNA-S) 8.6-50 MGIndications:Sac roiliac instability Take 2 tablets by mouth nightly. 60 tablet 01/15/2023 Active Additional Information Patient taking differently: 1 tabletOral Nightly, Reason: Other, Informant: Self, Reported on 06/06/2024 Insulin Syringe-Needle U-100 (INSULIN SYRINGE 1CC/31GX5/16 ) 31G X 5/16 1 ML Misc 2 times a day. as directed 02/18/2024 Active naproxen (NAPROSYN) 500 MG tablet Take 1 tablet (500 mg total) by mouth as needed. Active nitroglycerin (NITROSTAT) 0.[address] 1 tablet (0.4 mg total) under the tongue every 5 (five) minutes as needed. 05/05/2024 Active COVID-19 At Home Antigen Test ([facility] COVID-19 Ag Home Test) Kit TEST DIRECTED TODAY 10/23/2021 5 Discontinue d(Therapy completed) FINASTERIDE PO Take 5 mg by mouth 4 (four) times a week. Thursday,Thursday,Thu and Thursday in am 3 Discontinue d(Patient Discharge) oxyCODONE (ROXICODONE) 5 MG immediate release tabletIndications :Sacroiliac instability Take 1 tablet (5 mg total) by mouth every 4 (four) hours as needed for severe pain or moderate pain. 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); S/P fusion of sacroiliac joint 06/03/[address] [address] Marquis Luo RN 06/03/2024 Travel 05/20/2024 Telephone [facility] Neurosurgery [address] [address] Kenny Dennis MD 05/03/2024 Scanned Document [address] [address] Kenny Dennis MD 05/03/2024 Scanned Document [address] [address] Kenny Dennis MD 04/25/[address] [address] Kenny Dennis MD 04/21/2024 Telephone [facility] Neurosurgery [address] [place] [address] Kenny Dennis MD 04/18/2024 Orders Only [facility] Neurosurgery [address] [place] [address] Kenny Dennis MD 04/12/2024 2:30 PM EST Ancillary Procedure [facility] Radiology [address] [place] [address] Provider, File Room 04/12/2024 Telephone [facility] Neurosurgery [address] [place] [address] Kenny Dennis MD Advice Only 04/12/2024 Orders Only [facility] Neurosurgery [address] [place] [address] ProviderCooper MD 03/21/2024 Telephone [facility] Neurosurgery [address] [place] [address] Rocky Mcgovern MA Advice Only 03/18/2024 Scanned Document [facility] Neurosurgery [address] [place] [address] Neurosurgery, Scan 03/14/2024 Scanned Document [facility] Neurosurgery [address] [place] [address] Rocky Mcgovern MA 03/14/2024 Telephone [facility] Neurosurgery [address] [place] [address] Rocky Mcgovern MA Advice Only 03/14/2024 Scanned Document [facility] Neurosurgery [address] [place] [address] Rocky Mcgovern MA from Last 3 Months Social History Tobacco Use Types Packs/Day Years Used Date Smoking Tobacco: Former Cigarettes Q uit: 2012 Smokeless Tobacco: Never Tobacco Cessation:Counseling Given: Not Answered Alcohol Use Standard Drinks/Week Comments Never 0 (1 standard drink = 0.6 oz pur e alcohol) AUDIT-C Answer Date Recorded Q1: How often do you have a drink containing alcohol? Never 06/06/2024 Q2: How many drinks containi ng alcohol do you have on a typical day when you are drinking? Patient does not drink Q3: How often do you have si x or more drinks on one occasion? Never 06/06/2024 PHQ-2 Answer Date Recorded PHQ-2 Total Score 0 01/14/2023 Sex and Gender Information Value Date Recorded Sex Assigned at Male 11/27/2022 9:30 AM EDT Gender Identity Male 11/27/2022 9:30 AM EDT Sexual Orientation Heterosexual (straight) 11/27 9:30 AM EDT Last Filed Vital Signs Vital Sign Reading Time Taken Comments Blood Pressure 134/70 06/03/2024 1:14 PM EST Pulse 94 06/03/2024 1:14 PM EST Temperature 36.5 ??C (97.7 ??F) 01/15/2023 10:00 AM E DT Respiratory Rate 17 01/15/2023 10:00 AM EDT Oxygen Saturation 92% 06/03/2024 1:14 PM EST Inhaled Oxygen Concentration - - Weight 127 kg (280 lb) 06/06/2024 10:20 AM EST Height 175.3 cm (5' 9 ) 06/06/2024 10:20 AM EST Body Mass Index 41.35 06/06/2024 10:20 AM EST Plan of Treatment Upcoming Encounters Date Type Department Care Team (Late st Contact Info) Description 06/21/2024 11:15 AM EDT Hospital Encounter [facility] Perioperative Surgical Services [address] [place] [address] Kenny Dennis MD [address] [place] [address] 06/21/2024 11:15 AM EDT - 06/21/2024 2:30 PM EDT Surgery [facility] Perioperative Surgical Services [address] [place] [address] Kenny Dennis MD 35 [facility] [address] [place] [address] FIXATION SACRO ILLIAC JOINT-LEFT 07/05/2024 11:00 AM EDT Office Visit [facility] Neurosurgery [address] [place] [address] Cele Jean PA-C [address] [facility] 5 [place] [address] 09/27/2024 2:30 PM EDT Office Visit [facility] Neurosurgery [address] 5 [place] [address] Cele Jean PA-C [address] [address] Scheduled Procedures Name Priority Associated Diagnoses Date/Ti [...] Additional history exists COVID-19 Vaccine (2 - 2023- season) 2023 06/27/2020 Hepatitis B Vaccines Aged Out No long er eligible based on patient's age to complete this topic Medical Devices Implanted Type Area Glass Vial Filler Device Identifier Shelf Expiration Date Model / Serial / Lot [id number]-90 System Spinal Fixation 55mm 7mm Ifuse Implant Sys 3ang - [id number] Implanted:Qty: 1 on 01/14/2023 by Kenny Dennis MD at [facility] Spine Right: Sacrum [employer] 06/14/2027 [id number]-90 / / [id number] Ifuse- Torq Implanted:Qty: 1 on 01/14/2023 by Kenny Dennis MD at [facility] Right: Sacrum [employer] [id number] / / Ifuse- Torq Implanted:Qty: 1 on 01/14/2023 by Kenny Dennis MD at [facility] Right: Sacrum [employer] [id number] / / Procedures Procedure Name Priority Date/Time Associated Diagnosis Comments CT PELVIS W/O CONTRAST Routine 04/12/2024 4:[address] PELVIS W W/O CONTRAST Routine 04/12/2024 4:[address] PELVIS W/O CONTRAST Routine 04/12/2024 4:08 PM EST OBI ARCHIVE FOR REFERENCE ONLY CT Routine 04/12/2024 2:30 PM EST HEMOGLOBIN A1C WITH ESTIMATED AVERAGE GLUCOSE [...] result. File Room Provider IMG DIGITIZE FILMS ELVA [phone] * Hemoglobin A1c with Estimated Average Glucose (01/15/2023 5:46 AM EDT) Hemoglobin A1C 5.5 <5.7 % 01/15/2023 7:19 AM EDT [facility] Comment: A1c% ? Interpretation 5.7 - 6.0 ?Increase risk of diabetes 6.1 - 6.4 ?Higher risk of diabetes > or = 6.5 ?? Consistent with diabetes Diabetes Care, 33(Supp 1):S1-S61, 2010 Estimated Average Glucose 111 mg/dL 01/15/2023 7:19 AM EDT [facility] Blood specimen (specimen) Blood specimen / Unknown 01/15/2023 5:46 AM EDT 01/15/2023 6:14 AM EDT [facility] See Below [address] [address] from Last 3 Months or Most Recently Relevant to Health Maintenance Advance Directives * Full Code (Latest Code Status on File) Date Activated Date Inactivated Comments 01/14/2023 7:54 PM * Full Code Date Activated Date Inactivated Comments 01/14/2023 11:39 AM 01/14/2023 7:54 PM Care Teams Crabber Relationship Specialty Start Date End Date Kamilah Kincaid MD [address] [place] [address] PCP - General Internal Medicine 03/05/22 Nathan Duvall MD [address] [place] [address] Physician Psychiatry, General 03/05/22 Man Fragoso MD [address] [place] [address] Internal Medicine 04/12/24 Marquis Luo, RN [address] [place] [address] Nurse Navigator Surgery, Neurosurgery 06/03/24
--- OUTSIDE RECORDS SUMMARY | 2024-06-08 19:01 | XMS_ITS | Encounter Summary ---
Author Organization [employer] Address [address] [facility] 7t [place] [address] Care Team Providers Care Belt Turner Name Role Phone Kamilah Kincaid MD Primary Care Provide r Encounter Details Date Type Department Care Team ([facility] st Contact Info) Description 06/08/2024 Telephone [facility] MEDICINE [address] [place], [place] [phone] Kamilah Kincaid MD [address] [place] [address] Social History Tobacco Use Types Packs/Day Years [...] encounter Miscellaneous Notes * Telephone Encounter - Tara Mukherjee RN - 06/08/2024 2:07 PM EST T/C to [facility] to confirm what labs the patient needs pre-op, per office pt need: CBC with Diff BMP PT/PTT INR HgB A1C documented in this encounter Plan of Treatment Upcoming Encounters Date Type Department Care Team (Late st Contact Info) Description 09/07/2024 2:00 PM EDT Telemedicine [facility] MEDICINE [address] [place], [place] [phone] Kamilah Kincaid MD [address] [place] [address] documented as of this encounter Visit Diagnoses Not on filedocumented in this encounter Care Teams Belt Turner Relationship Specialty Start Date End Date Kamilah Kincaid MD [address] [place], [place] [phone] PCP - General Family Medicine 12/23/17 documented as of this encounter
--- OUTSIDE RECORDS SUMMARY | 2024-06-08 19:01 | XMS_ITS | Encounter Summary ---
Author Organization [facility] Address [address] [place] [address] Care Team Providers Care Driver Recruiter Name Role Phone Kamilah Kincaid MD Primary Care Provide r Nathan Duvall MD Unavailable [phone] Man Fragoso MD Unavailable [phone] Marquis Lou RN Unavailable Encounter Details Date Type Department Care Team ([facility] Contact Info) Description 04/29/2023 Scanned Document [facility] Neurosurgery [address] [address] Social History Tobacco Use Types [...] Description 06/21/2024 11:15 AM EDT Hospital Encounter [facility] Perioperative Surgical Services 80 [facility] [address] Kenny Dennis MD 35 [facility] 5 [place] [address] 06/21/2024 11:15 AM EDT - 06/21/2024 2:30 PM EDT Surgery [facility] Perioperative Surgical Services 80 [facility] [place] [address] Kenny Dennis MD 35 [facility] 5 [place], [place] [address] FIXATION SACRO ILLIAC JOINT-LEFT 07/05/2024 11:00 AM EDT Office Visit [facility] Neurosurgery [address] 5 [place] [address] Cele Jean PA-C 35 [facility] 5 [place], [place] [phone] 09/27/2024 2:30 PM EDT Office Visit [facility] Neurosurgery [address] [address] Cele Jean PA-C [address] [place] [address] Scheduled Procedures Name Priority Associated Diagnoses Date/Ti me FIXATION SACRO ILLIAC JOINT Sacroiliac joint dysfunction 06/21/2024 11:15 AM EDT documented as of this encounter Visit Diagnoses Not on filedocumented in this encounter Care Teams Driver Recruiter Relationship Specialty Start Date End Date Kamilah Kincaid MD [address] [place] [address] PCP - General Internal Medicine 03/05/22 Nathan Duvall MD [address] [place] [address] Physician Psychiatry, General 03/05/22 Man Fragoso MD [address] [address] Internal Medicine 04/12/24 Marquis Luo, RN [address] [place] [address] Nurse Navigator Surgery, Neurosurgery 06/03/24 documented as of this encounter
--- OUTSIDE RECORDS SUMMARY | 2024-06-08 19:01 | XMS_ITS | Encounter Summary ---
Author Organization [facility] Address [address] [place] [address] Care Team Providers Care Tomato Grader Name Role Phone Kamilah Kincaid MD Primary Care Provide r Nathan Duvall MD Unavailable [phone] Man Fragoso MD Unavailable [phone] Marquis Luo RN Unavailable Encounter Details Date Type Department Care Team ([facility] Contact Info) Description 03/18/2024 Scanned Document [facility] Neurosurgery [address] [address] Neurosurgery, Scan Social History Tobacco Use [...] [facility] [place] [facility] 80 [place] [address] Kenny Dennis MD 35 [facility] [address] [place] [address] 06/21/2024 11:15 AM EDT - 06/21/2024 2:30 PM EDT Surgery [facility] Perioperative Surgical Services 80 [place] [address] Kenny Dennis MD 35 [facility] 5 [place], [place] [address] FIXATION SACRO ILLIAC JOINT-LEFT 07/05/2024 11:00 AM EDT Office Visit [facility] Neurosurgery [address] 5 [place] [address] Cele Jean PA-C 35 [facility] 5 [place] [address] 09/27/2024 2:30 PM EDT Office Visit [facility] Neurosurgery [address] [address] Cele Jean PA-C 35 [facility] 5 [place] [address] Scheduled Procedures Name Priority Associated Diagnoses Date/Ti me FIXATION SACRO ILLIAC JOINT Sacroiliac joint dysfunction 06/21/2024 11:15 AM EDT documented as of this encounter Visit Diagnoses Not on filedocumented in this encounter Care Teams Tomato Grader Relationship Specialty Start Date End Date Kamilah Kincaid MD [address] [place] [address] PCP - General Internal Medicine 03/05/22 Nathan Duvall MD [address] [place] [address] Physician Psychiatry, General 03/05/22 Man Fragoso MD [address] [place] [address] Internal Medicine 04/12/24 Marquis Luo, RN [address] [place] [address] Nurse Navigator Surgery, Neurosurgery 06/03/24 documented as of this encounter
--- OUTSIDE RECORDS SUMMARY | 2024-06-08 19:01 | XMS_ITS | Encounter Summary ---
Author Organization [facility] Address [address] [place] [address] Care Team Providers Care Residential Driver Name Role Phone Kamilah Kincaid MD Primary Care Provide r Nathan Duvall MD Unavailable [phone] Man Fragoso MD Unavailable [phone] Marqius Luo RN Unavailable Encounter Details Date Type Department Care Team ([facility] Contact Info) Description 04/22/2023 Scanned Document [facility] Neurosurgery [address] [address] Social History Tobacco Use Types [...] [facility] [place] [facility] 80 [place] [address] Kenny Dennis MD 35 [facility] 5 [place] [address] 06/21/2024 11:15 AM EDT - 06/21/2024 2:30 PM EDT Surgery [facility] Perioperative Surgical Services 80 [place] [address] Kenny Dennis MD 35 [facility] 5 [place], [place] [address] FIXATION SACRO ILLIAC JOINT-LEFT 07/05/2024 11:00 AM EDT Office Visit [facility] Neurosurgery [address] 5 [place] [address] Cele Jean PA-C 35 [facility] 5 [place], [place] [phone] 09/27/2024 2:30 PM EDT Office Visit [facility] Neurosurgery [address] [address] Cele Jean PA-C [address] [place] [address] Scheduled Procedures Name Priority Associated Diagnoses Date/Ti me FIXATION SACRO ILLIAC JOINT Sacroiliac joint dysfunction 06/21/2024 11:15 AM EDT documented as of this encounter Visit Diagnoses Not on filedocumented in this encounter Care Teams Residential Driver Relationship Specialty Start Date End Date Kamilah Kincaid MD [address] [place] [address] PCP - General Internal Medicine 03/05/22 Nathan Duvall MD [address] [place] [address] Physician Psychiatry, General 03/05/22 Man Fragoso MD [address] [address] Internal Medicine 04/12/24 Marquis Luo, RN [address] [place] [address] Nurse Navigator Surgery, Neurosurgery 06/03/24 documented as of this encounter
--- OUTSIDE RECORDS SUMMARY | 2024-06-08 19:01 | XMS_ITS | Encounter Summary ---
Author Organization [facility] Address [address] [place] [address] Care Team Providers Care Blanker Press Operator Name Role Phone Kamilah Kincaid MD Primary Care Provide r Nathan Duvall MD Unavailable [phone] Man Fragoso MD Unavailable [phone] Marquis Luo RN Unavailable Encounter Details Date Type Department Care Team (Late st Contact Info) Description 03/07/2024 Scanned Document [facility] Neurosurgery [address] [address] [place] [address] Social History Tobacco Use Types Packs/Day Years [...] Description 06/21/2024 11:15 AM EDT Hospital Encounter [facility] Perioperative Surgical Services [address] [place] [address], [place] [address] Kenny Dennis MD 35 [facility] [address] 5 [place] [address] 06/21/2024 11:15 AM EDT - 06/21/2024 2:30 PM EDT Surgery [facility] Perioperative Surgical Services [address] [place] [address], [place] [address] Kenny Dennis MD 35 [facility] [address] [place] [address] FIXATION SACRO ILLIAC JOINT-LEFT 07/05/2024 11:00 AM EDT Office Visit [facility] Neurosurgery [address] 5 [place] [address] Cele Jean PA-C 35 [facility] [address] [place] [address] 09/27/2024 2:30 PM EDT Office Visit [facility] Neurosurgery [address] 5 [place] [address] Cele Jean PA-C 35 [facility] [address] [place] [address] Scheduled Procedures Name Priority Associated Diagnoses Date/Ti me FIXATION SACRO ILLIAC JOINT Sacroiliac joint dysfunction 06/21/2024 11:15 AM EDT documented as of this encounter Visit Diagnoses Not on filedocumented in this encounter Care Teams Blanker Press Operator Relationship Specialty Start Date End Date Barciona Gtz, Melanie, MD [address] [place] [address] PCP - General Internal Medicine 03/05/22 Nathan Duvall MD [address] [place] [address] Physician Psychiatry, General 03/05/22 Man Fragoso MD [address] [place] [address] Internal Medicine 04/12/24 Marquis Luo, RN [address] [place] [address] Nurse Navigator Surgery, Neurosurgery 06/03/24 documented as of this encounter
== END 2024-06-08 15:29 | disposition home or self-care (01) ==
LOC: HO.HHCL 15:28
PROVIDERS: Visit Provider Internal Medicine
DX: Z01.810 Encounter for preprocedural cardiovascular examination (principal); I10 Essential (primary) hypertension; E11.65 Type 2 diabetes mellitus with hyperglycemia; Z79.4 Long term (current) use of insulin
CPT/HCPCS: 36415; 80048; 80061; 82043; 82570; 83036; 85025; 85610; 85730